=== PATIENT | male | born 1975 | race Caucasian/White ===

== ENCOUNTER 2017-09-04 11:40 | Inpatient (IN) | payer BC ==
[2017-09-04 12:16] LABS: Hematocrit 49 % (42-52); Hemoglobin 15.4 g/dl (14.0-18.0); Mean Corpuscular HGB Conc 32 g/dl (31-36); Mean Corpuscular Hemoglobin 28 pg (27-31); Mean Corpuscular Volume 88 fL (80-94); Mean Platelet Volume 9 um3 (7.4-10.4); Red Blood Count 5.55 10^6/ul (4.0-5.4); Red Cell Distribution Width 16 % (10.5-15); White Blood Count 12.2 10^3/ul (3.5-10.8)
[2017-09-04] MEDS ORDERED: methylPREDNISolone 125 MG* 2 ML VIAL IV ONE (12:24)
[2017-09-04] MEDS ORDERED: cefTRIAXone(*) 1 GM in NS 0.9% 50 ML* 50 ML IVPB ONE (12:25)
[2017-09-04 12:27] LABS: Albumin 3.5 g/dL (3.2-5.2); BUN/Creatinine Ratio 15.5 (8-20); Calcium 8.9 mg/dL (8.6-10.3); EGFR African American 200.6 (>60); Globulin 3.3 g/dL (2-4); Potassium 4.3 mmol/L (3.5-5.0); Total Bilirubin 0.6 mg/dL (0.2-1.0); Total Protein 6.8 g/dL (6.4-8.9)
[2017-09-04 12:29] LABS: Troponin I 0.02 ng/mL (<0.04)
--- NOTE | 2017-09-04 12:45 | RAD ---
Indication: Shortness of breath. Single frontal view of the chest performed at 1215 hours was reviewed. Comparison is made with previous exam dated March 09, 2017. Right basilar atelectasis is noted. Left lung field is clear. IMPRESSION: LIKELY RIGHT BASILAR ATELECTASIS. ELEVATED RIGHT HEMIDIAPHRAGM.
[2017-09-04] MEDS ORDERED: Albuterol/Ipratropium NEB.SOL* Albuterol 2.5 MG/Ipratropium 0.5 MG 3 ML INH SCH (13:00)
[2017-09-04] MEDS ORDERED: cefTRIAXone VIAL(*) 1,000 MG in NS 0.9% 50 ML* 50 ML IVPB ONE (13:00)
[2017-09-04] MEDS ORDERED: Azithromycin IV(*) 500 MG in NS 0.9% 250 ML* 250 ML IVPB ONE (13:22)
[2017-09-04] MEDS ORDERED: Azithromycin IV* 500 MG ADVAN VIAL IVPB ONE (13:38)
[2017-09-04] MEDS ORDERED: Iohexol 350* (CONTRAST) 500 ML MDV IV ONE (14:00)
[2017-09-04] MEDS ORDERED: Acetaminophen TAB* 325 MG PO PRN (14:07)
[2017-09-04] MEDS ORDERED: Ondansetron INJ* 2 MG/ML VIAL IV PRN (14:07)
[2017-09-04] MEDS ORDERED: Dextrose 50% Syringe 50 ML* 25 GM/50 ML SYRINGE IV PUSH PRN (14:10)
[2017-09-04 14:21] LABS: PCO2 Arterial 75 mmHg (35-45)
[2017-09-04] MEDS ORDERED: Insulin GLARGINE(*) 1 UNITS UNIT SUBCUT ONE (14:43)
[2017-09-04] MEDS ORDERED: Insulin LISPRO* 1 UNITS UNIT SUBCUT ONE (14:44)
[2017-09-04] MEDS ORDERED: Albuterol 2.5 MG/3 ML NEB.SOL* (0.083%) INH SCH (15:00)
--- NOTE | 2017-09-04 15:03 | RAD ---
Indication: Hypoxia, tachycardia. Contrast: Administered 99.1 ml of OMNIPAQUE 350 mg/ml. CTA of the chest was performed after IV contrast administration. Coronal and sagittal reconstructed images were obtained. The pulmonary arterial tree is moderately opacified. No obvious filling defects are noted. Aorta demonstrates no evidence of aortic dissection or dilatation. The heart demonstrates no pericardial effusion. There is airspace disease in the right middle lobe air bronchograms consistent with right middle lobe pneumonia. No pleural fluid is identified. Heart demonstrates no pericardial effusion. No mediastinal or hilar adenopathy is noted. The visualized abdominal organs are grossly unremarkable. IMPRESSION: No evidence of pulmonary embolus is noted. Findings consistent with right middle lobe pneumonia.
[2017-09-04] MEDS ORDERED: Albuterol/Ipratropium NEB.SOL* Albuterol 2.5 MG/Ipratropium 0.5 MG 3 ML INH PRN (15:38)
[2017-09-04] MEDS: Lisinopril TAB* 10 MG PO SCH (15:54)
[2017-09-04] MEDS: Heparin VIAL(*) 5000 UNITS/ML VIAL (FIVE THOUSAND) SUBCUT SCH ×2 (15:54→23:05)
[2017-09-04] MEDS: methylPREDNISolone SOD 40 MG* 1 ML VIAL IV SCH ×2 (15:55→23:06)
[2017-09-04] MEDS: Insulin LISPRO* 1 UNITS UNIT SUBCUT SCH ×2 (16:51→23:03)
--- NOTE | 2017-09-04 17:03 | PN ---
Hospitalist Progress Note HOSPITALIST ADDENDUM: Attempt made for BiPAP and patient refused due to claustrophobia with masks. D/ w patient risks of uncorrected acidosis adn explained that this is part of the treatment for his pneumonia. Patient demonstrated understanding of risk and prefers to wear oxygen only. See full H&P for remainder treatment plan.
[2017-09-04] MEDS ORDERED: Influenza VAC *QUAD* 2017-18* 0.5 ML SYRINGE IM ONE (18:00)
[2017-09-04] MEDS: hydrALAZINE IV* 20 MG/ML VIAL IV SLOW PU PRN (19:22)
--- NOTE | 2017-09-04 21:40 | HP ---
CC: Dr. Christie at [facility] * HISTORY AND PHYSICAL: DATE OF ADMISSION: 09/04/17 PRIMARY CARE PHYSICIAN: Dr. Christie at [facility]. ATTENDING PHYSICIAN: Jeana Schmidt MD * (report dictated by Mya Cruz NP). CHIEF COMPLAINT: Shortness of breath. HISTORY OF PRESENT ILLNESS: The patient is a 41-year-old male with a history of morbid obesity, hypertension, diabetes, hyperlipidemia, who presented to [facility] care today with the complaint of 10 days of chest cold. He has been using [id number] treatments such as Tylenol and NyQuil. The patient reported feeling clammy with flu symptoms as well as intermittent cough and achiness. The patient had a lapse in his health insurance, hence he was not able to seek out care during this time. He found a bottle of amoxicillin that he had left over and took 4 days of the 500 mg dose. He felt better while on the antibiotics, but once they finished, he began to feel worse. For the last 4 days, he has been worsening cough, lethargy as well as dyspnea on exertion. The patient denied any chills, sweats or fever. The patient also reported some mild pleuritic chest pain that he feels is secondary to his coughing. In addition, the patient ran out of his diabetes medication and blood pressure medicine. The patient says normally his blood sugars run between 95 to 140. Today, the patient went to urgent care for further evaluation, there he was found to be hypoxic and sent to the emergency room here for further evaluation. In the emergency room, the patient was found to have a saturation of 85% on room air. The patient had a chest x-ray that showed likely right basilar atelectasis versus pneumonia. The patient has a slightly elevated white count at 12,000 and a blood gas that showed pH of 7.32 and a pCO2 of 75. The patient was given ceftriaxone and azithromycin. Hospitalists were called to evaluate the patient for admission. The patient will be admitted to the intensive care unit for aaoli-hi-anoadjo hypercarbic respiratory failure secondary to pneumonia. PAST MEDICAL HISTORY: 1. Morbid obesity. 2. Hypertension. 3. Diabetes. 4. Hyperlipidemia. 5. History of asthma as a kid. HOME MEDICATIONS: Include: 1. Glimepiride 2 mg oral twice daily. 2. Lipitor 10 mg oral daily. 3. Neurontin 300 mg at bedtime. 4. Lisinopril 50 mg daily. ALLERGIES: None. FAMILY HISTORY: The patient states hypertension runs in his family. He denies any other family history of diabetes or cancer. SOCIAL HISTORY: The patient smoked half a pack of cigarettes for 5 to 7 years, he quit 10 years ago. He states he drinks alcohol approximately 2 to 3 times a month, but not recently. 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 He is not , does not have children. He lives with his father, Shekhar Ann, who will be the surrogate decision maker in the event the patient cannot make decisions for himself. REVIEW OF SYSTEMS: I performed a 14-point review of systems. All the pertinent positives and negatives are mentioned in the history of present illness. The remaining review of systems are negative. PHYSICAL EXAMINATION GENERAL APPEARANCE: The patient is a morbidly obese male, sitting up in bed, in no apparent distress. VITAL SIGNS: Temperature 97.4, heart rate 90, respiratory rate 16, oxygen saturation 91%, currently on 5 L, blood pressure 160/88. HEAD, EYES, EARS, NOSE, and THROAT: Normocephalic/atraumatic. Pupils are equal and reactive to light. Extraocular movements were intact. NECK: Neck was supple. There is no lymphadenopathy noted. RESPIRATORY: There were some accessory muscle use. There was wheezing heard at the bases bilaterally as well as some rhonchi in the right base. CARDIAC: S1, S2 were crisp. There were no murmurs, rubs, or gallops heard. ABDOMEN: Firm, slightly reddened. Bowel sounds were distant. No pain on palpation. EXTREMITIES: There was no lower extremity edema. DP and PT pulses were 2+ and symmetric. MUSCULOSKELETAL: There is no clubbing or cyanosis noted. The patient exhibited equal strength in all extremities. NEURO: Cranial nerves II through XII were intact. The patient moves all extremities. Lower extremities were intact to light touch. PSYCH: The patient is alert and oriented x3. SKIN: There were no rashes or abnormalities seen. DIAGNOSTIC STUDIES/LAB DATA: Sodium 135, potassium 4.3, chloride 95, CO2 36, BUN 9, creatinine 0.58, glucose 342, lactic acid 1.3. Liver function tests within normal limits. Troponin is 0.02. White blood cell count 12.2, hemoglobin 15.4, hematocrit 49, platelet count 189,000. Blood gas; pH is 7.32, pCO2 75, pO2 62, bicarb 31.6, oxygen 91.3. EKG shows sinus rhythm with a rate of 96 with Q waves inferiorly. This is unchanged from a prior EKG earlier this year in February. Chest x-ray from today shows likely right basilar atelectasis, elevated right hemidiaphragm. IMPRESSION: This is a 41-year-old male with past medical history significant for morbid obesity, hypertension, diabetes currently uncontrolled, who presents to the emergency room with worsening shortness of breath, found to have acute hypercarbic and hypoxic respiratory failure secondary to pneumonia. The patient will be admitted to the ICU. ASSESSMENT AND PLAN: 1. Acute mixed hypercarbic hypoxic respiratory failure secondary to pneumonia. The patient will be placed in the ICU and placed on BiPAP. Once the patient is on BiPAP for an hour, we will redraw blood gas and if the patient's respiratory acidosis has resolved, then the patient will be removed from BiPAP, at that point he will be allowed to eat. It is likely the respiratory failure is secondary to pneumonia as well as asthma exacerbation. The patient was given ceftriaxone and Zithromax here in the emergency room and these antibiotics will continue. In addition, the patient was given a dose of IV Solu-Medrol. Solu- Medrol will continue as well as albuterol nebulizers. Although the patient has no current history of asthma, it is likely he has obesity hypoventilation and will likely need a sleep study as an outpatient. Oxygen will be weaned as needed. In addition, given the patient has tachycardia and hypoxia as well as morbid obesity and recent immobility, he is at risk for pulmonary embolism. The patient will have a CT of his chest to rule out pulmonary embolism which will also provide better images of his right base. The patient may benefit from pulmonology outpatient referral at discharge. 2. Type 2 diabetes with hypoglycemia. The patient states he has been off his oral medications for 2 days. His sugar is close to 350. He will be given 15 of Lantus now as well as 25 of lispro. I will start Lantus daily in the morning and continue with an aggressive lispro sliding scale. Once he can eat, he will be started on a consistent carb diet. Oral diabetic medications will be held and can be restarted at discharge. 3. Hypertension. The patient's blood pressure is uncontrolled. He will receive lisinopril now and this will continue on a daily basis. 4. Fluids, electrolytes and nutrition. N.p.o. for while he is on BiPAP and consistent carb diet when able. 5. Code status is full. 6. DVT prophylaxis. He is at high risk. He will have subcu heparin. TIME SPENT: Time for this admission was 60 minutes, and over 35 minutes was spent with the patient discussing past medical history, medications, and events leading up to her arrival in the emergency room. Reviewed by MYA CRUZ NP 09/05/2017 [id number]/CPS #: [id number] [place]
[2017-09-04] MEDS: Gabapentin CAP(*) 300 MG PO SCH (23:11)
[2017-09-05] MEDS: Heparin VIAL(*) 5000 UNITS/ML VIAL (FIVE THOUSAND) SUBCUT SCH ×3 (06:03→22:14)
[2017-09-05 06:44] LABS: Hematocrit 48 % (42-52); Hemoglobin 14.9 g/dl (14.0-18.0); Mean Corpuscular HGB Conc 31 g/dl (31-36); Mean Corpuscular Hemoglobin 28 pg (27-31); Mean Corpuscular Volume 89 fL (80-94); Mean Platelet Volume 9 um3 (7.4-10.4); Red Blood Count 5.36 10^6/ul (4.0-5.4); Red Cell Distribution Width 16 % (10.5-15); White Blood Count 14.1 10^3/ul (3.5-10.8)
[2017-09-05 07:05] LABS: BUN/Creatinine Ratio 16.9 (8-20); Calcium 9.3 mg/dL (8.6-10.3); EGFR African American 175.9 (>60); EGFR Non-African American 136.8 (>60); Potassium 4.8 mmol/L (3.5-5.0)
[2017-09-05] MEDS: methylPREDNISolone SOD 40 MG* 1 ML VIAL IV SCH (07:40)
[2017-09-05 08:48] LABS: FIO2 6
[2017-09-05 08:58] LABS: PCO2 Arterial 76 mmHg (35-45)
[2017-09-05] MEDS: Lisinopril TAB* 10 MG PO SCH (09:21)
[2017-09-05] MEDS: Atorvastatin* 10 MG TAB PO SCH (09:23)
[2017-09-05] MEDS: Insulin GLARGINE(*) 1 UNITS UNIT SUBCUT SCH (09:23)
[2017-09-05] MEDS: Insulin LISPRO* 1 UNITS UNIT SUBCUT SCH ×4 (09:24→21:27)
--- NOTE | 2017-09-05 10:23 | PN ---
Subjective Date of Service: 09/05/17 Interval History: This is a 41 yo obese male with DM, HTN and HLD admitted yesterday with PNA. He was started on ceftriaxone/azithromycin. Initially recommended BiPAP which patient refused due to claustrophobia from the mask. This am, ABG looks similar , but patient reports significant improvement in symptoms. Still coughing occasionally. Dyspnea improving. Still on 6L supp O2, afebrile overnight. He denies abd pain, n/v/d. No CP. Objective Active Medications: Acetaminophen (Tylenol Tab*) 650 mg PO Q4H PRN PRN Reason: PAIN Albuterol/Ipratropium (Duoneb (Albuterol 2.5 Mg/Ipratropium 0.5 Mg)) 1 neb INH Q4H PRN PRN Reason: SOB/WHEEZING Atorvastatin Calcium (Lipitor*) 10 mg PO DAILY [facility] Last Admin: 09/05/17 09:23 Dose: 10 mg Dextrose (D50w Syringe 50 Ml*) 12.5 gm IV PUSH .FOR FS < 60 - SS PRN PRN Reason: FS < 60 Gabapentin (Neurontin Cap(*)) 300 mg PO BEDTIME [facility] Last Admin: 09/04/17 23:11 Dose: 300 mg Heparin Sodium (Porcine) (Heparin Vial(*)) 5,000 units SUBCUT Q8HR [facility] Last Admin: 09/05/17 06:03 Dose: 5,000 units Hydralazine HCl (Apresoline Iv*) 5 mg IV SLOW PU Q6H PRN PRN Reason: SBP>170 Last Admin: 09/04/17 19:22 Dose: 5 mg Ceftriaxone Sodium 1,000 mg/ (Sodium Chloride) 50 mls @ 200 mls/hr IVPB Q24H [facility] Azithromycin 500 mg/ Sodium (Chloride) 250 mls @ 250 mls/hr IVPB Q24H [facility] Insulin Glargine (Lantus(*)) 20 units SUBCUT DAILY [facility] Last Admin: 09/05/17 09:23 Dose: 20 unit Insulin Human Lispro (Humalog*) 0 - 15 units SUBCUT ACHS [facility] PRN Reason: Protocol Last Admin: 09/05/17 09:24 Dose: 15 unit Lisinopril (Prinivil Tab*) 15 mg PO DAILY [facility] Last Admin: 09/05/17 09:21 Dose: 15 mg Methylprednisolone Sodium Succinate (Solu-Medrol 40 Mg) 40 mg IV Q8H [facility] Last Admin: 09/05/17 07:40 Dose: 40 mg Ondansetron HCl (Zofran Inj*) 4 mg IV Q6H PRN PRN Reason: NAUSEA Vital Signs: Temp Pulse Resp BP Pulse Ox 97.8 F 91 20 154/83 94 09/05/17 03:47 09/05/17 03:47 09/05/17 03:47 09/05/17 03:47 09/05/17 03:47 Oxygen Devices in Use Now: Nasal Cannula Appearance: Morbidly obese, somewhat fatigued, but alert and in NAD Respiratory: Symmetrical Chest Expansion and Respiratory Effort, - - diffuse wheeze, few crackles in R lung calix Cardiovascular: NL Sounds; No Murmurs; No JVD, RRR Extremities: No Edema Skin: No Rash or Ulcers Neurological: Alert and Oriented x 3 Result Diagrams: 09/05/17 06:03 09/05/17 06:03 Microbiology and Other Data: Microbiology 09/04/17 15:30 Nasal Screen MRSA (PCR)([facility]) - Final Nasal Mrsa Negative 09/04/17 15:30 Influenza Types A,B Antigen ([facility]) - Final Nasal Specimen received for Influenza A/B Molecular testing Diagnostic Imaging: CXR - poor film quality, ?RLL infiltrate CTA chest - no PE, RML infiltrate Assess/Plan/Problems-Billing Assessment: This is a 41 yo male with morbid obesity, DM, HTN, HLD who presented with c/o SOB noted to be hypoxic with RML infiltrate on CT. Admitted with CAP. - Patient Problems (1) CAP (community acquired pneumonia) Comment: Associated acute resp acidosis, patient refused BiPAP Symptomatically improving Cont ceftriaxone/azithro Started corticosteroids for assumed associated RAD (2) Diabetes Comment: Significantly hyperglycemia, will check HgbA1c Assume most of the hyperglycemia at this time is due to acute illness and steroids Treat with basal/bolus regimen (3) Hypertension Comment: Moderately hypertensive, poorly controlled at admission Usual home medications restarted after being without for several days (4) Morbid obesity Comment: BMI 56 (5) Hyperlipidemia (6) Full code status (7) DVT prophylaxis Comment: Heparin SQ Status and Disposition: Full code. Anticipate additional 2-3d LOS. Requested SW consult to address potential insurance concerns
[2017-09-05] MEDS: cefTRIAXone VIAL(*) 1,000 MG in NS 0.9% 50 ML* 50 ML IVPB SCH (15:51)
[2017-09-05] MEDS: Azithromycin IV(*) 500 MG in NS 0.9% 250 ML* 250 ML IVPB SCH (16:33)
[2017-09-05] MEDS ORDERED: Insulin GLARGINE(*) 1 UNITS UNIT SUBCUT ONE (16:51)
[2017-09-05] MEDS: Gabapentin CAP(*) 300 MG PO SCH (21:24)
[2017-09-06] MEDS: Heparin VIAL(*) 5000 UNITS/ML VIAL (FIVE THOUSAND) SUBCUT SCH ×3 (05:41→21:26)
[2017-09-06 08:03] LABS: Hematocrit 46 % (42-52); Hemoglobin 14.4 g/dl (14.0-18.0); Mean Corpuscular HGB Conc 32 g/dl (31-36); Mean Corpuscular Hemoglobin 28 pg (27-31); Mean Corpuscular Volume 88 fL (80-94); Mean Platelet Volume 9 um3 (7.4-10.4); Red Blood Count 5.16 10^6/ul (4.0-5.4); Red Cell Distribution Width 16 % (10.5-15); White Blood Count 14.4 10^3/ul (3.5-10.8)
[2017-09-06] MEDS: Lisinopril TAB* 10 MG PO SCH (08:21)
[2017-09-06] MEDS: Atorvastatin* 10 MG TAB PO SCH (08:22)
[2017-09-06] MEDS: predniSONE TAB* 20 MG PO SCH (08:23)
[2017-09-06] MEDS: Insulin GLARGINE(*) 1 UNITS UNIT SUBCUT SCH (08:23)
[2017-09-06] MEDS: Insulin LISPRO* 1 UNITS UNIT SUBCUT SCH ×4 (08:24→21:26)
[2017-09-06 08:28] LABS: BUN/Creatinine Ratio 26.2 (8-20); Calcium 9.1 mg/dL (8.6-10.3); EGFR African American 189.3 (>60); EGFR Non-African American 147.2 (>60); Potassium 4.2 mmol/L (3.5-5.0)
--- NOTE | 2017-09-06 11:57 | ED ---
Patrica Bullard Jason, scribed for Ubaldo Pete MD on 09/04/17 at 1215 . Shortness of Breath - HPI Summary HPI Summary: This patient is a 41 year old M [place] [facility] by male with a chief complaint of SOB since 10 days. The patient rates the pain 0/10 in severity. Symptoms aggravated by nothing Symptoms alleviated by nothing. Patient reports coughing (non-productive), mild rhinorrhea. Patient denies CP, palpitations, fever, chills, sore throat. Additionally, the patient states he did not take the medication he usually takes. - History of Current Complaint Chief Complaint: EDShortnessOfBreath Time Seen by Provider: 09/04/17 12:08 Hx Obtained From: Patient Onset/Duration: Gradual Onset, Lasting Days - since 10 days ago, Still Present Aggrevating Factors: Nothing Alleviating Factors: Nothing Associated Signs & Symptoms: Negative - CP, palpitations, fever, chills, sore throat, Cough (Nonproductive) - Allergy/Home Medications Allergies/Adverse Reactions: Allergies Allergy/AdvReac Type Severity Reaction Status Date / Time No Known Allergies Allergy Verified 09/04/17 12:03 PMH/Surg Hx/FS Hx/Imm Hx Previously Healthy: No Endocrine/Hematology History: Reports: Hx Diabetes - type 2 Denies: Hx Thyroid Disease Cardiovascular History: Denies: Hx Hypertension Respiratory History: Reports: Hx Asthma - as a child Denies: Hx Chronic Obstructive Pulmonary Disease (COPD) GI History: Denies: Hx Ulcer Infectious Disease History: Yes Infectious Disease History: Denies: Hx Clostridium Difficile, Hx Hepatitis, Hx Human Immunodeficiency Virus (HIV), History Other Infectious Disease, Traveled Outside the in Last 30 Days - Family History Known Family History: Positive: Hypertension, Diabetes Negative: Cardiac Disease - Social History Occupation: Employed Full-time Lives: Alone Alcohol Use: Occasionally Substance Use Type: Reports: None Smoking Status (MU): Former Smoker Review of Systems Negative: Fever, Chills Positive: Other - mild rhinorrhea. Negative: Sore Throat Negative: Palpitations, Chest Pain Positive: Cough - non-productive All Other Systems Reviewed And Are Negative: Yes Physical Exam - Summary Physical Exam Summary: VITAL SIGNS: Reviewed. GENERAL: ~Patient is an obese male who is lying comfortable in the stretcher. ~ Patient is not in any acute respiratory distress. HEAD AND FACE: No signs of trauma. ~No ecchymosis, hematomas or skull depressions. No sinus tenderness. EYES: PERRLA, EOMI x 2, No injected conjunctiva, no nystagmus. EARS: Hearing grossly intact. Ear canals and tympanic membranes are within normal limits. MOUTH: Oropharynx within normal limits. NECK: Supple, trachea is midline, no adenopathy, no JVD, no carotid bruit, no c- spine tenderness, neck with full ROM. CHEST: Symmetric, no tenderness at palpation LUNGS: Clear to auscultation bilaterally. No wheezing or crackles. Decreased breath sounds bilaterally. CVS: Tachycardic, S1 and S2 present, no murmurs or gallops appreciated. ABDOMEN: Soft, non-tender. No signs of distention. No rebound no guarding, and no masses palpated. Bowel sounds are normal. EXTREMITIES: FROM in all major joints, no edema, no cyanosis or clubbing. NEURO: Alert and oriented x 3. No acute neurological deficits. Speech is normal and follows commands. SKIN: Dry and warm Triage Information Reviewed: Yes Vital Signs On Initial Exam: Initial Vitals Temp Pulse Resp BP Pulse Ox 97.4 F 96 22 162/96 92 09/04/17 11:44 09/04/17 11:44 09/04/17 11:44 09/04/17 11:44 09/04/17 11:44 Vital Signs Reviewed: Yes - [place] Coma Scale Coma Scale Total: 15 Diagnostics - Vital Signs Vital Signs Temp Pulse Resp BP Pulse Ox 09/04/17 12:10 30 09/04/17 12:00 93 28 178/96 93 09/04/17 11:50 93 24 91 09/04/17 11:49 160/91 09/04/17 11:44 97.4 F 96 22 162/96 92 - Laboratory Lab Results: Lab Results 09/04/17 09/04/17 09/04/17 Range/Units 12:05 12:05 12:05 WBC 12.2 H (3.5-10.8) 10^3/ul RBC 5.55 H (4.0-5.4) 10^6/ul Hgb 15.4 (14.0-18.0) g/dl Hct 49 (42-52) % MCV 88 (80-94) fL MCH 28 (27-31) pg MCHC 32 (31-36) g/dl RDW 16 H (10.5-15) % Plt Count 189 (150-450) 10^3/ul MPV 9 (7.4-10.4) um3 Neut % (Auto) 87.2 H (38-83) % Lymph % (Auto) 7.3 L (25-47) % Bertie % (Auto) 5.0 (1-9) % Eos % (Auto) 0.3 (0-6) % Baso % (Auto) 0.2 (0-2) % Absolute Neuts (auto) 10.6 H (1.5-7.7) 10^3/ul Absolute Lymphs (auto) 0.9 L (1.0-4.8) 10^3/ul Absolute Monos (auto) 0.6 (0-0.8) 10^3/ul Absolute Eos (auto) 0 (0-0.6) 10^3/ul Absolute Basos (auto) 0 (0-0.2) 10^3/ul Absolute Nucleated RBC 0.01 10^3/ul Nucleated RBC % 0 ABG pH (7.35-7.45) ABG pCO2 (35-45) mmHg ABG pO2 (80-100) mmHg ABG HCO3 (19-31) mmol/L ABG O2 Saturation (95-98) % ABG Base Excess (-2.0-2.0) Sodium 135 (133-145) mmol/L Potassium 4.3 (3.5-5.0) mmol/L Chloride 95 L (101-111) mmol/L Carbon Dioxide 36 H (22-32) mmol/L Anion Gap 4 (2-11) mmol/L BUN 9 (6-24) mg/dL Creatinine 0.58 L (0.67-1.17) mg/dL Est GFR ( Amer) 200.6 (>60) Est GFR (Non-Af Amer) 156.0 (>60) BUN/Creatinine Ratio 15.5 (8-20) Glucose 342 H (70-100) mg/dL Lactic Acid 1.3 (0.5-2.0) mmol/L Calcium 8.9 (8.6-10.3) mg/dL Total Bilirubin 0.60 (0.2-1.0) mg/dL AST 19 (13-39) U/L ALT 33 (7-52) U/L Alkaline Phosphatase 83 (34-104) U/L Troponin I 0.02 (<0.04) ng/mL Total Protein 6.8 (6.4-8.9) g/dL Albumin 3.5 (3.2-5.2) g/dL Globulin 3.3 (2-4) g/dL Albumin/Globulin Ratio 1.1 (1-3) 09/04/17 Range/Units 14:00 WBC (3.5-10.8) 10^3/ul RBC (4.0-5.4) 10^6/ul Hgb (14.0-18.0) g/dl Hct (42-52) % MCV (80-94) fL MCH (27-31) pg MCHC (31-36) g/dl RDW (10.5-15) % Plt Count (150-450) 10^3/ul MPV (7.4-10.4) um3 Neut % (Auto) (38-83) % Lymph % (Auto) (25-47) % Bertie % (Auto) (1-9) % Eos % (Auto) (0-6) % Baso % (Auto) (0-2) % Absolute Neuts (auto) (1.5-7.7) 10^3/ul Absolute Lymphs (auto) (1.0-4.8) 10^3/ul Absolute Monos (auto) (0-0.8) 10^3/ul Absolute Eos (auto) (0-0.6) 10^3/ul Absolute Basos (auto) (0-0.2) 10^3/ul Absolute Nucleated RBC 10^3/ul Nucleated RBC % ABG pH 7.32 L (7.35-7.45) ABG pCO2 75 H* (35-45) mmHg ABG pO2 62 L (80-100) mmHg ABG HCO3 31.6 H (19-31) mmol/L ABG O2 Saturation 91.3 L (95-98) % ABG Base Excess 8.9 H (-2.0-2.0) Sodium (133-145) mmol/L Potassium (3.5-5.0) mmol/L Chloride (101-111) mmol/L Carbon Dioxide (22-32) mmol/L Anion Gap (2-11) mmol/L BUN (6-24) mg/dL Creatinine (0.67-1.17) mg/dL Est GFR ( Amer) (>60) Est GFR (Non-Af Amer) (>60) BUN/Creatinine Ratio (8-20) Glucose (70-100) mg/dL Lactic Acid (0.5-2.0) mmol/L Calcium (8.6-10.3) mg/dL Total Bilirubin (0.2-1.0) mg/dL AST (13-39) U/L ALT (7-52) U/L Alkaline Phosphatase (34-104) U/L Troponin I (<0.04) ng/mL Total Protein (6.4-8.9) g/dL Albumin (3.2-5.2) g/dL Globulin (2-4) g/dL Albumin/Globulin Ratio (1-3) Result Diagrams: 09/06/17 07:41 09/06/17 07:41 Lab Statement: Any lab studies that have been ordered have been reviewed, and results considered in the medical decision making process. - Radiology CXR Radiology Interpretation Completed By: Radiologist - LIKELY RIGHT BASILAR ATELECTASIS. ELEVATED RIGHT HEMIDIAPHRAGM. ED physician has reviewed this radiology report and agrees. - CT chest/thorax CT Interpretation Completed By: Radiologist - No evidence of pulmonary embolus is noted. Findings consistent with right middle lobe pneumonia. ED physician has reviewed this radiology report and agrees. - EKG 1302 Cardiac Rate: NL EKG Rhythm: Sinus Rhythm ST Segment: Normal - No ST elevations EKG Interpretation: Q waves in 2, 3, and AVF. Course/Dx - Course Course Of Treatment: This patient is a 41 year old M BIBA to [facility] accompanied by male with a chief complaint of SOB since 10 days. The patient rates the pain 0/10 in severity. Symptoms aggravated by nothing Symptoms alleviated by nothing. Patient reports coughing (non-productive), mild rhinorrhea. Patient denies CP, palpitations, fever, chills, sore throat. Additionally, the patient did not take the medication he usually takes. Blood work is without significant abnormalities except WBC of 12.2 without bandemia, Glucose of 342 consistent with his diabetes. ABG has a pH of 7.32. pCO2 is 75,pO2 is 62, O2 saturation is 91. CXR reveals, per radiologist, LIKELY RIGHT BASILAR ATELECTASIS. ELEVATED RIGHT HEMIDIAPHRAGM.Chest/Thorax CTA reveals No evidence of pulmonary embolus is noted. Findings consistent with right middle lobe pneumonia. Assessment/Plan: The pt was given rocephin and azithromycin. The patient has developed pneumonia and was placed in a bipap because of his hypoxia and hyperpnea. I discussed findings with Dr. Rendon, and she has accepted the pt for admission. The pt is hemodynamically stable, alert and oriented x3. - Diagnoses Differential Diagnosis/HQI/PQRI: Positive: Bronchitis, CHF, Chest Wall Pain, COPD Exacerbation, Pneumonia Provider Diagnoses: Pneumonia Discharge - Discharge Plan Condition: Stable Disposition: ADMITTED TO [facility] documentation as recorded by the Patrica thorne Jason accurately reflects the service I personally performed and the decisions made by , Ubaldo Pete MD.
[2017-09-06] MEDS ORDERED: Insulin GLARGINE(*) 1 UNITS UNIT SUBCUT ONE (13:04)
--- NOTE | 2017-09-06 13:05 | PN ---
Subjective Date of Service: 09/06/17 Interval History: Patient still has a freq cough, dyspnea improving. He was able to take a shower today with few symptoms. Objective Active Medications: Acetaminophen (Tylenol Tab*) 650 mg PO Q4H PRN PRN Reason: PAIN Albuterol/Ipratropium (Duoneb (Albuterol 2.5 Mg/Ipratropium 0.5 Mg)) 1 neb INH Q4H PRN PRN Reason: SOB/WHEEZING Atorvastatin Calcium (Lipitor*) 10 mg PO DAILY [facility] Last Admin: 09/06/17 08:22 Dose: 10 mg Dextrose (D50w Syringe 50 Ml*) 12.5 gm IV PUSH .FOR FS < 60 - SS PRN PRN Reason: FS < 60 Gabapentin (Neurontin Cap(*)) 300 mg PO BEDTIME [facility] Last Admin: 09/05/17 21:24 Dose: 300 mg Heparin Sodium (Porcine) (Heparin Vial(*)) 5,000 units SUBCUT Q8HR [facility] Last Admin: 09/06/17 12:38 Dose: 5,000 units Hydralazine HCl (Apresoline Iv*) 5 mg IV SLOW PU Q6H PRN PRN Reason: SBP>170 Last Admin: 09/04/17 19:22 Dose: 5 mg Ceftriaxone Sodium 1,000 mg/ (Sodium Chloride) 50 mls @ 200 mls/hr IVPB Q24H [facility] Last Admin: 09/05/17 15:51 Dose: 200 mls/hr Azithromycin 500 mg/ Sodium (Chloride) 250 mls @ 250 mls/hr IVPB Q24H [facility] Last Admin: 09/05/17 16:33 Dose: 250 mls/hr Insulin Glargine (Lantus(*)) 40 units SUBCUT DAILY [facility] Insulin Human Lispro (Humalog*) 0 - 15 units SUBCUT ACHS [facility] PRN Reason: Protocol Last Admin: 09/06/17 12:37 Dose: 15 unit Lisinopril (Prinivil Tab*) 15 mg PO DAILY [facility] Last Admin: 09/06/17 08:21 Dose: 15 mg Ondansetron HCl (Zofran Inj*) 4 mg IV Q6H PRN PRN Reason: NAUSEA Prednisone (Deltasone Tab*) 40 mg PO DAILY [facility] Last Admin: 09/06/17 08:23 Dose: 40 mg Vital Signs: Temp Pulse Resp BP Pulse Ox 97.7 F 88 18 158/82 92 09/06/17 08:04 09/06/17 08:04 09/06/17 08:04 09/06/17 08:15 09/06/17 08:04 Oxygen Devices in Use Now: Nasal Cannula Appearance: Well appearing obese young gentleman in NAD Respiratory: Symmetrical Chest Expansion and Respiratory Effort, - - diffuse wheeze, no crackles or rhonchi Cardiovascular: NL Sounds; No Murmurs; No JVD, RRR Abdominal: NL Sounds; No Tenderness; No Distention Extremities: No Edema Skin: No Rash or Ulcers Neurological: Alert and Oriented x 3 Result Diagrams: 09/06/17 07:41 09/06/17 07:41 Additional Lab and Data: . Microbiology and Other Data: Microbiology 09/04/17 15:30 Nasal Screen MRSA (PCR)([facility]) - Final Nasal Mrsa Negative 09/04/17 15:30 Influenza Types A,B Antigen ([facility]) - Final Nasal Specimen received for Influenza A/B Molecular testing Diagnostic Imaging: CXR - poor film quality, ?RLL infiltrate CTA chest - no PE, RML infiltrate Assess/Plan/Problems-Billing Assessment: This is a 41 yo male with morbid obesity, DM, HTN, HLD who presented with c/o SOB noted to be hypoxic with RML infiltrate on CT. Admitted with CAP. - Patient Problems (1) CAP (community acquired pneumonia) Comment: Associated acute resp acidosis, patient refused BiPAP Symptomatically improving Cont ceftriaxone/azithro Started corticosteroids for assumed associated RAD as he does have a wheeze on exam (2) Diabetes Comment: Significantly hyperglycemia HgbA1c 11.3% Will titrate up Lantus, he will need to go home with insulin (3) Hypertension Comment: Moderately hypertensive, poorly controlled at admission Usual home medications restarted after being without for several days Will add amlodipine to his lisinopril for better control (4) Morbid obesity Comment: BMI 56 (5) Hyperlipidemia (6) Full code status (7) DVT prophylaxis Comment: Heparin SQ Status and Disposition: Full code. Anticipate additional 1-2d LOS.
[2017-09-06] MEDS: amLODIPine TAB* 5 MG PO SCH (13:37)
[2017-09-06] MEDS: cefTRIAXone VIAL(*) 1,000 MG in NS 0.9% 50 ML* 50 ML IVPB SCH (15:27)
[2017-09-06] MEDS: Azithromycin IV(*) 500 MG in NS 0.9% 250 ML* 250 ML IVPB SCH (16:08)
[2017-09-06] MEDS: Gabapentin CAP(*) 300 MG PO SCH (21:25)
[2017-09-07] MEDS ORDERED: Benzonatate CAP* 100 MG PO PRN (02:48)
[2017-09-07] MEDS: Heparin VIAL(*) 5000 UNITS/ML VIAL (FIVE THOUSAND) SUBCUT SCH ×3 (05:49→21:08)
[2017-09-07 07:46] LABS: Hematocrit 44 % (42-52); Hemoglobin 14.1 g/dl (14.0-18.0); Mean Corpuscular HGB Conc 32 g/dl (31-36); Mean Corpuscular Hemoglobin 28 pg (27-31); Mean Corpuscular Volume 88 fL (80-94); Mean Platelet Volume 9 um3 (7.4-10.4); Red Blood Count 5.06 10^6/ul (4.0-5.4); Red Cell Distribution Width 16 % (10.5-15); White Blood Count 10.5 10^3/ul (3.5-10.8)
[2017-09-07 07:54] LABS: BUN/Creatinine Ratio 24.1 (8-20); Calcium 9.1 mg/dL (8.6-10.3); EGFR African American 200.6 (>60); Potassium 4.2 mmol/L (3.5-5.0)
[2017-09-07] MEDS: Insulin LISPRO* 1 UNITS UNIT SUBCUT SCH ×4 (08:34→21:06)
[2017-09-07] MEDS: amLODIPine TAB* 5 MG PO SCH (08:38)
[2017-09-07] MEDS: Atorvastatin* 10 MG TAB PO SCH (08:38)
[2017-09-07] MEDS: predniSONE TAB* 20 MG PO SCH (08:38)
[2017-09-07] MEDS: Lisinopril TAB* 10 MG PO SCH (08:42)
[2017-09-07] MEDS ORDERED: Insulin GLARGINE(*) 1 UNITS UNIT SUBCUT SCH (09:00)
--- NOTE | 2017-09-07 10:13 | PN ---
Subjective Date of Service: 09/07/17 Interval History: Patient reports that he continues to improve symptomatically. He denies any dyspnea, still has an occasional cough. He was evaluated after returning from the bathroom without O2. Saturations were checked and noted to be in the high 60s at rest, he was not terribly symptomatic at that time. He improved in to the mid 90s on 2L within ~60sec of application. Objective Active Medications: Acetaminophen (Tylenol Tab*) 650 mg PO Q4H PRN PRN Reason: PAIN Albuterol/Ipratropium (Duoneb (Albuterol 2.5 Mg/Ipratropium 0.5 Mg)) 1 neb INH Q4H PRN PRN Reason: SOB/WHEEZING Amlodipine Besylate (Norvasc Tab*) 5 mg PO DAILY [facility] Last Admin: 09/07/17 08:38 Dose: 5 mg Atorvastatin Calcium (Lipitor*) 10 mg PO DAILY [facility] Last Admin: 09/07/17 08:38 Dose: 10 mg Benzonatate (Tessalon Cap*) 100 mg PO Q8H PRN PRN Reason: COUGH Last Admin: 09/07/17 03:48 Dose: 100 mg Dextrose (D50w Syringe 50 Ml*) 12.5 gm IV PUSH .FOR FS < 60 - SS PRN PRN Reason: FS < 60 Gabapentin (Neurontin Cap(*)) 300 mg PO BEDTIME [facility] Last Admin: 09/06/17 21:25 Dose: 300 mg Heparin Sodium (Porcine) (Heparin Vial(*)) 5,000 units SUBCUT Q8HR [facility] Last Admin: 09/07/17 05:49 Dose: 5,000 units Hydralazine HCl (Apresoline Iv*) 5 mg IV SLOW PU Q6H PRN PRN Reason: SBP>170 Last Admin: 09/04/17 19:22 Dose: 5 mg Ceftriaxone Sodium 1,000 mg/ (Sodium Chloride) 50 mls @ 200 mls/hr IVPB Q24H [facility] Last Admin: 09/06/17 15:27 Dose: 200 mls/hr Azithromycin 500 mg/ Sodium (Chloride) 250 mls @ 250 mls/hr IVPB Q24H [facility] Last Admin: 09/06/17 16:08 Dose: 250 mls/hr Insulin Glargine (Lantus(*)) 40 units SUBCUT DAILY [facility] Last Admin: 09/07/17 08:36 Dose: 40 units Insulin Human Lispro (Humalog*) 0 - 15 units SUBCUT ACHS [facility] PRN Reason: Protocol Last Admin: 09/07/17 08:34 Dose: 9 unit Lisinopril (Prinivil Tab*) 15 mg PO DAILY [facility] Last Admin: 09/07/17 08:42 Dose: 15 mg Ondansetron HCl (Zofran Inj*) 4 mg IV Q6H PRN PRN Reason: NAUSEA Prednisone (Deltasone Tab*) 40 mg PO DAILY [facility] Last Admin: 09/07/17 08:38 Dose: 40 mg Vital Signs: Temp Pulse Resp BP Pulse Ox 97.5 F 92 22 154/83 93 09/07/17 08:12 09/07/17 08:12 09/07/17 08:12 09/07/17 04:07 09/07/17 08:12 Oxygen Devices in Use Now: Nasal Cannula Appearance: Well appearing obese gentleman in NAD Respiratory: Symmetrical Chest Expansion and Respiratory Effort, - - faint wheeze noted, improved compared to yesterday Cardiovascular: NL Sounds; No Murmurs; No JVD, RRR Extremities: No Edema Skin: No Rash or Ulcers Neurological: Alert and Oriented x 3 Result Diagrams: 09/07/17 07:15 09/07/17 07:15 Additional Lab and Data: . Microbiology and Other Data: Microbiology 09/04/17 15:30 Nasal Screen MRSA (PCR)([facility]) - Final Nasal Mrsa Negative 09/04/17 15:30 Influenza Types A,B Antigen ([facility]) - Final Nasal Specimen received for Influenza A/B Molecular testing Diagnostic Imaging: CXR - poor film quality, ?RLL infiltrate CTA chest - no PE, RML infiltrate Assess/Plan/Problems-Billing Assessment: This is a 41 yo male with morbid obesity, DM, HTN, HLD who presented with c/o SOB noted to be hypoxic with RML infiltrate on CT. Admitted with CAP. - Patient Problems (1) CAP (community acquired pneumonia) Comment: Associated acute resp acidosis, patient refused BiPAP Symptomatically improving Cont ceftriaxone/azithro Will start to taper oral steroids (2) Diabetes Comment: Significantly hyperglycemia HgbA1c 11.3% Cont to titrate up Lantus, he will need to go home with insulin which he is agreeable to (3) Hypertension Comment: Moderately hypertensive, poorly controlled at admission Added amlodipine to his lisinopril for better control (4) Morbid obesity Comment: BMI 56 (5) Hyperlipidemia (6) Full code status (7) DVT prophylaxis Comment: Heparin SQ Status and Disposition: Full code. Anticipate additional 1-2d LOS
[2017-09-07] MEDS: cefTRIAXone VIAL(*) 1,000 MG in NS 0.9% 50 ML* 50 ML IVPB SCH (15:30)
[2017-09-07] MEDS: Azithromycin IV(*) 500 MG in NS 0.9% 250 ML* 250 ML IVPB SCH (15:58)
[2017-09-07] MEDS ORDERED: Insulin GLARGINE(*) 1 UNITS UNIT SUBCUT ONE (17:17)
[2017-09-07] MEDS: Gabapentin CAP(*) 300 MG PO SCH (21:06)
[2017-09-08] MEDS: hydrALAZINE IV* 20 MG/ML VIAL IV SLOW PU PRN ×2 (04:25→09:10)
[2017-09-08] MEDS: Heparin VIAL(*) 5000 UNITS/ML VIAL (FIVE THOUSAND) SUBCUT SCH (05:30)
[2017-09-08] MEDS: Insulin LISPRO* 1 UNITS UNIT SUBCUT SCH (08:43)
[2017-09-08] MEDS: Atorvastatin* 10 MG TAB PO SCH (08:48)
[2017-09-08] MEDS: predniSONE TAB* 20 MG PO SCH (08:49)
[2017-09-08] MEDS ORDERED: amLODIPine TAB* 5 MG PO SCH (09:00)
[2017-09-08] MEDS ORDERED: Insulin GLARGINE(*) 1 UNITS UNIT SUBCUT SCH (09:00)
[2017-09-08] MEDS: Lisinopril TAB* 10 MG PO SCH (09:09)
[2017-09-08 10:26] VITALS: BP 175/89
--- NOTE | 2017-09-09 02:02 | DS ---
CC: Dr. Christie * DISCHARGE SUMMARY: DATE OF ADMISSION: 09/04/17 DATE OF DISCHARGE: 09/08/17. PRIMARY CARE PROVIDER: Dr. Christie. DISCHARGING PROVIDER: MARK Haddad SUPERVISING PHYSICIAN: Benoit De Leon * (DICTATED BY MARK HADDAD) PRIMARY DISCHARGE DIAGNOSES: 1. Community-acquired pneumonia - still hypoxic at the time of discharge, requiring 2 L via nasal cannula at rest and with activity. 2. Diabetes - poorly controlled with a hemoglobin A1c of 11.3%, discharged on Lantus, and insulin is new to him. 3. Hypertension - poorly controlled, added amlodipine to his prior lisinopril. SECONDARY DISCHARGE DIAGNOSES: 1. Morbid obesity with a BMI of 56. 2. Hyperlipidemia. DISCHARGE MEDICATIONS: 1. Amlodipine 10 mg p.o. daily. 2. Atorvastatin 10 mg p.o. daily. 3. Gabapentin 300 mg p.o. at bedtime. 4. Glimepiride 2 mg p.o. twice daily. 5. Lantus SoloSTAR 50 units subcu daily. 6. Levaquin 750 mg p.o. daily x5 days. 7. Lisinopril 15 mg p.o. daily. 8. Prednisone with instructions to take 20 mg x3 days followed by 10 mg x3 days. MEDICATION CHANGES: 1. Start Lantus. 2. Levaquin x5 days. 3. Start amlodipine. 4. Prednisone in tapering doses noted above. HOSPITAL IMAGIN. Chest x-ray 09/04/17 shows likely a right basilar atelectasis and an elevated right hemidiaphragm. 2. Chest CTA shows no evidence of PE but findings consistent with a right middle lobe pneumonia. HOSPITAL COURSE: This is a very pleasant 41-year-old gentleman who is morbidly obese with hypertension, hyperlipidemia and poorly controlled diabetes who presented to the emergency department with complaints of shortness of breath. The patient states that he had had cold-like symptoms for approximately 10 days prior to admission including cough and intermittent achiness and subjective fevers. He reported some associated pleuritic chest pain, which he acquited to his coughing. Also of note, the patient reported that he had a lapse in his health insurance and ran out of his medications for at least several days and possibly longer prior to this hospital admission. When he reached the emergency department, the patient was noted to be hypoxic with saturations measured at 85% on room air. His initial labs showed moderate leukocytosis with white blood cell count of 12,200. His initial blood gas showed mild respiratory acidosis with a pH of 7.32, pCO2 of 52 and a bicarb of 31. His initial chemistries were significant only for elevated glucose to 342 mg/dL. Initial lactic acid was normal. Influenza testing was negative. Initial chest x- ray showed what was interpreted as possible right basilar atelectasis. He underwent CTA of the chest to evaluate for PE, which was negative for PE but did demonstrate a right middle lobe infiltrate consistent with pneumonia. The patient was subsequently admitted for treatment of a community-acquired pneumonia with associated partially compensated respiratory acidosis. The patient was recommended to ICU for BiPAP, which he refused due to severe claustrophobia. He was subsequently admitted to medical floor on 6 L of supplemental oxygen via nasal cannula. The patient was started on ceftriaxone and azithromycin for coverage of community-acquired pathogens. He also had rather significant wheeze noted on initial exam and was subsequently started on oral corticosteroids. The patient complains of cough and dyspnea improved over his hospital stay and he remained afebrile. His oxygen requirements improved but he remained hypoxic. The patient was quite anxious for discharge and apart from his hypoxia, he was relatively asymptomatic and was agreeable to discharge with supplemental O2. The patient's blood glucose and blood pressure were both noted to be poorly controlled during his hospitalization, likely exacerbated by the use of corticosteroids. The patient required rather significant doses of insulin and hemoglobin A1c was checked, which returned at 11.3%. The patient was recommended to start Lantus at the time of discharge, which he was agreeable to. This may require further titration in dose. In regards to his blood pressure, he was started on amlodipine and continued on his usual lisinopril with some improvement in blood pressure control during his hospitalization. DISPOSITION AND FOLLOWUP PLAN: The patient is being discharged to home. He states that his father is available at home to help him. He requires 2 L of supplemental oxygen at all times. He was prescribed an additional 5 days of Levaquin and a tapering dose of prednisone. He was discharged with Lantus at above dosing with instructions to check and record his fasting blood glucose daily and followup with his primary care provider regarding further titration of his Lantus dose. His blood pressure also requires followup to ensure improved control. The patient requires followup with his primary care provider within the next week to address the above issues. We will also recommend reassessing need for continue supplemental oxygen at that time by checking both resting and ambulatory oximetry. The patient is in agreement with the above plan. TIME SPENT: Greater than 30 minutes was spent on this discharge. MARK HADDAD [id number]/[facility] #: [id number] QAUILES
== END 2017-09-08 11:45 | disposition home or self-care (01) | DRG 133 ==
LOC: ED 11:40 → ICU 14:06 → MED 17:56
PROVIDERS: ADMIT Internal Medicine; ATTEND Internal Medicine
DX: J96.21 Acute and chronic respiratory failure with hypoxia (principal); J18.9 Pneumonia, unspecified organism; E11.65 Type 2 diabetes mellitus with hyperglycemia; E66.01 Morbid (severe) obesity due to excess calories; Z68.43 Body mass index [BMI] 50.0-59.9, adult; J96.22 Acute and chronic respiratory failure with hypercapnia; J45.909 Unspecified asthma, uncomplicated; E78.5 Hyperlipidemia, unspecified; F40.240 Claustrophobia; Z79.4 Long term (current) use of insulin; Z83.3 Family history of diabetes mellitus; Z82.49 Family history of ischemic heart disease and other diseases of the circulatory system; Z72.89 Other problems related to lifestyle; Z87.891 Personal history of nicotine dependence; Z87.2 Personal history of diseases of the skin and subcutaneous tissue
CPT/HCPCS: 36415; 36600; 71010; 71275; 80048; 80053; 82803; 82947; 83036; 83605; 84484; 85025; 87040; 87070; 87205; 87502; 87641; 87899; 90686; 93005; 94640; 94760; 99213; A9270-GY; G0463; J0360; J0456; J0696; J1644; J2920; J2930; J7512; Q9967

== ENCOUNTER 2017-12-15 11:25 | Emergency (ER) | payer SELFPAY ==
[2017-12-15 12:09] VITALS: BP 154/98
--- NOTE | 2017-12-15 13:29 | UC ---
Ear Complaint HPI - HPI Summary HPI Summary: has a sinus clogged and for the past few days has has right ear pain - History of Current Complaint Chief Complaint: UCRespiratory Stated Complaint: EAR PAIN SINUS ISSUE Time Seen by Provider: 12/15/17 13:18 Hx Obtained From: Patient Onset/Duration: Gradual Onset Severity Initially: Mild Severity Currently: Mild Pain Intensity: 4 Pain Scale Used: 0-10 Numeric Aggravating Factors: Nothing Alleviating Factors: OTC Meds - Aleeve Associated Signs/Symptoms: Positive: Hearing Loss - Allergies/Home Medications Allergies/Adverse Reactions: Allergies Allergy/AdvReac Type Severity Reaction Status Date / Time metformin Allergy Diarrhea Verified 12/15/17 12:11 PMH/Surg Hx/FS Hx/Imm Hx Previously Healthy: No Endocrine History: Diabetes, Dyslipidemia Cardiovascular History: Hypertension - Surgical History Surgical History: None - Family History Known Family History: Positive: Hypertension, Diabetes Negative: Cardiac Disease - Social History Occupation: Employed Full-time Lives: With Family Alcohol Use: Occasionally Alcohol Amount: 4 drinks a month Substance Use Type: None Smoking Status (MU): Former Smoker - Immunization History Most Recent Influenza Vaccination: 07/2016 Most Recent Pneumonia Vaccination: 07/2017 Review of Systems Constitutional: Negative Skin: Negative Eyes: Negative ENT: Ear Ache - right Respiratory: Negative Cardiovascular: Negative Gastrointestinal: Negative Genitourinary: Negative Motor: Negative Neurovascular: Negative Musculoskeletal: Negative Neurological: Negative Psychological: Negative Is Patient Immunocompromised?: No All Other Systems Reviewed And Are Negative: Yes Physical Exam Triage Information Reviewed: Yes Appearance: Well-Appearing, No Pain Distress, Obese Vital Signs: Initial Vital Signs Temp 97.5 F 12/15/17 12:03 Pulse 105 12/15/17 12:03 Resp 17 12/15/17 12:03 BP 154/98 12/15/17 12:03 Pulse Ox 89 12/15/17 12:03 Vital Signs Reviewed: Yes Eye Exam: Normal Eyes: Positive: Conjunctiva Clear ENT Exam: Normal ENT: Positive: Normal ENT inspection, Hearing grossly normal, Pharynx normal, TMs normal - left, TM red - right, Uvula midline. Negative: Nasal congestion, Tonsillar swelling, Tonsillar exudate, Trismus, Hoarse voice, Dental tenderness , Sinus tenderness Dental Exam: Normal Neck exam: Normal Neck: Positive: Supple, Nontender, No Lymphadenopathy Respiratory Exam: Normal Respiratory: Positive: Chest non-tender, Lungs clear, Normal breath sounds, No respiratory distress, No accessory muscle use Cardiovascular Exam: Normal Cardiovascular: Positive: Pulses Normal, Brisk Capillary Refill, Tachycardia Musculoskeletal Exam: Normal Musculoskeletal: Positive: Strength Intact, ROM Intact, No Edema Neurological Exam: Normal Neurological: Positive: Alert, Muscle Tone Normal Psychological Exam: Normal Skin Exam: Normal Ear Complaint Course/Dx - Course Course Of Treatment: Augmentin Naproxen stop OTC EAR Drops follow BP with PCP - Differential Dx/Diagnosis Provider Diagnoses: Right otitis Media, Hypertension in poor control Discharge - Discharge Plan Condition: Stable Disposition: HOME Prescriptions: Amoxicillin/Clavulanate TAB* [Augmentin TAB 875*] 875 mg PO BID #20 tab Patient Education Materials: Ear Infection (ED), Hypertension (ED) Referrals: Ashley Christie MD [Primary Care Provider] - 1 Week
== END 2017-12-15 13:36 | disposition home or self-care (01) ==
LOC: UCEAST 11:25
DX: H66.91 Otitis media, unspecified, right ear (principal); I10 Essential (primary) hypertension; Z87.891 Personal history of nicotine dependence
CPT/HCPCS: 99212; G0463

== ENCOUNTER 2018-07-20 14:17 | Emergency (ER) | payer OTHER ==
--- NOTE | 2018-07-20 19:45 | ED ---
Shortness of Breath - HPI Summary HPI Summary: This pt is a 42 y/o male presenting [facility] referred by PCP for abnormal chest XR and SOB. Pt reports he saw his PCP yesterday to review his lab results he had drawn 1 week ago. He states he had this blood work done after a while because he didn't have insurance. He notes he also had a chest XR done yesterday which showed cardiomegaly and fluid around his heart. His PCP referred him to the ED to rule out CHF. Pt reports for the past 1 week he has had SOB mostly noticeable with exertion. He states he has pressure on bilateral sides. Denies chest pain, swelling in LE, cough that keeps him up at night, fever. Pt is on oxygen at home since he was diagnosed with pneumonia last year in Jul./ Aug. PMHx includes diabetes, HTN, pneumonia. Denies hx of PA, cardiac disease. Pt denies tobacco or alcohol use. He states he gets second hand smoke from his father, whom he lives with. He states he missed his afternoon medications today, including diabetes medications. - History of Current Complaint Chief Complaint: EDShortnessOfBreath Time Seen by Provider: 07/20/18 19:36 Hx Obtained From: Patient Onset/Duration: Lasting Days, Still Present Timing: Constant Current Severity: Moderate Dyspnea At: Exertion Aggrevating Factors: Movement Alleviating Factors: Nothing Associated Signs & Symptoms: Negative - Allergy/Home Medications Allergies/Adverse Reactions: Allergies Allergy/AdvReac Type Severity Reaction Status Date / Time metformin Allergy Diarrhea Verified 12/15/17 12:11 PMH/Surg Hx/FS Hx/Imm Hx Endocrine/Hematology History: Reports: Hx Diabetes - type 2 Denies: Hx Thyroid Disease Cardiovascular History: Reports: Hx Hypertension Denies: Hx Coronary Artery Disease Respiratory History: Reports: Hx Asthma - as a child Denies: Hx Chronic Obstructive Pulmonary Disease (COPD) GI History: Reports: Other GI Disorders - umbilical hernia Denies: Hx Ulcer Musculoskeletal History: Reports: Other Musculoskeletal History - right ankle fracture at 21yrs old Sensory History: Denies: Hx Contacts or Glasses, Hx Hearing Aid Opthamlomology History: Denies: Hx Contacts or Glasses Infectious Disease History: No Infectious Disease History: Denies: Hx Clostridium Difficile, Hx Hepatitis, Hx Human Immunodeficiency Virus (HIV), History Other Infectious Disease, Traveled Outside the [place] in Last 30 Days - Family History Known Family History: Positive: Hypertension - Father's side, Diabetes Negative: Cardiac Disease - Social History 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[employer] [facility] [employer] Alcohol Use: Occasionally Alcohol Amount: 4 drinks a month Substance Use Type: Reports: None Smoking Status (MU): Former Smoker Review of Systems Negative: Fever, Chills Negative: Chest Pain Positive: Shortness Of Breath Negative: Edema - in LE All Other Systems Reviewed And Are Negative: Yes Physical Exam - Summary Physical Exam Summary: Appearance: Well-appearing, Well-nourished, lying in bed comfortably Skin: Warm, dry, no obvious rash Eyes: sclera anicteric, no conjunctival pallor ENT: mucous membranes moist, pharynx appears normal Neck: Supple, nontender Respiratory: Clear to auscultation, no signs of respiratory distress Cardiovascular: Normal S1, S2. No murmurs. Normal distal pulses in tibial and radial bilaterally. Abdomen: Soft, nontender, normal active bowel sounds present Musculoskeletal: Normal, Strength/ROM Intact Neurological: A&Ox3, awake and alert, mentation is normal, speech is fluent and appropriate Psychiatric: affect is normal, does not appear anxious or depressed Triage Information Reviewed: Yes Vital Signs On Initial Exam: Initial Vitals Temp Pulse Resp BP Pulse Ox 98.1 F 101 20 153/94 87 07/20/18 14:42 07/20/18 14:42 07/20/18 14:42 07/20/18 14:42 07/20/18 14:42 Vital Signs Reviewed: Yes Diagnostics - Vital Signs Vital Signs Temp Pulse Resp BP Pulse Ox 07/20/18 19:25 98.5 F 94 20 157/101 07/20/18 16:58 96.6 F 87 24 137/81 94 07/20/18 14:42 98.1 F 101 20 153/94 87 - Laboratory Result Diagrams: 07/20/18 20:21 07/20/18 20:21 Lab Statement: Any lab studies that have been ordered have been reviewed, and results considered in the medical decision making process. - Radiology Chest XR Xray Interpretation: No Acute Changes - from yesterday's chest XR Radiology Interpretation Completed By: ED Physician Chest XR 07/19/18 Xray Interpretation: Positive (See Comments) - IMPRESSION: Elevated right hemidiaphragm with cardiomegaly and interstitial edema. Dr. Jackson has reviewed this report. Radiology Interpretation Completed By: Radiologist - EKG 19:45 Cardiac Rate: NL - at 88 bpm EKG Rhythm: Sinus Rhythm EKG Interpretation: No STEMI. Course/Dx - Course Course Of Treatment: This is a 42-year-old man with morbid obesity comes in with a month of exertional dyspnea. He had a chest x-ray done as an outpatient yesterday that was interpreted as showing some interstitial edema. He was asked to come to the ED because of concerns of developing congestive heart failure. However his BNP is normal, and his physical exam does not show any crackles or other evidence of decompensated congestive heart failure. I feel he can be worked up as an outpatient with echocardiogram and other testing is appropriate. Patient feels okay and is in agreement with plan. - Diagnoses Provider Diagnoses: Dyspnea, Morbid obesity Discharge - Sign-Out/Discharge Documenting (check all that apply): Patient Departure - Discharge - Discharge Plan Condition: Good Disposition: HOME Patient Education Materials: Dyspnea (ED) Referrals: Ashley Christie MD [Primary Care Provider] - - Attestation Statements Document Initiated by Scribe: Yes Documenting Scribe: Genevieve James Provider For Whom Scribe is Documenting (Include Credential): Amari Jackson MD Scribe Attestation: IGenevieve, scribed for Amari Jackson MD on 07/20/18 at [id number].
[2018-07-20 20:32] LABS: ABS Basophils 0.1 10^3/ul (0-0.2); ABS Eosinophils 0 10^3/ul (0-0.6); ABS Lymphocytes 1.5 10^3/ul (1.0-4.8); ABS Monocytes 0.6 10^3/ul (0-0.8); ABS Neutrophils 10.1 10^3/ul (1.5-7.7); ABS Nucleated RBC 0 10^3/ul; Eosinophil % 0.4 % (0-6); Hematocrit 50 % (42-52); Hemoglobin 16.2 g/dl (14.0-18.0); Lymphocyte % 12.1 % (25-47); Mean Corpuscular HGB Conc 33 g/dl (31-36); Mean Corpuscular Hemoglobin 28 pg (27-31); Mean Corpuscular Volume 87 fL (80-94); Mean Platelet Volume 8.4 um3 (7.4-10.4); Nucleated Red Blood Cells % 0.1; Platelet Count 205 10^3/ul (150-450); Red Blood Count 5.71 10^6/ul (4.00-5.40); Red Cell Distribution Width 16 % (10.5-15); White Blood Count 12.3 10^3/ul (3.5-10.8)
[2018-07-20 20:56] LABS: EGFR Non-African American 161.6 (>60)
[2018-07-20 23:10] VITALS: BP 133/79
--- NOTE | 2018-07-21 07:30 | RAD ---
INDICATION: Hypoxemia, possible congestive heart failure. COMPARISON: Comparison is made with prior study from July 19, 2018. TECHNIQUE: Dual-energy PA and lateral views of the chest were obtained. FINDINGS: The heart appears mildly enlarged and unchanged from the prior exam. The lungs are under inflated. There is mild atelectasis at the right lung base. There is mild prominence of the interstitial markings. No pleural effusion is seen. IMPRESSION: MILD INTERSTITIAL PROMINENCE POSSIBLY INDICATING EARLY CONGESTIVE HEART FAILURE. R1
--- NOTE | 2018-07-21 18:43 | ED ---
Progress - Progress Note Progress Note: Patient's final chest x-ray read from 07/20 reveals "mild interstitial prominence possibly indicating early congestive heart failure". This chest x- ray was compared to x-ray on 91 however does not specifically indicate if the x -ray has improved, worsened or is unchanged. Dr. Jackson saw the pt and report: "Course Of Treatment: This is a 42-year-old man with morbid obesity comes in with a month of exertional dyspnea. He had a chest x-ray done as an outpatient yesterday that was interpreted as showing some interstitial edema. He was asked to come to the ED because of concerns of developing congestive heart failure. However his BNP is normal, and his physical exam does not show any crackles or other evidence of decompensated congestive heart failure. I feel he can be worked up as an outpatient with echocardiogram and other testing is appropriate. Patient feels okay and is in agreement with plan." No further action at this time. Course/Dx - Course Course Of Treatment: This is a 42-year-old man with morbid obesity comes in with a month of exertional dyspnea. He had a chest x-ray done as an outpatient yesterday that was interpreted as showing some interstitial edema. He was asked to come to the ED because of concerns of developing congestive heart failure. However his BNP is normal, and his physical exam does not show any crackles or other evidence of decompensated congestive heart failure. I feel he can be worked up as an outpatient with echocardiogram and other testing is appropriate. Patient feels okay and is in agreement with plan. - Diagnoses Provider Diagnoses: Dyspnea, Morbid obesity Discharge - Sign-Out/Discharge Documenting (check all that apply): Post-Discharge Follow Up - Discharge Plan Condition: Good Disposition: HOME Patient Education Materials: Dyspnea (ED) Referrals: Ashley Christie MD [Primary Care Provider] - - Billing Disposition and Condition Condition: GOOD Disposition: Home
== END 2018-07-20 23:10 | disposition home or self-care (01) ==
LOC: ED 14:17
DX: R06.00 Dyspnea, unspecified (principal); E66.01 Morbid (severe) obesity due to excess calories
CPT/HCPCS: 36415; 71046; 80053; 83605; 83880; 84484; 85025; 85379; 93005; 99282

== ENCOUNTER 2019-08-25 18:54 | Inpatient (IN) | payer OTHER ==
[2019-08-25] MEDS ORDERED: Magnesium Sulfate 2 GM IV* 2 GM/50 ML BAG IVPB ONE (18:57)
[2019-08-25] MEDS ORDERED: Amiodarone IV VIAL** 50 MG/ML 3 ML (150 MG) VIAL ONE (18:58)
[2019-08-25] MEDS ORDERED: Amiodarone 150 MG IVPREMIX* 0 MG/0 ML BAG IV ONE (18:58)
[2019-08-25] MEDS ORDERED: Benzoin Compound STICK ONE (18:59)
--- NOTE | 2019-08-25 19:18 | ED ---
HPI Cardiac - HPI Summary HPI Summary: Time of arrival: 1851. The patient is a 43 y/o M arriving by ambulance to [facility] with a chief complaint of v-tach tonight (per EMS) after feeling faint and weak with diaphoresis. He reports he had been out for a walk when he suddenly felt unwell, so he sat down, and his family called EMS. When EMS arrived, they found the patient to be in v-tach without a palpable blood pressure or distal pulses, although he had a carotid pulse. In the ambulance, he was administered 300mL nml saline and 150mg amiodarone and was responsive and mentally stable. In the ED, he was administered 150mg amiodarone at 1855, 2gm magnesium at 1857, and 200mg lidocaine at 1900, with improvement in HR. He also notes that the nausea he was experiencing resolved with the lidocaine. He denies any chest pain. He has a history of afib, HTN, and DM, which are controlled with medications. Patient states he missed his dose of metoprolol today.PMHx: DM, HTN, afib, asthma. Former smoker, occasional EtOH, no substance use. Medications reviewed. Allergies noted. - History of Current Complaint Chief Complaint: EDDysrhythmPalp Stated Complaint: "CHEST PAIN PER EMS" Time Seen by Provider: 08/25/19 19:05 Hx Obtained From: Patient, EMS Onset/Duration: Started Minutes Ago, Still Present Timing: Lasting Minutes Initial Severity: Moderate Current Severity: Mild Pain Intensity: 0 Pain Scale Used: 0-10 Numeric Character: Irregular - heart rate Aggravating Factor(s): Exertion Alleviating Factor(s): Medication - in the ED (amiodarone, mag, lido) Associated Signs and Symptoms: Positive: Weakness - "faint" sensation, Diaphoresis, Nausea. Negative: Chest Pain - Additional Pertinent History Primary Care Physician: [id number] - Allergy/Home Medications Allergies/Adverse Reactions: Allergies Allergy/AdvReac Type Severity Reaction Status Date / Time metformin Allergy Diarrhea Verified 07/25/18 15:04 Home Medications: Home Medications Albuterol Sulfate [Ventolin Hfa] 1 puff INH Q4H PRN 08/25/19 [History Confirmed 08/25/19] Albuterol Sulfate [Ventolin Hfa] 1 puff INH Q4H PRN 08/25/19 [History Confirmed 08/25/19] Ertugliflozin Pidolate [Steglatro] 1 tab PO DAILY 08/25/19 [History Confirmed ] Furosemide TAB* [Lasix TAB*] 1 tab PO DAILY 08/25/19 [History Confirmed 08/25/19 ] Glimepiride (NF) 4 mg PO BID 08/25/19 [History Confirmed 08/25/19] Insulin Glargine,Hum.rec.anlog [Lantus Solostar 5x3 ML PENS] 75 units SUBCUT DAILY 08/25/19 [History Confirmed 08/25/19] Lisinopril TAB* [Prinivil TAB 10 MG*] 20 mg PO DAILY 08/25/19 [History Confirmed 08/25/19] Metoprolol Succinate XL TAB* [Toprol XL TAB*] 50 mg PO DAILY 08/25/19 [History Confirmed 08/25/19] Spironolactone [Aldactone 25 MG-] 25 mg PO DAILY 08/25/19 [History Confirmed ] Warfarin Sodium 3 tab PO SEE INSTRUCTIONS 08/25/19 [History Confirmed 08/25/19] PMH/Surg Hx/FS Hx/Imm Hx Endocrine/Hematology History: Reports: Hx Diabetes - type 2 Denies: Hx Thyroid Disease Cardiovascular History: Reports: Hx Atrial Fibrillation, Hx Hypertension Denies: Hx Coronary Artery Disease Respiratory History: Reports: Hx Asthma - as a child Denies: Hx Chronic Obstructive Pulmonary Disease (COPD) GI History: Reports: Other GI Disorders - umbilical hernia Denies: Hx Ulcer Musculoskeletal History: Reports: Other Musculoskeletal History - right ankle fracture at 21yrs old Sensory History: Denies: Hx Contacts or Glasses, Hx Hearing Aid Opthamlomology History: Denies: Hx Contacts or Glasses - Surgical History Surgical History: None Surgery Procedure, Year, and Place: none Infectious Disease History: No Infectious Disease History: Denies: Hx Clostridium Difficile, Hx Hepatitis, Hx Human Immunodeficiency Virus (HIV), History Other Infectious Disease, Traveled Outside the [place] in Last 30 Days - Family History Known Family History: Positive: Hypertension - Father's side, Diabetes Negative: Cardiac Disease - Social History Alcohol Use: Occasionally Alcohol Amount: 4 drinks a month Hx Substance Use: No Substance Use Type: Reports: None Hx Tobacco Use: Yes Smoking Status (MU): Former Smoker Review of Systems Positive: Skin Diaphoresis Positive: Other - irregular heart rate. Negative: Chest Pain Positive: Nausea Positive: Weakness - "faint" All Other Systems Reviewed And Are Negative: Yes Physical Exam - Summary Physical Exam Summary: Constitutional: Well-developed, Obese, Alert. (+) Mild distress Skin: Warm, Dry HENT: Normocephalic; Atraumatic Eyes: Conjunctiva normal Neck: Musculoskeletal ROM normal neck. (-) JVD, (-) Stridor, (-) Nuchal rigidity Cardio: Tachycardia, Heart sounds normal; No palpable distal pulses or radial pulses, Palpable cartoid pulses (-) Murmur Pulmonary/Chest wall: Effort normal. (-) Respiratory distress, (-) Wheezes, (-) Rales Abd: Soft, (-) tenderness, (-) Distension, (-) Guarding, (-) Rebound Musculoskeletal: (-) Edema Lymph: (-) Cervical adenopathy Neuro: Alert, Oriented x3 Psych: Anxious Triage Information Reviewed: Yes Vital Signs On Initial Exam: Initial Vitals Temp Pulse Resp BP Pulse Ox 97.7 F 295 18 0/0 98 08/25/19 18:54 08/25/19 18:54 08/25/19 18:54 08/25/19 18:54 08/25/19 18:54 Vital Signs Reviewed: Yes Procedures - Sedation Patient Received Moderate/Deep Sedation with Procedure: No Diagnostics - Vital Signs Vital Signs Temp Pulse Resp BP Pulse Ox 08/25/19 18:54 97.7 F 295 18 0/0 98 - Laboratory Result Diagrams: 08/25/19 19:28 08/25/19 19:27 Lab Statement: Any lab studies that have been ordered have been reviewed, and results considered in the medical decision making process. - Radiology cxr Radiology Interpretation Completed By: ED Physician Summary of Radiographic Findings: no acute process ED physician has reviewed this imaging report pending official read - EKG 1858 Cardiac Rate: Other Rate - 135 BPM EKG Rhythm: Atrial Fibrillation Summary of EKG Findings: An EKG at 1858 reveals atrial fibrillation at 135 BPM. ED physician has reviewed and interpreted this EKG. Re-Evaluation - Re-Evaluation First Eval Re-Evaluation Time: 19:16 Change: Unchanged Comment: Patient's BP is 88/53 mmHg, given IVF will monitor. Second Eval Re-Evaluation Time: 20:00 Change: Improved Comment: Patient's symptoms have resolved, he's feeling better admit to medicine Disposition - Course Course Of Treatment: 43-year-old male with a history of A. fib on warfarin and metoprolol who presents with ventricular tachycardia. Patient status post 150 mg amiodarone with no change in arrhythmia, given 150 mg amiodarone here still remains in ventricular tachycardia. Mentating well, therefore given 100 mg of IV lidocaine at which point patient converted to atrial flutter ablation. Patient denies chest pain at this time. We'll check labs including troponin, electrolytes. Patient was given 2 g of magnesium. We'll plan for admission to telemetry - Diagnoses Provider Diagnoses: Ventricular tachycardia - Physician Notifications Discussed Care Of Patient With: Darci Thomas - hospitalist Time Discussed With Above Provider: 20:00 Instructed by Provider To: Other - I discussed the patient's case with Dr. Thomas , who accepts the patient for admission. - Critical Care Time Critical Care Time: 30-74 min - Upon my evaluation, this patient had a high probability of imminent or life-threatening deterioration due to tachyarrhythmia which required my direct attention, intervention, and personal management. I have personally provided 30 minutes of critical care time exclusive of time spent on separately billable procedures. Time includes review of laboratory data, radiology results, discussion with consultants, and monitoring for potential decompensation. Interventions were performed as documented above. Discharge ED - Sign-Out/Discharge Documenting (check all that apply): Patient Departure - Patient accepted for admission by Dr. Thomas. - Discharge Plan Condition: Stable Disposition: ADMITTED TO [facility] Referrals: Ashley Christie MD [Primary Care Provider] - - Billing Disposition and Condition Condition: STABLE Disposition: Admitted to [facility] - Attestation Statements Document Initiated by Arturo: Yes Documenting Scribe: Ijeoma Perez Provider For Whom Arturo is Documenting (Include Credential): MD Kendall Mcgrawibbaljit Attestation: Ijeoma Bullard, scribed for Dr. Saad Fritz MD on 08/25/19 at 2057. Scribe Documentation Reviewed: Yes Provider Attestation: The documentation as recorded by the Ijeoma thorne accurately reflects the service I personally performed and the decisions made by me, Dr. Saad Fritz MD Status of Scribe Document: Viewed
[2019-08-25 19:34] LABS: ABS Lymphocytes 1.4 10^3/ul (1.0-4.8); ABS Monocytes 1.1 10^3/ul (0-0.8); ABS Neutrophils 16.7 10^3/ul (1.5-7.7); Eosinophil % 0.1 %; Hematocrit 44 % (42-52); Hemoglobin 14.1 g/dL (14.0-18.0); Lymphocyte % 7.2 %; Mean Corpuscular HGB Conc 32 g/dL (31-36); Mean Corpuscular Hemoglobin 27 pg (27-31); Mean Corpuscular Volume 84 fL (80-94); Mean Platelet Volume 9.1 fL (7.4-10.4); Platelet Count 235 10^3/uL (150-450); Red Blood Count 5.21 10^6 /uL (4.18-5.48); Red Cell Distribution Width 16 % (10-15); White Blood Count 19.3 10^3/uL (3.5-10.8)
[2019-08-25] MEDS ORDERED: NS 0.9% 1000 ML** 1,000 ML IV.FLUID IV ONE (19:35)
[2019-08-25] MEDS ORDERED: Lidocaine 2% (CARDIAC)* 20 MG/ML 5 ML SYRINGE (100 MG) INJ ONE (19:35)
[2019-08-25] MEDS ORDERED: Amiodarone IV VIAL** 50 MG/ML 3 ML (150 MG) VIAL IV PUSH ONE (19:35)
[2019-08-25 19:43] LABS: INR 4.63 (0.82-1.09)
[2019-08-25 19:52] LABS: Albumin 3.6 g/dL (3.2-5.2); Albumin/Globulin Ratio 1.3 (1-3); Calcium 8.6 mg/dL (8.6-10.3); EGFR African American 92.2 (>60); EGFR Non-African American 76.2 (>60); Globulin 2.8 g/dL (2-4); Magnesium 2.5 mg/dL (1.9-2.7); Potassium 3.9 mmol/L (3.5-5.0); Total Bilirubin 0.5 mg/dL (0.2-1.0); Total Protein 6.4 g/dL (6.4-8.9)
--- OUTSIDE RECORDS SUMMARY | 2019-08-25 20:02 | XMS REPORT | Summary of Care ---
:1975 Author Organization [facility] Address [address] [place] [address] Care Team Providers Name Role Phone Ashley Christie MD Primary Care Provider Reason for Visit Reason Comments Check Up follow on diabetes Encounter Details Date Type Department Care Team Description 06/29/2019 Office Visit [facility] Shahnaz, Mixed hyperlipidemia ( Primary Dx); Practice Ashley Messina MD Type 2 diabetes mellitus with diabetic polyneuropathy, with long-term current use of insulin (HCC); [address] Edema of both legs; [place] [address] [place] [address] Benign hypertension; [phone] KYM on CPAP; Paroxysmal atrial fibrillation ([facility]); BMI 50.0-59.9, adult ([facility]) Allergies Active Allergy Reactions Severity Noted Date Comments Metformin GI Reaction 08/16/2016 documented as of this encounter (statuses as of 06/29/2019) Medications Medication Sig Dispensed Refills Start End Date Status Date clotrimazole 1 Appl by 15 g 0 Active (LOTRIMIN) 1 % Topical route 7 Apply externally TWICE DAILY. CreamIndications: Tinea pedis of right foot atorvastatin Take 1 Tab by 30 Tab 5 Active (LIPITOR) 10 MG mouth DAILY. 7 Oral TabIndications: Mixed hyperlipidemia albuterol 3 mL by 125 Ampule 3 Active (ACCUNEB) 1.25 Inhalation-SVN 7 MG/3ML Inhalation route EVERY FOUR Nebu HOURS NEEDED SolnIndications: (wheezing, Hypoxia, Pneumonia shortness of due to infectious breath). organism, unspecified laterality, unspecified part of lung albuterol HFA Take 2 Puffs by 1 Inhaler 5 Active (VENTOLIN) 108 (90 inhalation EVERY 8 Base) MCG/ACT FOUR HOURS Inhalation Aero NEEDED SolnIndications: (wheezing). Pneumonia due to infectious organism, unspecified laterality, unspecified part of lung gabapentin Take 1 Cap by 30 Cap Active (NEURONTIN) 300 MG mouth EVERY 8 Oral BEDTIME. CapIndications: Type 2 diabetes mellitus with diabetic polyneuropathy, with long-term current use of insulin (HCC) fluticasone-salmet Take 1 INHL by 1 Inhaler Active magui diskus inhalation TWICE 8 (ADVAIR DISKUS) DAILY. Rinse 250-50 MCG/DOSE your mouth after Inhalation AEROSOL to prevent POWDER, BREATH thrush ACTIVATEDIndicatio ns: Hypoxia Blood Glucose 1 Each by Does 1 Device 0 Active Monitor Software not apply route 8 Does not apply DIRECTED. DeviceIndications: uncontrolled Type 2 diabetes non-insulin mellitus with dependent diabetic diabetes. Brand: polyneuropathy, insurance with long-term preferred current use of insulin (HCC) Lancets Does not by Does not 100 Each Active apply apply route 8 MiscIndications: DIRECTED. Type 2 diabetes Insulin mellitus with dependent diabetic diabetes. Brand: polyneuropathy, insurance with long-term preferred, E11.9 current use of insulin ([facility]) Glucose Blood In 100 Strips by In 100 Strip 0 Active Vitro Vitro route 8 StripIndications: DAILY. Type 2 diabetes uncontrolled mellitus with non-insulin diabetic dependent polyneuropathy, diabetes; One with long-term Touch Verio current use of please if insulin (HCC) covered. VENTOLIN HFA 108 INHALE TWO PUFFS 18 g Active (90 Base) MCG/ACT BY MOUTH EVERY 4 9 Inhalation Aero HOURS NEEDED SolnIndications: ( WHEEZING) Pneumonia due to infectious organism, unspecified laterality, unspecified part of lung potassium chloride Take 1 Tab by 30 Tab 1 Active (K-DUR) 10 MEQ mouth DAILY. 9 Oral Tab CRIndications: Edema of both legs metoprolol Take 1 Tab by 90 Tab 3 Active succinate (TOPROL mouth DAILY. 9 XL) 50 MG Oral TABLET SR 24 HRIndications: Atrial fibrillation, unspecified type (HCC) warfarin Take 2-3 Tabs by 60 Tab 2 Active (COUMADIN) 5 MG mouth DAILY. As 9 Oral directed TabIndications: Atrial fibrillation, unspecified type ([facility]) amLodipine TAKE ONE TABLET 30 Tab 5 Active (NORVASC) 10 MG BY MOUTH EVERY 9 Oral DAY TabIndications: Benign hypertension Insulin Pen Needle 1 Device by 100 Each 5 Active (NOVOFINE) 32G X 6 Injection route 9 MM Does not apply DAILY. MiscIndications: Type 2 diabetes mellitus with diabetic polyneuropathy, without long-term current use of insulin ([facility]) Ertugliflozin Take 15 mg by 30 Tab 5 Active L-PyroglutamicAc mouth DAILY. New 9 (STEGLATRO) 15 MG higher dose Oral TabIndications: Type 2 diabetes mellitus with diabetic polyneuropathy, with long-term current use of insulin ([facility]) Insulin Glargine Inject 65-75 10 Device 11 Active (BASAGLAR KWIKPEN) Units beneath 9 100 UNIT/ML the skin DAILY. Subcutaneous Solution Pen-injectorIndica tions: Type 2 diabetes mellitus with diabetic polyneuropathy, with long-term current use of insulin ([facility]) glimepiride Take 1 Tab by 60 Tab 5 Active (AMARYL) 4 MG Oral mouth TWICE 9 TabIndications: DAILY. Type 2 diabetes mellitus with diabetic polyneuropathy, with long-term current use of insulin ([facility]) furosemide (LASIX) Take 1 Tab by 30 Tab 5 Active 40 MG Oral mouth DAILY. 9 TabIndications: Edema of both legs lisinopril Take 1.5 Tabs by 45 Tab 5 Active (PRINIVIL, mouth DAILY. 9 ZESTRIL) 10 MG Oral TabIndications: Benign hypertension glimepiride TAKE ONE TABLET 60 Tab 3 06/29/20 Discontinued (AMARYL) 4 MG Oral BY MOUTH TWICE A 9 19 (Reorder) TabIndications: DAY Type 2 diabetes mellitus with diabetic polyneuropathy, with long-term current use of insulin ([facility]) Insulin Glargine Inject 65,070 5 Device 11 06/29/20 Discontinued (BASAGLAR KWIKPEN) Units beneath 9 19 (Dose 100 UNIT/ML the skin DAILY. Adjustment) Subcutaneous Solution Pen-injectorIndica tions: Type 2 diabetes mellitus with diabetic polyneuropathy, with long-term current use of insulin (HCC) Ertugliflozin Take 5 mg by 30 Tab 3 06/29/20 Discontinued L-PyroglutamicAc mouth EVERY 9 19 (STEGLATRO) 5 MG MORNING. Oral TabIndications: Type 2 diabetes mellitus with diabetic polyneuropathy, with long-term current use of insulin (HCC) furosemide (LASIX) Take 1 Tab by 30 Tab 1 06/29/20 Discontinued 40 MG Oral mouth DAILY. 9 19 (Reorder) TabIndications: Edema of both legs lisinopril Take 1 Tab by 45 Tab 5 06/29/20 Discontinued (PRINIVIL, mouth DAILY. 9 19 (Dose ZESTRIL) 10 MG Adjustment) Oral TabIndications: Benign hypertension documented as of this encounter (statuses as of 06/29/2019) Active Problems Problem Noted Date Abnormal cardiovascular function study 06/14/2019 Overview: Added automatically from request for surgery [id number] Atrial fibrillation 06/06/2019 Atrial fibrillation, unspecified type 06/06/2019 BMI 50.0-59.9, adult 08/16/2016 Benign hypertension 08/16/2016 Type 2 diabetes mellitus with diabetic polyneuropathy, with long-term 2015 current use of insulin documented as of this encounter (statuses as of 06/29/2019) Immunizations Name Administration Dates Next Due Influenza (IM) Preservative Free 08/31/2016 Influenza Vaccine Split 09/08/2017 PNEUMOCOCCAL POLYSACCHARIDE VACCINE 11/02/2016 TDAP Vaccine 06/17/2016 documented as of this encounter Social History Tobacco Use Types Packs/Day Years Used Date Passive Smoke Exposure - Never Smoker 0.3 4 Quit: 1999 Smokeless Tobacco: Never Used Alcohol Use Drinks/Week oz/Week Comments Never Alcohol Habits Answer Date Recorded How often do you have a drink containing alcohol? Never 04/02/2019 How many drinks containing alcohol do you have on a typical Not asked day when you are drinking? How often do you have six or more drinks on one occasion? Not asked Sex Assigned at Date Recorded Not on file Job Start Date Occupation Industry Not on file Not on file Not on file Travel History Travel Start Travel End No recent travel history available. documented as of this encounter Last Filed Vital Signs Vital Sign Reading Time Taken Comments Blood Pressure 140/88 06/29/2019 6:58 AM EDT Pulse 84 06/29/2019 6:58 AM EDT Temperature - - Respiratory Rate - - Oxygen Saturation 86% 06/29/2019 6:58 AM EDT Inhaled Oxygen Concentration - - Weight 202.3 kg (446 lb) 06/29/2019 6:58 AM EDT Height 195.6 cm (6' 5") 06/29/2019 6:58 AM EDT Body Mass Index 52.89 06/29/2019 6:58 AM EDT documented in this encounter Patient Instructions Patient InstructionsAshley Christie MD - 06/29/2019 7:20 AM EDTIncrease your Steglatro to 10 mg (two 5 mg tabs) until out, then go up to 15 mg tabs. The new prescription is for the 15 mg tabs. Your BP has been too high: Increase lisinopril to 15 mg nightly (1.5 tabs). I sent refills in for you. Please get your diabetic eye exam done. Please do fasting laboratory tests in 2 months and see me a week later. Keep up the good work working on diet. Use your oxygen, your level is low today. documented in this encounter Progress Notes Ashley Christie MD - 06/29/2019 7:20 AM EDT Nursing Notes: Fatoumata Art LPN 06/29/2019 7:13 AM Signed Chief Complaint Patient presents with Check Up follow on diabetes SUBJECTIVE: Jitendra Ann is an 43-y.o. male who presents for evaluation and treatment of Type 2 diabetes mellitus, hypoxia. He has not yet taken his BP medications, usually takes in am around 9-10 am. BP is up a bit today.However it has been up his last few [facility]. Family history: positive for diabetes in the patients Uncle. Previous treatment modalities employed include diet, oral agents and insulin injections. Current treatment includes diet, oral agents and insulin injections. He is not taking Trulicity: insurance denied it. I tried to order this again last visit and it was denied again. I increased him to 65-70 units of Insulin Gargline. He is also on Glimepiride 4 mg bid. He did not tolerate metformin in the past. Plan last visit: Stop HCTZ and start furosemide 40 mg daily. If potassium goes down on repeat testing I will then have him start potassium. Since last visit he saw Tanmay Esparza MD and was diagnosed with atrial fibrillation. He is now on warfarin. Due to his weight he felt a NOAC would not work, but may in the future after weight loss. He started metoprolol XL 50 mg dc and decreased lisinopril to 10 mg daily. He ordered an echocardiogram and nuclear stress test, which showed showed a perfusion defect that may represent artifact. He ordered a cardiac cath. He had a cardiac catheterization at [facility] yesterday: No obstructive atherosclerotic heart disease; Dr Chaves. He had his sleep study, has KYM. He has now gotten his machine. He is using it nightly after struggling to adjust to it. He gets oxygen from [facility] so it was ordered there. He lost his job due to inability to keep up, back pain. When cooking he becomes very short of breath, cannot keep up. Back bothers him also. He finds it hard to breath in a hot kitchen, with the heat. He has been more short of breath. He has applied for disability. He has a disability exam in [place] coming up. He has an AC at home and a fan. Bariatrics: He is seeing nutrition for bariatrics. He is dieting: Smaller portions, no soda, avoids starches His weight loss goal to have bariatric surgery is 435 lb. He has seen the psychologist. He has had his UGI and abdominal ultrasound. Dr Ortiz plans a sleeve gastrectomy. Current monitoring regimen: home blood tests - twice a day Home blood sugar records: 150-200. occ 130, max 215, averagee 180 Last HgbA1c: 03/22/19: 9.5 At [facility] Lab Results Component Value Date GLYCO 9.1 (H) 06/06/2019 GLYCO 10.2 (H) 01/15/2019 GLYCO 11.0 (H) 10/26/2018 Last eye exam: Never, reminded. Last microalbumin: 04/02/19 Last microfilament foot exam: 07/09/2018 and today LDL: Lab Results Component Value Date CHOL 199 10/26/2018 TRIG 135 10/26/2018 HDL 38 (L) 10/26/2018 LDL 134 (H) 10/26/2018 LDLHDLRATIO 3.5 10/26/2018 CHOLHDLRATIO 5.2 10/26/2018 Lab Results Component Value Date NA 137 06/15/2019 K 4.4 06/15/2019 CL 100 06/15/2019 CO2 30 06/15/2019 GLUCOSE 144 (H) 06/15/2019 BUN 17 06/15/2019 CREATININE 0.6 (L) 06/15/2019 CALCIUM 8.9 06/15/2019 TP 6.9 05/10/2019 ALBUMIN 3.7 05/10/2019 AST 19 05/10/2019 ALT 22 05/10/2019 ALK 85 05/10/2019 TBILI 0.4 05/10/2019 EGFR >60 06/15/2019 Lab Results Component Value Date INR (POCT) 1.9 (A) 06/20/2019 INR (POCT) 1.7 (A) 06/18/2019 INR (POCT) 1.8 (A) 06/15/2019 Immunizations: Immunization History Administered Date(s) Administered Influenza (IM) Preservative Free 08/31/2016 Influenza Vaccine Split 09/08/2017 PNEUMOCOCCAL POLYSACCHARIDE VACCINE 11/02/2016 TDAP Vaccine 06/17/2016 Cardiovascular risk factors: diabetes mellitus, obesity and sedentary life style Outpatient Medications as of 06/29/2019 Medication Sig Dispense Refill albuterol (ACCUNEB) 1.25 MG/3ML Inhalation Nebu Soln 3 mL by Inhalation- SVN route EVERY FOURHOURS NEEDED (wheezing, shortness of breath). 125 Ampule 3 albuterol HFA (VENTOLIN) 108 (90 Base) MCG/ACT Inhalation Aero Soln Take 2 Puffs by inhalation EVERY FOUR HOURS NEEDED (wheezing). 1 Inhaler 5 amLodipine (NORVASC) 10 MG Oral Tab TAKE ONE TABLET BY MOUTH EVERY DAY 30 Tab 5 atorvastatin (LIPITOR) 10 MG Oral Tab Take 1 Tab by mouth DAILY. 30 Tab 5 Blood Glucose Monitor Software Does not apply Device 1 Each by Does not apply route DIRECTED. uncontrolled non-insulin dependent diabetes. Brand: insurance preferred 1 Device 0 clotrimazole (LOTRIMIN) 1 % Apply externally Cream 1 Appl by Topical route TWICE DAILY. 15 g 0 Ertugliflozin L-PyroglutamicAc (STEGLATRO) 5 MG Oral Tab Take 5 mg by mouth EVERY MORNING. 30Tab 3 fluticasone-salmeterol diskus (ADVAIR DISKUS) 250-50 MCG/DOSE Inhalation AEROSOL POWDER, BREATH ACTIVATED Take 1 INHL by inhalation TWICE DAILY. Rinse your mouth after to prevent thrush 1 Inhaler 5 furosemide (LASIX) 40 MG Oral Tab Take 1 Tab by mouth DAILY. 30 Tab 1 gabapentin (NEURONTIN) 300 MG Oral Cap Take 1 Cap by mouth EVERY BEDTIME. 30 Cap 5 glimepiride (AMARYL) 4 MG Oral Tab TAKE ONE TABLET BY MOUTH TWICE A DAY 60 Tab 3 Glucose Blood In Vitro Strip 100 Strips by In Vitro route DAILY. uncontrolled non-insulin dependent diabetes; One Touch Verio please if covered. 100 Strip 0 Insulin Glargine (BASAGLAR KWIKPEN) 100 UNIT/ML Subcutaneous Solution Pen -injector Inject 65,070 Units beneath the skin DAILY. 5 Device 11 Insulin Pen Needle (NOVOFINE) 32G X 6 MM Does not apply Misc 1 Device by Injection route DAILY. 100 Each 5 Lancets Does not apply Misc by Does not apply route DIRECTED. Insulin dependent diabetes. Brand: insurance preferred, E11.9 100 Each 5 lisinopril (PRINIVIL, ZESTRIL) 10 MG Oral Tab Take 1 Tab by mouth DAILY. 45 Tab 5 metoprolol succinate (TOPROL XL) 50 MG Oral TABLET SR 24 HR Take 1 Tab by mouth DAILY. 90 Tab3 potassium chloride (K-DUR) 10 MEQ Oral Tab CR Take 1 Tab by mouth DAILY. 30 Tab 1 VENTOLIN HFA 108 (90 Base) MCG/ACT Inhalation Aero Soln INHALE TWO PUFFS BY MOUTH EVERY 4 HOURS NEEDED ( WHEEZING) 18 g 5 warfarin (COUMADIN) 5 MG Oral Tab Take 2-3 Tabs by mouth DAILY. As directed 60 Tab 2 No current facility-administered medications on file as of 06/29/2019. Echocardiogram 06/13/19: FINAL IMPRESSION: Technically poor study despite use of Definity echo contrast. Patient is in atrial fibrillation at the time of examination. Mildly dilated LV with concentric LVH and mild left atrial enlargement. Low normal LV systolic function with estimated LVEF 50% +/-5%. Mild RA enlargement. Moderate RV enlargement with mildly reduced contractility. No hemodynamically significant valve disease is seen on very limited imaging. No pericardial effusion. No prior study is available for comparison. Thallium stress test 06/13/19: FINDINGS: 1. Nuclear stress test performed using intravenous Gloria scan. 2. The patient had no chest discomfort. 3. Resting blood pressure was 104/79. Blood pressures were unremarkable except for one at about 4 minutes into recovery that was written as 54/39. This is undoubtedly incorrect as the one before it was a systolic blood pressure of 114 and the one after it was a systolic blood pressure of 104. Heart rates were all tachycardic including a resting heart rate of 110. 4. Baseline electrocardiogram reveals atrial fibrillation. No significant electrocardiographic changes are seen during the study. 5. Nuclear images are pending and will appear separately. Cardiac Cath : No significant disease. Per his discharge summary Allergies Allergen Reactions Metformin GI Reaction Past Medical History: Diagnosis Date Asthma as a young child Atrial fibrillation (HCC) 06/06/2019 Diabetes mellitus (HCC) dx age 37, type 2 Essential (primary) hypertension Past Surgical History: Procedure Laterality Date CATHETERIZATION HEART LEFT N/A 06/28/2019 Procedure: CATHETERIZATION HEART LEFT; Surgeon: Singh Chaves MD; Location: [facility] Family History Problem Relation Age of Onset Hypertension Father Stroke Father Kidney Disease Paternal Grandmother Hypertension Paternal Grandmother Hypertension Paternal Aunt Hypertension Paternal Uncle Diabetes Maternal Uncle Heart No family history Cancer No family history Social History Tobacco Use Smoking status: Passive Smoke Exposure - Never Smoker Smokeless tobacco: Never Used Substance Use Topics Alcohol use: Never Frequency: Never Review Of Systems Skin: negative for rash Eyes: negative for blurred vision or vision changes Ears/Nose/Throat: negative Respiratory: Denies shortness of breath or URI symptoms Cardiovascular: negative for chest pain or pressure, no orthopnea Gastrointestinal: negative for abdominal pain, difficulty swallowing Genitourinary: negative for dysuria or frequency Musculoskeletal: negative for edema, negative for ankle pain Neurologic: negative for dizziness, syncope Psychiatric: negative for depression Hematologic/Lymphatic/Immunologic: negative for unexpected weight loss Endocrine: negative for polydipsia, polyuria Cardiovascular ROS: no chest pain or dyspnea on exertion OBJECTIVE: BP 140/88 (BP Location: Right arm, Patient Position: Sitting) | Pulse 84 | Ht 6' 5" (1.956 m) | Wt (!) 446 lb (202.3 kg) | SpO2 (!) 86% | BMI 52.89 kg/m General appearance: alert, no distress, oriented times 3 Skin: Skin color, texture, turgor normal. No rashes or lesions. Eyes: conjunctivae/corneas clear. PERRL, EOM's grossly intact. Ears: negative findings: external ears normal to inspection and palpation Oropharynx: negative findings: lips normal without lesions Neck: Neck supple. No cervical or supraclavicular adenopathy. Thyroid symmetric , normal size. Carotids 4/4 without bruits. Lungs:. Lungs clear with good aeration. Chest symmetrical. Normal breath sounds bilaterally. Heart: Regular rate and rhythm. No murmurs, clicks or gallops. Abdomen: Abdomen soft, non-tender. BS normal. No masses, organomegaly or hernia. No bruits. Extremities: Extremities without deformities. He has trace to 1+ ankle edema, but also some tense edema of his lower abdominal wall. He has scars and mild skin discoloration bilateral Lower legs.. Station and gait normal. Peripheral pulses: dorsalis pedis=4/4, Neuro: Gait normal, strength grossly normal and symmetric. Left foot Diabetic foot exam: Visual exam: normal Sensory: Filament test: present Pulse: a pulse was present Right foot diabetic exam Visual exam: normal Sensory: Filament test: present Pulse: a pulse was present ASSESSMENT/PLAN: 1. Type 2 diabetes mellitus with diabetic polyneuropathy, with long-term current use of insulin (HCC) Not yet at goal, increase Steglatro. - Ertugliflozin L-PyroglutamicAc (STEGLATRO) 15 MG Oral Tab; Take 15 mg by mouth DAILY. New higher dose Dispense: 30 Tab; Refill: 5 - Insulin Glargine (BASAGLAR KWIKPEN) 100 UNIT/ML Subcutaneous Solution Pen- injector; Inject 65-75 Units beneath the skin DAILY. Dispense: 10 Device; Refill: 11 - glimepiride (AMARYL) 4 MG Oral Tab; Take 1 Tab by mouth TWICE DAILY. Dispense : 60 Tab; Refill: 5 - GLYCOHEMOGLOBIN A1C; Future - COMPREHENSIVE METABOLIC PANEL; Future - LIPID PROFILE; Future 2. Edema of both legs Improved, continue furosemide. Potassium remains normal so stay off potassium supplement for now. - furosemide (LASIX) 40 MG Oral Tab; Take 1 Tab by mouth DAILY. Dispense: 30 Tab; Refill: 5 3. Benign hypertension Up a bit: Increase lisinopril back to 15 mg daily. - lisinopril (PRINIVIL, ZESTRIL) 10 MG Oral Tab; Take 1.5 Tabs by mouth DAILY. Dispense: 45 Tab; Refill: 5 - COMPREHENSIVE METABOLIC PANEL; Future - LIPID PROFILE; Future 4. Mixed hyperlipidemia Check lipids next lab draw - LIPID PROFILE; Future 5. KYM on CPAP He is adjusting to cpap and now using it nightly 6. Paroxysmal atrial fibrillation (HCC) Now on warfarin and metoprolol and tolerating them well. He goes to anticoag clinic for INR checks. Cardiac cath was negative for sig obstruction 7. BMI 50.0-59.9, adult (HCC) He continues to work with bariatrics and will hopefully qualify for surgery soon. Rx: BA? Yes Statin? Yes Metformin? No, not tolerated Follow up 2 months, sooner prn. Patient Instructions Increase your Steglatro to 10 mg (two 5 mg tabs) until out, then go up to 15 mg tabs. The new prescription is for the 15 mg tabs. Your BP has been too high: Increase lisinopril to 15 mg nightly (1.5 tabs). I sent refills in for you. Please get your diabetic eye exam done. Please do fasting laboratory tests in 2 months and see me a week later. Keep up the good work working on diet. Use your oxygen, your level is low today. Author: Ashley Christie MD 06/29/2019 07:40 documented in this encounter Plan of Treatment Date Type Specialty Care Team Description 07/04/2019 AntiCoag Anticoagulation 07/04/2019 Office Visit Cardiology Tanmay Esparza MD [facility] [place] [address] 08/10/2019 Office Visit Family Practice Ashley Christie MD [facility] [place] [address] Name Type Priority Associated Diagnoses Order Schedule GLYCOHEMOGLOBIN A1C Lab Routine Type 2 diabetes mellitus Expected: with diabetic 08/31/2019 polyneuropathy, with (Approximate), long-term current use of Expires: 11/29/2019 insulin ([facility]) COMPREHENSIVE METABOLIC Lab Routine Type 2 diabetes mellitus Expected: PANEL with diabetic 08/31/2019 polyneuropathy, with (Approximate), long-term current use of Expires: 11/29/2019 insulin (HCC) Benign hypertension LIPID PROFILE Lab Routine Type 2 diabetes mellitus Expected: with diabetic 08/31/2019 polyneuropathy, with (Approximate), long-term current use of Expires: 11/29/2019 insulin (HCC) Benign hypertension Mixed hyperlipidemia Health Maintenance Due Date Last Done Comments Diabetic Eye Exam 1975 FOOT EXAM 07/19/2019 07/19/2018, 07/19/2018, 07/19/2018, Additional history exists HEMOGLOBIN A1C 09/06/2019 06/06/2019, 03/22/2019, 01/15/2019, Additional history exists LIPID DISORDER SCREENING 10/26/2019 10/26/2018, 07/31/2018, 03/02/2017, Additional history exists DEPRESSION SCREENING 10/30/2019 10/30/2018 PNEUMOCOCCAL 0-64 YRS Completed 11/02/2016 HPV IMMUNIZATION SERIES Aged Out No longer eligible based on patient's age to complete this topic MENINGOCOCCAL VACCINE IMM Aged Out No longer eligible based on patient's age to complete this topic documented as of this encounter Goals Goal Patient Goal Associated Recent Patient-Stated? Author Type Problems Progress Blood Pressure Blood 140/88 No Shahnaz, < 140/90 Pressure (06/29/2019 Ashley Messina, 6:58 AM EDTDaphney ARANDA Note: This is an individualized treatment (blood pressure) goal for Jitendra Ann: Displayed above (on the left) is your goal for blood pressure control. Your most recent blood pressure is also shown above, on the right. You should try to achieve blood pressures that are lower than your goal listed above (on the left). Glycohemoglobin A1c < 7.0 Diabetes 9.1 (06/06/2019 2:32 No Ashley Christie PM EDT) MD Mayuri Note: This is an individualized treatment (diabetes control, HgbA1C) goal for Jitendra Ann: Displayed above is your progress towards your HgbA1C goal. Your goal is shown above (on the left); your most recent HgbA1C is shown on the right. Note that lower numbers are better. Weight loss vs. 18 Lifestyle 12 (06/29/2019 6:58 AM No Ashley Christie mo max (lbs) >= 10 EDT) Note: This is an individualized lifestyle goal for Jitendra Ann: Your body mass index (BMI) is more than 30. You should lose weight. A reasonable starting goal is to lose 10 pounds. Displayed above is how many pounds you have lost thus far towards your 10 pound weight loss goal. Keep immunizations current Lifestyle No Ashley Christie MD Note: This is an individualized lifestyle goal for Jitendra Ann: Please be sure to keep up-to-date on recommended immunizations. For example, this would include a yearly influenza vaccine. Immunization status can be seen by looking at the Health Maintenance sections of your e[facility], Plan of Care, and any After Visit Summaries. Take all prescribed medications as Self-management No Ashley Christie MD directed Note: This is an individualized self-management goal for Jitendra Ann: Please take all prescribed medications as directed. 1. Do not skip doses. If you cannot afford your medications, talk with your doctor. 2. Use a pill reminder system such as a pill box if needed. Your pharmacist can help you with this. 3. Contact your Pharmacy 5 days before your medication runs out. If you cannot take your medications for any reasons, talk with your doctor. 4. Please bring all of your medication bottles and inhalers (or a list of all your medications/inhalers) with you to every visit. Potential barriers to meeting all of your care plan goals will continue to be addressed on an ongoing basis. documented as of this encounter Results Not on filedocumented in this encounter Visit Diagnoses Diagnosis Mixed hyperlipidemia - Primary Type 2 diabetes mellitus with diabetic polyneuropathy, with long-term current use of insulin (HCC) Edema of both legs Edema Benign hypertension Essential hypertension, benign KYM on CPAP Obstructive sleep apnea (adult) (pediatric) Paroxysmal atrial fibrillation (HCC) Atrial fibrillation BMI 50.0-59.9, adult (HCC) Body Mass Index 50.0-59.9, adult documented in this encounter documented as of this encounter Advance Directives Code Status Date Activated Date Inactivated Comments Full Code 06/28/2019 11:36 AM Does the patient have decision making capacity? Yes Order was discussed with: Patient I discussed all options and patient/surrogate requested and agreed to: Full Code
--- OUTSIDE RECORDS SUMMARY | 2019-08-25 20:02 | XMS REPORT | Summary of Care ---
:1975 Author Organization [facility] Address [address] [place] [address] Care Team Providers Name Role Phone Ashley Christie MD Primary Care Provider Reason for Visit Reason Comments Follow Up Pt. in for Follow up to recent Echo and Stress test done on 06/13/19. Cath done on 06/28/19 via Right Radial Artery. Medication Management Pt. reports PCP increased Lisinopril back to 1.5 tabs daily. Encounter Details Date Type Department Care Team Description 07/04/2019 Office Visit Stephanie Esparza, Persistent atrial fibrillation (HCC) (Primary Dx); Cardiology MD Tanmay ASHD (arteriosclerotic heart disease); [address] [facility] Essential hypertension; [place] [address] [place] [address] Benign hypertension; [phone] Chronic diastolic congestive heart failure (HCC) Allergies Active Allergy Reactions Severity Noted Date Comments Metformin GI Reaction 08/16/2016 documented as of this encounter (statuses as of 07/04/2019) Medications Medication Sig Dispensed Refills Start End [...] polyneuropathy, with long-term current use of insulin ([facility]) fluticasone-salmet Take 1 INHL by 1 Inhaler 5 Active magui diskus inhalation TWICE 8 (ADVAIR [...] with long-term preferred current use of insulin ([facility]) Lancets Does not by Does not 100 Each Active apply apply route 8 MiscIndications: DIRECTED. Type 2 diabetes Insulin mellitus with dependent diabetic diabetes. Brand: polyneuropathy, insurance with long-term preferred, E11.9 current use of insulin ([facility]) Glucose Blood In 100 Strips by In 100 Strip 0 Active Vitro Vitro route 8 StripIndications: DAILY. Type 2 diabetes uncontrolled mellitus with non-insulin diabetic dependent polyneuropathy, diabetes; One with long-term Touch Verio current use of please if insulin ([facility]) covered. VENTOLIN HFA 108 INHALE TWO PUFFS 18 g 5 Active (90 Base) MCG/ACT BY MOUTH EVERY 4 9 Inhalation Aero HOURS NEEDED SolnIndications: ( WHEEZING) Pneumonia due to infectious organism, unspecified laterality, unspecified part of lung metoprolol Take 1 Tab by 90 Tab 3 Active succinate (TOPROL mouth DAILY. 9 XL) 50 MG Oral TABLET SR 24 HRIndications: Atrial fibrillation, unspecified type (HCC) warfarin Take 2-3 Tabs by 60 Tab 2 Active (COUMADIN) 5 MG mouth DAILY. As 9 Oral directed TabIndications: Atrial fibrillation, unspecified type ([facility]) amLodipine TAKE ONE TABLET 30 Tab 5 Active (NORVASC) 10 MG BY MOUTH EVERY 9 Oral DAY TabIndications: Benign hypertension Insulin Pen Needle 1 Device by 100 Each 5 Active (NOVOFINE) 32G X 6 Injection route 9 MM Does not apply DAILY. MiscIndications: Type 2 diabetes mellitus with diabetic polyneuropathy, without long-term current use of insulin ([facility]) Ertugliflozin Take 15 mg by 30 Tab 5 Active L-PyroglutamicAc mouth DAILY. New 9 (STEGLATRO) 15 MG higher dose Oral TabIndications: Type 2 diabetes mellitus with diabetic polyneuropathy, with long-term current use of insulin ([facility]) Insulin Glargine Inject 65-75 10 Device 11 Active (BASAGLAR KWIKPEN) Units beneath 9 100 UNIT/ML the skin DAILY. Subcutaneous Solution Pen-injectorIndica tions: Type 2 diabetes mellitus with diabetic polyneuropathy, with long-term current use of insulin ([facility]) glimepiride Take 1 Tab by 60 Tab 5 Active (AMARYL) 4 MG Oral mouth TWICE 9 TabIndications: DAILY. Type 2 diabetes mellitus with diabetic polyneuropathy, with long-term current use of insulin ([facility]) furosemide (LASIX) Take 1 Tab by 30 Tab 5 Active 40 MG Oral mouth DAILY. 9 TabIndications: Edema of both legs lisinopril Take 1 Tab by 90 Tab 0 Active (PRINIVIL, mouth DAILY. 9 ZESTRIL) 10 MG Oral TabIndications: Benign hypertension spironolactone Take 1 Tab by 90 Tab 3 Active (ALDACTONE) 25 MG mouth DAILY. 9 Oral TabIndications: Chronic diastolic congestive heart failure ([facility]) potassium chloride Take 1 Tab by 30 Tab 1 07/04/20 Discontinued (K-DUR) 10 MEQ mouth DAILY. 9 19 (Provider Oral Tab Discontinued) CRIndications: Edema of both legs lisinopril Take 1.5 Tabs by 45 Tab 5 07/04/20 Discontinued (PRINIVIL, mouth DAILY. 9 19 (Dose ZESTRIL) 10 MG Adjustment) Oral TabIndications: Benign hypertension documented as of this encounter (statuses as of 07/04/2019) Active Problems Problem Noted Date Abnormal cardiovascular function study 06/14/2019 Overview: Added automatically from request for surgery [id number] Atrial fibrillation 06/06/2019 Atrial fibrillation, unspecified type 06/06/2019 BMI 50.0-59.9, adult 08/16/2016 Benign hypertension 08/16/2016 Type 2 diabetes mellitus with diabetic polyneuropathy, with long-term 2015 current use of insulin documented as of this encounter (statuses as of 07/04/2019) Immunizations Name Administration Dates Next Due Influenza [...] Sign Reading Time Taken Comments Blood Pressure 132/74 07/04/2019 10:18 AM EDT Pulse 72 07/04/2019 10:18 AM EDT Temperature - - Respiratory Rate - - Oxygen Saturation - - Inhaled Oxygen Concentration - - Weight 197.8 kg (436 lb) 07/04/2019 10:18 AM EDT Height 195.6 cm (6' 5") 07/04/2019 10:18 AM EDT Body Mass Index 51.7 07/04/2019 10:18 AM EDT documented in this encounter Patient Instructions Patient InstructionsTanmay Esparza MD - 07/04/2019 11:00 AM EDT Don't restart potassium supplements. DECREASE lisinopril back to 10mg (1 tab) once daily. START taking spironolactone 25mg once daily. Get your bloodwork checked ~1-2 weeks after starting spironolactone. No other medication changes today. Continue with the good job with weight loss and continue working on wearing your CPAP regularly. Follow up with me or Mary Gonzales in ~1 month to review your lab results and hopefully get you set up for a cardioversion. documented in this encounter Progress Notes Tanmay Esparza MD - 07/04/2019 11:00 AM EDT [facility] Note Patient: Jitendra Ann Date of : 1975 Date of Service: 07/04/2019 REFERRING PRACTITIONER: Tanmay Esparza PRIMARY CARE PROVIDER: Ashley Christie Chief Complaint: Chief Complaint Patient presents with Follow Up Pt. in for Follow up to recent Echo and Stress test done on 06/13/19. Cath done on 06/28/19 via Right Radial Artery. Medication Management Pt. reports PCP increased Lisinopril back to 1.5 tabs daily. History of Present Illness: We had the pleasure of seeing Jitendra Ann today at the [facility] Cardiology Office. He is a 43-y.o. male with morbid obesity, severe KYM, DM2, and HTN. He also has persistent atrial fibrillation. He had a false positive nuclear stress test 05/2019 with subsequent left heart cath showing minimal nonobstructive CAD. Mr. Ann returns to cardiology clinic today for close f/u after his recent cath. This fortunatelyshowed nonobstructive CAD and a mildly elevated LVEDP. Since his last visit with me, he reports that he's been feeling fairly well. He 's been able to lose another 10 pounds by our scales since the end of May. He continues to have some mild intermittent palpitations at times, but denies any lightheadedness or syncope. Breathing has been "OK" but he denies any CP/ pressure. He's been trying to use the CPAP regularly but has a hard time with it in the heat. LE edema hasn't been too bad. Patient Active Problem List Diagnosis BMI 50.0-59.9, adult ([facility]) Benign hypertension Type 2 diabetes mellitus with diabetic polyneuropathy, with long-term current use of insulin (HCC) Atrial fibrillation (HCC) Atrial fibrillation, unspecified type (HCC) Abnormal cardiovascular function study Past Medical History: Diagnosis Date Asthma as a young child Atrial fibrillation (HCC) 06/06/2019 Diabetes mellitus (HCC) dx age 37, type 2 Essential (primary) hypertension Past Surgical History: Procedure Laterality Date CATHETERIZATION HEART LEFT N/A 06/28/2019 Procedure: CATHETERIZATION HEART LEFT; Surgeon: Singh Chaves MD; Location: [facility] Allergies Allergen Reactions Metformin GI Reaction Current Outpatient Medications Medication Sig albuterol (ACCUNEB) 1.25 MG/3ML Inhalation Nebu Soln 3 mL by Inhalation- SVN route EVERY FOURHOURS NEEDED (wheezing, shortness of breath). albuterol HFA (VENTOLIN) 108 (90 Base) MCG/ACT Inhalation Aero Soln Take 2 Puffs by inhalation EVERY FOUR HOURS NEEDED (wheezing). amLodipine (NORVASC) 10 MG Oral Tab TAKE ONE TABLET BY MOUTH EVERY DAY atorvastatin (LIPITOR) 10 MG Oral Tab Take 1 Tab by mouth DAILY. Blood Glucose Monitor Software Does not apply Device 1 Each by Does not apply route DIRECTED. uncontrolled non-insulin dependent diabetes. Brand: insurance preferred clotrimazole (LOTRIMIN) 1 % Apply externally Cream 1 Appl by Topical route TWICE DAILY. Ertugliflozin L-PyroglutamicAc (STEGLATRO) 15 MG Oral Tab Take 15 mg by mouth DAILY. New higher dose fluticasone-salmeterol diskus (ADVAIR DISKUS) 250-50 MCG/DOSE Inhalation AEROSOL POWDER, BREATH ACTIVATED Take 1 INHL by inhalation TWICE DAILY. Rinse your mouth after to prevent thrush furosemide (LASIX) 40 MG Oral Tab Take 1 Tab by mouth DAILY. gabapentin (NEURONTIN) 300 MG Oral Cap Take 1 Cap by mouth EVERY BEDTIME. glimepiride (AMARYL) 4 MG Oral Tab Take 1 Tab by mouth TWICE DAILY. Glucose Blood In Vitro Strip 100 Strips by In Vitro route DAILY. uncontrolled non-insulin dependent diabetes; One Touch Verio please if covered. Insulin Glargine (BASAGLAR KWIKPEN) 100 UNIT/ML Subcutaneous Solution Pen -injector Inject 65-75 Units beneath the skin DAILY. Insulin Pen Needle (NOVOFINE) 32G X 6 MM Does not apply Misc 1 Device by Injection route DAILY. Lancets Does not apply Misc by Does not apply route DIRECTED. Insulin dependent diabetes. Brand: insurance preferred, E11.9 lisinopril (PRINIVIL, ZESTRIL) 10 MG Oral Tab Take 1 Tab by mouth DAILY. metoprolol succinate (TOPROL XL) 50 MG Oral TABLET SR 24 HR Take 1 Tab by mouth DAILY. spironolactone (ALDACTONE) 25 MG Oral Tab Take 1 Tab by mouth DAILY. VENTOLIN HFA 108 (90 Base) MCG/ACT Inhalation Aero Soln INHALE TWO PUFFS BY MOUTH EVERY 4 HOURS NEEDED ( WHEEZING) warfarin (COUMADIN) 5 MG Oral Tab Take 2-3 Tabs by mouth DAILY. As directed No current facility-administered medications for this visit. Family History Problem Relation Age of Onset Hypertension Father Stroke Father Kidney Disease Paternal Grandmother Hypertension Paternal Grandmother Hypertension Paternal Aunt Hypertension Paternal Uncle Diabetes Maternal Uncle Heart No family history Cancer No family history Social History Socioeconomic History Marital status: Single Spouse name: Not on file Number of children: Not on file Years of education: Not on file Highest education level: Not on file Occupational History Not on file Social Needs Financial resource strain: Not on file Food insecurity: Worry: Not on file Inability: Not on file Transportation needs: Medical: Not on file Non-medical: Not on file Tobacco Use Smoking status: Passive Smoke Exposure - Never Smoker Smokeless tobacco: Never Used Substance and Sexual Activity Alcohol use: Never Frequency: Never Drug use: No Sexual activity: Not Currently Partners: Female Lifestyle Physical activity: Days per week: Not on file Minutes per session: Not on file Stress: Not on file Relationships Social connections: Talks on phone: Not on file Gets together: Not on file Attends cheondoism service: Not on file Active member of club or organization: Not on file Attends meetings of clubs or organizations: Not on file Relationship status: Not on file Intimate partner violence: Fear of current or ex partner: Not on file Emotionally abused: Not on file Physically abused: Not on file Forced sexual activity: Not on file Other Topics Concern Back Care Not Asked Bike Helmet Not Asked Blood Transfusions Not Asked Caffeine Concern Not Asked Exercise No Hobby Hazards Not Asked International Travel Not Asked Service Not Asked Occupational Exposure Not Asked Seat Belt Not Asked Self-Exams Not Asked Sleep Concern Not Asked Special Diet Not Asked Stress Concern Not Asked Weight Concern Not Asked Social History Narrative Works in a Kitchen at [employer] His father lives with him Pet: dog Review of Systems - Negative except as noted in HPI. Physical Exam: Vitals: 07/04/19 1018 BP: 132/74 BP Location: Right arm Patient Position: Sitting Pulse: 72 Weight: (!) 436 lb (197.8 kg) Height: 6' 5" (1.956 m) Body mass index is 51.7 kg/m. General: Obese, alert 43-y.o. male in NAD HEENT: anicteric, MMM, no E/E OP, conj pink Neck: Unable to appreciate JVP d/t body habitus; no carotid bruits or LAD CV: Irreg irreg, normal s1/s2, no appreciable murmurs, rubs, or gallops Pulm: CTA bilaterally without wheezes, rhonchi, or rales. No increased work of breathing. Abd: soft, obese, NT, ND, +BS. No appreciable pulsatile masses or bruits. Ext: Trace bilateral lower extremity edema, no cyanosis, no cords, redness, or warmth, 2+ distal pulses. R radial cath site benign. Neuro: no gross focal deficits Skin: Mild venous stasis changes on LEs. Labs: Lab Results Component Value Date NA 137 06/15/2019 K 4.4 06/15/2019 CL 100 06/15/2019 CO2 30 06/15/2019 GLUCOSE 144 (H) 06/15/2019 BUN 17 06/15/2019 CREATININE 0.6 (L) 06/15/2019 CALCIUM 8.9 06/15/2019 TP 6.9 05/10/2019 ALBUMIN 3.7 05/10/2019 AST 19 05/10/2019 ALT 22 05/10/2019 ALK 85 05/10/2019 TBILI 0.4 05/10/2019 EGFR >60 06/15/2019 No results found for: BNP Lab Results Component Value Date CHOL 199 10/26/2018 TRIG 135 10/26/2018 HDL 38 (L) 10/26/2018 LDL 134 (H) 10/26/2018 LDLHDLRATIO 3.5 10/26/2018 CHOLHDLRATIO 5.2 10/26/2018 Cardiac Studies: Left Heart Cath 06/19/2019: Non-obstructive coronary artery disease High normal LV filling pressures TTE 06/13/2019: FINAL IMPRESSION: Technically poor study despite use [...] on very limited imaging. No pericardial effusion. Regadenoson SPECT 06/13/2019: IMPRESSION 1. Abnormal myocardial perfusion study 2. Negative EKG for ischemia by criteria. 3. No significant reversible perfusion defect suggestive of ischemia. 4. Apical fixed defect as described 3. Dilated left ventricle with moderately reduced systolic function with left ventricular ejection fraction of 39 % 4. There is no evidence of transient ischemic dilation. 5. Global hypokinesis with no regional wall motion abnormalities. 6. No coronary artery calcifications Assessment & Plan: Jitendra Ann is a 43-y.o. male with morbid obesity, severe KYM, DM2, and HTN. He also has persistent atrial fibrillation. He had a false positive nuclear stress test 05/2019 with subsequent left heart cath showing minimal nonobstructive CAD. ICD-9-CM ICD-10-CM 1. Persistent atrial fibrillation (HCC) 427.31 I48.1 2. ASHD (arteriosclerotic heart disease) 414.00 I25.10 3. Essential hypertension 401.9 I10 4. Benign hypertension 401.1 I10 lisinopril (PRINIVIL, ZESTRIL) 10 MG Oral Tab 5. Chronic diastolic congestive heart failure (HCC) 428.32 I50.32 spironolactone (ALDACTONE) 25 MG Oral Tab 428.0 BASIC METABOLIC PANEL 1. Persistent Atrial Fibrillation: The etiology of atrial fibrillation in this patient is most likely related to obesity, KYM, HTN, and DM. The heart-rate is currently well controlled on the current medical regimen. This patient's DVF9HC3 -Vasc score is 2. I recommend the following treatment strategy and medical regimen for this patient: Stroke prevention: Based on the patient's [id number] risk profile, I recommend continuing OACtherapy. Given his morbid obesity, we are using warfarin and his INR is not yet therapeutic (getting it checked again today). After his bariatric surgery, if he's been able to lose a sufficient amount of weight then we can consider changing him over to a NOAC. Rate control: Cont Toprol XL 50mg daily. Rhythm control: Given his young age and the fact that this is "new onset" Afib, I would like to do a trial of sinus rhythm to see if it helps to reduce his dyspnea. He'll have to be fully anticoagulated for at least a month before doing that. Further workup/management issues: This patient has known obstructive sleep apnea, and I strongly encouraged him to continue wearing his CPAP regularly. 2. Morbid Obesity: I again explained to him that I really want him to go through with bariatric surgery and that ultimately I believe his risk from surgery will be fairly low despite the new diagnosis of Afib. His recent cath was very reassuring in that regard. However, I would like to get him cardioverted first and then pursue surgery (would have to be on Coumadin for 1 month post-cardioversion before holding it for the surgery). He's getting his INR checked again today and hopefully he'll be inthe therapeutic range. 3. Diastolic CHF: Pt had an elevated LVEDP on cath. As such, I'm decreasing his lisinopril back to 10mg daily and starting him on spironolactone 25mg daily in addition to his Lasix. I'm checking repeat labs about a week later and I again counseled him on a low sodium diet. 4. Nonobstructive Coronary Artery Disease: Currently asymptomatic from an ischemic standpoint. I recommend the following medical regimen: Antiplatelets: Not on ASA d/t concurrent warfarin. Statin: LDL 130s in September 2018. Will cont low dose atorvastatin for now but will probably increase at some point for goal LDL < 100. Other: Lifestyle changes as above. Thank you for allowing me to participate in the care of Jitendra Ann. We will plan on f/u in our office in ~1 month to check his INRs and hopefully set him up for the cardioversion at that time. Ifyou have any questions or concerns please feel free to call our office at . Tanmay Esparza MD, 07/04/2019, 11:11 This note was created using my previous note as a template; changes were made where appropriate, andall information in the current note is up to date to the best of my knowledge.Electronically signed by Tanmay Esparza MD at 2018 11:11 AM EDTdocumented in this encounter Plan of Treatment Date Type Specialty Care Team Description 07/11/2019 AntiCoag Anticoagulation 07/18/2019 Lab Internal Medicine 08/08/2019 Office Visit Cardiology Tanmay Esparza MD [address] [place] [address] [phone] 08/10/2019 Office Visit Family Practice Aslhey Christie MD [address] [place] [address] [phone] Name Type Priority Associated Diagnoses Order Schedule BASIC METABOLIC PANEL Lab Routine Chronic diastolic Expected: 07/04/2019 congestive heart failure (Approximate), Expires: (HCC) 12/31/2019 Health Maintenance Due Date Last Done Comments Diabetic Eye Exam 1975 HEMOGLOBIN A1C 09/06/2019 06/06/2019, 03/22/2019, 01/15/2019, Additional history exists LIPID DISORDER SCREENING 10/26/2019 10/26/2018, 07/31/2018, 03/02/2017, Additional history exists DEPRESSION SCREENING 10/30/2019 10/30/2018 FOOT EXAM 06/29/2020 06/29/2019, 06/29/2019, 06/29/2019, Additional history exists PNEUMOCOCCAL 0-64 YRS Completed 11/02/2016 HPV IMMUNIZATION SERIES Aged Out No longer eligible based on patient's age to complete this topic MENINGOCOCCAL VACCINE IMM Aged Out No longer eligible based on patient's age to complete this topic documented as of this encounter Goals Goal Patient Goal Associated Recent Patient-Stated? Author Type Problems Progress Blood Pressure Blood 132/74 No Shahnaz, < 140/90 Pressure (07/04/2019 Ashley Messina, 10:18 AM EDTDaphney ARANDA Note: This is an [...] 9.1 (06/06/2019 2:32 No Ashley Christie PM EDTDaphney Messina MD Note: This is an individualized treatment (diabetes control, HgbA1C) goal for Jitendra Ann: Displayed above is your progress towards your HgbA1C goal. Your goal is shown above (on the left); your most recent HgbA1C is shown on the right. Note that lower numbers are better. Weight loss vs. 18 Lifestyle 22 (07/04/2019 10:18 AM No Ashley Christie mo max (lbs) [...] filedocumented in this encounter Visit Diagnoses Diagnosis Persistent atrial fibrillation (HCC) - Primary Atrial fibrillation ASHD (arteriosclerotic heart disease) Coronary atherosclerosis of unspecified type of vessel, huslia or graft Essential hypertension Unspecified essential hypertension Benign hypertension Essential hypertension, benign Chronic diastolic congestive heart failure (HCC) Chronic diastolic heart failure documented in this encounter documented as of this encounter Advance Directives Code Status Date Activated Date Inactivated Comments Full Code 06/28/2019 11:36 AM Does the patient have decision making capacity? Yes Order was discussed with: Patient I discussed all options and patient/surrogate requested and agreed to: Full Code
--- OUTSIDE RECORDS SUMMARY | 2019-08-25 20:02 | XMS REPORT | Continuity of Care Document ---
:1975 External Reference #:[id number] Author Name Michell Molina NP (transmitted by agent of provider Sammi Domingo) Address [address], [address] [place] [address] Care Team Providers Name Role Phone Ashley Christie MD - Care Team Information Pain Coordinator Family Medicine Problems Active Problems Provider Date Type 2 diabetes mellitus Onset: Social History Type Date Description Comments Sex Unknown Tobacco Use Start: Unknown End: Former Cigarette Smoker 5-6 years 1/2 Pack Daily Tobacco Use Start: Unknown Secondhand smoke All of his life, father smokes Smoking Status Reviewed: 07/13/19 Secondhand smoke All of his life, father smokes ETOH Use Denies alcohol use About a year 02/27/2019 Recreational Drug Use Sporadically uses Marijuana Tobacco Use Start: Unknown End: Patient is a former Unknown smoker Exercise Type/Frequency Exercises rarely Walk the dog, care for dog Allergies, Adverse Reactions, Alerts Active Allergies Reaction Severity Comments Date Metformin Nausea and Vomiting 08/04/2018 Medications Active Medications SIG Qnty Indications Ordering Date Provider Albuterol Sulfate use four times a Unknown 1.25mg/3ML day as needed with Nebulizer nebulizer (using rarely as needed) Ventolin HFA 2 puffs by mouth Unknown 108(90Base) four times a day mcg/Act Aerosol as needed Amlodipine Besylate 1 by mouth every Unknown 10mg day Tablets Advair Diskus 1 puff by mouth Unknown 250-50mcg/Dose twice a day (using Aerosol occasionally as needed) Gabapentin 1 by mouth one Unknown 300mg Capsules time per day at bedtime as needed Glimepiride 1 by mouth twice a Unknown 2mg Tablets day Hydrochlorothiazide 1 by mouth every Unknown 12.5mg day Tablets Basaglar Kwikpen 55 units sc at Unknown 100Unit/ML bedtime Solution Pen-Inject Lisinopril 1 and 1/2 tabs by Unknown 10mg Tablets mouth every day Steglatro Cannariato, 15mg Tablets Ashley Bowen MD Warfarin Sodium Unknown 5mg Tablets Spironolactone McClintic, 25mg Tablets Tanmay Padilla MD Furosemide Cannariato, 40mg Tablets Ashley Bowen MD Metoprolol Succinate ER 1 by mouth every Unknown 25mg day Tablets ER 24HR Immunizations Description No Information Available Vital Signs Date Vital Result Comment 07/13/2019 12:45pm Height 77 inches 6'5" Weight 442.00 lb Heart Rate 60 /min BP Systolic Sitting 120 mmHg Lue large cuff BP Diastolic Sitting 74 mmHg Lue large cuff Respiratory Rate 12 /min O2 % BldC Oximetry 94 % BMI (Body Mass Index) 52.4 kg/m2 02/27/2019 2:14pm Height 77 inches 6'5" Weight 449.00 lb Heart Rate 86 /min BP Systolic Sitting 144 mmHg Lue large cuff BP Diastolic Sitting 80 mmHg Lue large cuff Respiratory Rate 20 /min O2 % BldC Oximetry 98 % On Ra BMI (Body Mass Index) 53.2 kg/m2 Neck Circumference in inches 20.25 Results Description No Information Available Procedures Date Code Description Status 03/09/2019 00282 Sleep Study Unattended,HRT Rate,Oxygen Sat,Resp Completed Effort/Airflow Medical Devices Description No Information Available Encounters Type Date Location Provider Dx Diagnosis Office Visit 02/27/2019 [facility] Ijeoma Travis MD R06.83 Snoring 3:00p [facility] R53.83 Other fatigue E66.9 Obesity, unspecified Z68.33 Body mass index (BMI) 33.0-33.9, adult Assessments Date Code Description Provider 07/13/2019 G47.33 Obstructive sleep apnea (adult) (pediatric) Michell Molina NP 07/13/2019 E66.9 Obesity, unspecified Michell Molina NP 03/09/2019 G47.33 Obstructive sleep apnea (adult) (pediatric) Ijeoma Travis MD 02/27/2019 R06.83 Snoring Ijeoma Travis MD 02/27/2019 R53.83 Other fatigue Ijeoma Travis MD 02/27/2019 E66.9 Obesity, unspecified Ijeoma Travis MD 02/27/2019 Z68.33 Body mass index (BMI) 33.0-33.9, adult Ijeoma Travis MD Plan of Treatment Future Appointment(s):09/06/2019 1:30 pm - Michell Molina NP at [facility]07/13/2019 - Michell Molina NPG47.33 Obstructive sleep apnea (adult) (pediatric)Follow up:6 weeksRecommendations: Work on using your CPAP nightly for your full night of sleep. If you have difficulty with your equipment, or need to replace your mask or hoses, please contact your homecare agency. If you have any further questions, please call the [facility] at [phone] If you have any sleepiness while driving you MUST avoid operating a vehicle or machinery. If you feel tired while driving hand assembler for puller over and take a nap or switch drivers. If you know you are sleepy and need to go somewhere, arrange for a ride or use public transportation. It is very important to not risk your safety or the safety of others.E66.9 Obesity, unspecifiedRecommendations:It is important to bring your CPAP with you to the hospital when you go for your surgery so you can use it when you sleep. In general, using CPAP will help you feel more well rested, which will help with your weight loss. When you are less tired, you will have more energy to exercise and make good food choices. Many people are able to lessen the severity of their sleep apnea or resolve it entirely with weight loss. Once you are at your goal weight, we can re-test you and see if you still have sleep apnea. You should continue using your CPAP until you have a test that shows your sleep apnea has resolved. Functional Status Description No Information Available Mental Status Description No Information Available Referrals Description No Information Available
--- OUTSIDE RECORDS SUMMARY | 2019-08-25 20:02 | XMS REPORT | Summary of Care ---
:1975 Author Organization [facility] Address [address] [facility] [place] [address] Care Team Providers Name Role Phone Ashley Christie MD Primary Care Provider Reason for Visit Reason Comments Follow Up Pt. in for a 1 Month Follow up. Cath done 06/28/19 Encounter Details Date Type Department Care Team Description 08/23/2019 Office Visit Stephanie Esparza, Persistent atrial fibrillation (Primary Dx); Cardiology MD ARIEL Donato (arteriosclerotic heart disease); [address] [facility] Essential hypertension; [place] [address] [place] [address] Chronic diastolic congestive heart failure (HCC) [phone] Allergies Active Allergy Reactions Severity Noted Date Comments Metformin GI Reaction 08/16/2016 documented as of this encounter (statuses as of 08/23/2019) Medications Medication Sig Dispensed Refills Start Date End Date Status clotrimazole 1 Appl by Topical 15 g 0 06/29/2017 Active (LOTRIMIN) 1 % Apply route TWICE DAILY. externally CreamIndications: Tinea pedis of right foot atorvastatin Take 1 Tab by 30 Tab 5 09/28/2017 Active (LIPITOR) 10 MG Oral mouth DAILY. TabIndications: Mixed hyperlipidemia albuterol (ACCUNEB) 3 mL by 125 Ampule 3 09/28/2017 Active 1.25 MG/3ML Inhalation-SVN Inhalation Nebu route EVERY FOUR SolnIndications: HOURS NEEDED Hypoxia, Pneumonia (wheezing, due to infectious shortness of organism, unspecified breath). laterality, unspecified part of lung albuterol HFA Take 2 Puffs by 1 Inhaler 5 05/02/2018 Active (VENTOLIN) 108 (90 inhalation EVERY Base) MCG/ACT FOUR HOURS Inhalation Aero NEEDED (wheezing). SolnIndications: Pneumonia due to infectious organism, unspecified laterality, unspecified part of lung gabapentin Take 1 Cap by 30 Cap 5 07/19/2018 Active (NEURONTIN) 300 MG mouth EVERY Oral CapIndications: BEDTIME. Type 2 diabetes mellitus with diabetic polyneuropathy, with long-term current use of insulin ([facility]) fluticasone-salmetero Take 1 INHL by 1 Inhaler 5 07/19/2018 Active l diskus (ADVAIR inhalation TWICE DISKUS) 250-50 DAILY. Rinse your MCG/DOSE Inhalation mouth after to AEROSOL POWDER, prevent thrush BREATH ACTIVATEDIndications: Hypoxia Blood Glucose Monitor 1 Each by Does not 1 Device 0 07/19/2018 Active Software Does not apply route apply DIRECTED. DeviceIndications: uncontrolled Type 2 diabetes non-insulin mellitus with dependent diabetic diabetes. Brand: polyneuropathy, with insurance long-term current use preferred of insulin ([facility]) Lancets Does not by Does not apply 100 Each 5 07/19/2018 Active apply route DIRECTED. MiscIndications: Type Insulin dependent 2 diabetes mellitus diabetes. Brand: with diabetic insurance polyneuropathy, with preferred, E11.9 long-term current use of insulin ([facility]) Glucose Blood In 100 Strips by In 100 Strip 0 07/19/2018 Active Vitro Vitro route DAILY. StripIndications: uncontrolled Type 2 diabetes non-insulin mellitus with dependent diabetic diabetes; One polyneuropathy, with Touch Verio please long-term current use if covered. of insulin ([facility]) VENTOLIN HFA 108 (90 INHALE TWO PUFFS 18 g 5 05/01/2019 Active Base) MCG/ACT BY MOUTH EVERY 4 Inhalation Aero HOURS NEEDED ( SolnIndications: WHEEZING) Pneumonia due to infectious organism, unspecified laterality, unspecified part of lung metoprolol succinate Take 1 Tab by 90 Tab 3 06/06/2019 Active (TOPROL XL) 50 MG mouth DAILY. Oral TABLET SR 24 HRIndications: Atrial fibrillation, unspecified type ([facility]) amLodipine (NORVASC) TAKE ONE TABLET BY 30 Tab 5 06/19/2019 Active 10 MG Oral MOUTH EVERY DAY TabIndications: Benign hypertension Insulin Pen Needle 1 Device by 100 Each 5 06/22/2019 Active (NOVOFINE) 32G X 6 MM Injection route Does not apply DAILY. MiscIndications: Type 2 diabetes mellitus with diabetic polyneuropathy, without long-term current use of insulin ([facility]) Ertugliflozin Take 15 mg by 30 Tab 5 06/29/2019 Active L-PyroglutamicAc mouth DAILY. New (STEGLATRO) 15 MG higher dose Oral TabIndications: Type 2 diabetes mellitus with diabetic polyneuropathy, with long-term current use of insulin ([facility]) Insulin Glargine Inject 65-75 Units 10 Device 11 06/29/2019 Active (BASAGLAR KWIKPEN) beneath the skin 100 UNIT/ML DAILY. Subcutaneous Solution Pen-injectorIndicatio ns: Type 2 diabetes mellitus with diabetic polyneuropathy, with long-term current use of insulin ([facility]) glimepiride (AMARYL) Take 1 Tab by 60 Tab 5 06/29/2019 Active 4 MG Oral mouth TWICE DAILY. TabIndications: Type 2 diabetes mellitus with diabetic polyneuropathy, with long-term current use of insulin ([facility]) furosemide (LASIX) 40 Take 1 Tab by 30 Tab 5 06/29/2019 Active MG Oral mouth DAILY. TabIndications: Edema of both legs spironolactone Take 1 Tab by 90 Tab 3 07/04/2019 Active (ALDACTONE) 25 MG mouth DAILY. Oral TabIndications: Chronic diastolic congestive heart failure ([facility]) warfarin (COUMADIN) 5 Take 2-3 Tabs by 60 Tab 2 07/11/2019 Active MG Oral mouth DAILY. As TabIndications: directed Atrial fibrillation, unspecified type ([facility]) lisinopril (PRINIVIL, Take 1 Tab by 30 Tab 5 08/10/2019 Active ZESTRIL) 20 MG Oral mouth DAILY. TabIndications: Benign hypertension documented as of this encounter (statuses as of 08/23/2019) Active Problems Problem Noted Date Abnormal cardiovascular function study 06/14/2019 Overview: Added automatically from request for surgery [id number] Atrial fibrillation 06/06/2019 Atrial fibrillation, unspecified type 06/06/2019 BMI 50.0-59.9, adult 08/16/2016 Benign hypertension 08/16/2016 Type 2 diabetes mellitus with diabetic polyneuropathy, with long-term 2015 current use of insulin documented as of this encounter (statuses as of 08/23/2019) Immunizations Name Administration Dates Next Due Influenza (IM) Preservative Free 08/10/2019, 08/31/2016 Influenza Vaccine Split 09/08/2017 PNEUMOCOCCAL POLYSACCHARIDE [...] Sign Reading Time Taken Comments Blood Pressure 128/70 08/23/2019 1:01 PM EDT Pulse 94 08/23/2019 1:01 PM EDT irregular Temperature - - Respiratory Rate - - Oxygen Saturation - - Inhaled Oxygen Concentration - - Weight 196.4 kg (433 lb) 08/23/2019 1:01 PM EDT Height 198.1 cm (6' 6") 08/23/2019 1:01 PM EDT Body Mass Index 50.04 08/23/2019 1:01 PM EDT documented in this encounter Patient Instructions Patient InstructionsMcTanmay Gandara MD - 08/23/2019 1:20 PM EDT No medication changes today. Get your bloodwork checked today. Schedule a cardioversion in [place] on September 04. Bring your CPAP to the procedure and take your usual medications on the morning of the procedure. Schedule follow up with me in about 4-6 weeks from now. documented in this encounter Progress Notes Tanmay Esparza MD - 08/23/2019 1:20 PM EDT Stephanie Cardiology Note Patient: Jitendra Ann Date of : 1975 Date of Service: 08/23/2019 REFERRING PRACTITIONER: Ashley Christie PRIMARY CARE PROVIDER: Ashley Christie Chief Complaint: Chief Complaint Patient presents with Follow Up Pt. in for a 1 Month Follow up. Cath done 06/28/19 History of Present Illness: We had the pleasure of seeing Jitendra Ann today at the [facility] Office. He is a 43-y.o. male with morbid obesity, severe KYM, DM2, and HTN. He also has persistent atrial fibrillation. He had a false positive nuclear stress test 05/2019 with subsequent left heart cath showing minimal nonobstructive CAD. Mr. Ann returns to cardiology clinic today for close f/u. He reports feeling fairly well overallbut continues to have some mild palpitations at times. He continues to follow up with Dr. Diana james looking toward getting his bariatric surgery after we do the cardioversion. No CP/pressure and his breathing has been OK. Wears his CPAP regularly and his LE edema hasn't been too bad. No lightheadedness or syncope. Patient Active Problem List Diagnosis BMI 50.0-59.9, adult (HCC) Benign hypertension Type 2 diabetes mellitus with diabetic polyneuropathy, with long-term current use of insulin (HCC) Atrial fibrillation (HCC) Atrial fibrillation, unspecified type (HCC) Abnormal cardiovascular function study Past Medical History: Diagnosis Date Asthma as a young child Atrial fibrillation (HCC) 06/06/2019 Diabetes mellitus ([facility]) dx age 37, type 2 Essential (primary) hypertension Past Surgical History: Procedure Laterality Date CATHETERIZATION HEART LEFT N/A 06/28/2019 Procedure: CATHETERIZATION HEART LEFT; Surgeon: Singh Chaves MD; Location: [facility] Allergies Allergen Reactions Metformin GI Reaction Current [...] Brand: insurance preferred, E11.9 lisinopril (PRINIVIL, ZESTRIL) 20 MG Oral Tab Take 1 Tab by [...] file Gets together: Not on file Attends advent service: Not on file Active member of [...] History Narrative Works in a Kitchen at [employer] His father lives with him Pet: dog Review of Systems - Negative except as noted in HPI. Physical Exam: Vitals: 08/23/19 1301 BP: 128/70 BP Location: Right arm Patient Position: Sitting Pulse: 94 Weight: (!) 433 lb (196.4 kg) Height: 6' 6" (1.981 m) Body mass index is 50.04 kg/m. General: Obese, alert 43-y.o. male in [...] No appreciable pulsatile masses or bruits. Ext: No sig lower extremity edema, no cyanosis, no cords, redness, or warmth, 2 + distal pulses. Neuro: no gross focal deficits Skin: Mild venous stasis changes on LEs. Labs: Lab Results Component Value Date NA 139 07/18/2019 K 4.5 07/18/2019 CL 100 07/18/2019 CO2 31 (H) 07/18/2019 GLUCOSE 138 (H) 07/18/2019 BUN 17 07/18/2019 CREATININE 0.6 (L) 07/18/2019 CALCIUM 8.8 07/18/2019 TP 6.9 05/10/2019 ALBUMIN 3.7 05/10/2019 AST 19 05/10/2019 ALT 22 05/10/2019 ALK 85 05/10/2019 TBILI 0.4 05/10/2019 EGFR >60 07/18/2019 No results found for: BNP Lab Results Component Value Date CHOL 199 10/26/2018 TRIG 135 10/26/2018 HDL 38 (L) 10/26/2018 LDL 134 (H) 10/26/2018 LDLHDLRATIO 3.5 10/26/2018 CHOLHDLRATIO 5.2 10/26/2018 Cardiac Studies: EKG Today (I personally reviewed): Afib in 90s. Poor R wave progression. Borderline inferior Q waves. Left Heart Cath 06/19/2019: Non-obstructive coronary artery [...] CAD. ICD-9-CM ICD-10-CM 1. Persistent atrial fibrillation 427.31 I48.19 AMBULATORY 12 LEAD EKG (GLOBAL) 2. ASHD (arteriosclerotic heart disease) 414.00 I25.10 3. Essential hypertension 401.9 I10 4. Chronic diastolic congestive heart failure (HCC) 428.32 I50.32 428.0 1. Persistent Atrial Fibrillation: The etiology of atrial fibrillation in this patient is most likely related to obesity, KYM, HTN, and DM. The heart-rate is currently well controlled on the current medical regimen. This patient's [id number] -Vasc score is 2. I recommend the following treatment strategy and medical regimen for this patient: Stroke prevention: Based on the patient's [id number] risk profile, I recommend continuing OACtherapy. Given his morbid obesity, we are using warfarin and his INR has finally become therapeuticstarting on 08/01. After his bariatric surgery, if he's been [...] if it helps to reduce his dyspnea. We are going to plan on a cardioversion on , which will be at least one month of a therapeutic INR. He'll then have toremain on warfarin for a month afterwards and then can hold the Coumadin for a bariatric procedure after the one month. Further workup/management issues: This patient has known obstructive sleep apnea, and I strongly encouraged him to continue wearing his CPAP regularly. 2. Morbid Obesity: I again explained to him that I really want him to go through with bariatric surgery and that ultimately I believe his risk from surgery will be fairly low despite the new diagnosis of Afib. I would like to do the cardioversion first and he'll have to be on Coumadin for 1 month post- cardioversion before holding it for the surgery. 3. Diastolic CHF: Symptoms stable. Continue Lasix and spironolactone. 4. Nonobstructive Coronary Artery Disease: Currently asymptomatic [...] in our office in ~1 month to see how he's doing post- cardioversion. If you have any questions or concerns please feel free to call our office at . Tanmay Esparza MD, 08/23/2019, 13:28 This note was created using my previous note as a template; changes were made where appropriate, andall information in the current note is up to date to the best of my knowledge.Electronically signed by Tanmay Esparza MD at 2018 1:44 PM EDTdocumented in this encounter Plan of Treatment Date Type Specialty Care Team Description 08/30/2019 AntiCoag Anticoagulation 09/20/2019 Office Visit Cardiology Tanmay Esparza MD [address] [place] [address] 10/10/2019 Lab Internal Medicine 10/17/2019 Office Visit [facility] Ashley Christie MD [address] [place] [address] Name Type Priority Associated Diagnoses Order Schedule AMBULATORY 12 LEAD EKG EKG Routine Persistent atrial Ordered: 08/23/2019 (GLOBAL) fibrillation (HCC) CBC NO DIFFERENTIAL Lab Routine Persistent atrial Expected: 08/23/2019 fibrillation (HCC) (Approximate), Expires: 02/19/2020 BASIC METABOLIC PANEL Lab Routine Persistent atrial Expected: 08/23/2019 fibrillation (HCC) (Approximate), Expires: 02/19/2020 MAGNESIUM LEVEL Lab Routine Persistent atrial Expected: 08/23/2019 fibrillation (HCC) (Approximate), Expires: 08/23/2020 Health Maintenance Due Date Last Done Comments HEMOGLOBIN A1C 10/17/2019 07/18/2019, 06/06/2019, 03/22/2019, Additional history exists LIPID DISORDER SCREENING 10/26/2019 10/26/2018, 07/31/2018, 03/02/2017, Additional history exists DEPRESSION SCREENING 10/30/2019 10/30/2018 FOOT EXAM 06/29/2020 06/29/2019, 06/29/2019, 06/29/2019, Additional history exists Diabetic Eye Exam 07/24/2020 07/24/2019, 07/24/2019 PNEUMOCOCCAL 0-64 YRS Completed 11/02/2016 HPV IMMUNIZATION SERIES Aged Out No longer eligible based on patient's age to complete this topic MENINGOCOCCAL VACCINE IMM Aged Out No longer eligible based on patient's age to complete this topic documented as of this encounter Goals Goal Patient Goal Associated Recent Patient-Stated? Author Type Problems Progress Blood Pressure Blood 128/70 No Shhanaz, < 140/90 Pressure (08/23/2019 Ashley Messina, 1:01 PM EDT) Note: This is an individualized treatment (blood pressure) goal for Jitendra Ann: Displayed above (on the left) is your goal for blood pressure control. Your most recent blood pressure is also shown above, on the right. You should try to achieve blood pressures that are lower than your goal listed above (on the left). Glycohemoglobin A1c < 7.0 Diabetes 8.3 (07/18/2019 9:14 No Ashley Christie AM EDTDaphney Messina MD Note: This is an individualized treatment (diabetes control, HgbA1C) goal for Jitendra Ann: Displayed above is your progress towards your HgbA1C goal. Your goal is shown above (on the left); your most recent HgbA1C is shown on the right. Note that lower numbers are better. Weight loss vs. 18 Lifestyle 25 (08/23/2019 1:01 PM No Ashley Christie mo max (lbs) >= [...] encounter Visit Diagnoses Diagnosis Persistent atrial fibrillation - Primary Atrial fibrillation ASHD (arteriosclerotic heart disease) Coronary atherosclerosis of unspecified type of vessel, kletsel dehe wintun or graft Essential hypertension Unspecified essential hypertension Chronic diastolic congestive heart failure (HCC) Chronic [...]
--- OUTSIDE RECORDS SUMMARY | 2019-08-25 20:02 | XMS REPORT | Summary of Care ---
:1975 Author Organization [facility] Address [address] [place] [address] Care Team Providers Name Role Phone Ashley Christie MD Primary Care Provider Reason for Visit Reason Comments Check Up Encounter Details Date Type Department Care Team Description 08/10/2019 Office Visit [facility] Shahnaz, Benign hypertension ( Primary Dx); Practice Ashley Messina MD Need for vaccination; [address] Type 2 diabetes mellitus with diabetic polyneuropathy, with long-term current use of insulin ([facility]); [place] [address] [place] [address] Mixed hyperlipidemia; [phone] KYM on CPAP; Type 2 diabetes mellitus with diabetic polyneuropathy , with long-term current use of insulin ([facility]); BMI 50.0-59.9, adult ([facility]); Paroxysmal atrial fibrillation ([facility]) Allergies Active Allergy Reactions Severity Noted Date Comments Metformin GI Reaction 08/16/2016 documented as of this encounter (statuses as of 08/10/2019) Medications Medication Sig Dispensed Refills Start End [...] Take 2 Puffs by 1 Inhaler 5 201 Active (VENTOLIN) 108 (90 inhalation EVERY 8 Base) MCG/ACT FOUR HOURS Inhalation Aero NEEDED SolnIndications: (wheezing). Pneumonia due to infectious organism, unspecified laterality, unspecified part of lung gabapentin Take 1 Cap by 30 Cap Active (NEURONTIN) 300 MG mouth EVERY 8 Oral BEDTIME. CapIndications: Type 2 diabetes mellitus with diabetic polyneuropathy, with long-term current use of insulin ([facility]) fluticasone-salmet Take 1 INHL by 1 Inhaler [...] with long-term preferred current use of insulin ([facility]) Lancets Does not by Does not 100 Each Active apply apply route 8 MiscIndications: DIRECTED. Type 2 diabetes Insulin mellitus with dependent diabetic diabetes. Brand: polyneuropathy, insurance with long-term preferred, E11.9 current use of insulin ([facility]) Glucose Blood In 100 Strips by In 100 Strip 0 Active Vitro Vitro route 8 StripIndications: DAILY. Type 2 diabetes uncontrolled mellitus with non-insulin diabetic dependent polyneuropathy, diabetes; One with long-term Touch Verio current use of please if insulin ([facility]) covered. VENTOLIN HFA 108 INHALE TWO PUFFS 18 g Active (90 Base) MCG/ACT BY MOUTH EVERY 4 9 Inhalation Aero HOURS NEEDED SolnIndications: ( WHEEZING) Pneumonia due to infectious organism, unspecified laterality, unspecified part of lung metoprolol Take 1 Tab by 90 Tab 3 Active succinate (TOPROL mouth DAILY. 9 XL) 50 MG Oral TABLET SR 24 HRIndications: Atrial fibrillation, unspecified type (HCC) amLodipine TAKE ONE TABLET 30 Tab 5 Active (NORVASC) 10 MG BY MOUTH EVERY 9 Oral DAY TabIndications: Benign hypertension Insulin Pen Needle 1 Device by 100 Each 5 Active (NOVOFINE) 32G X 6 Injection route 9 MM Does not apply DAILY. MiscIndications: Type 2 diabetes mellitus with diabetic polyneuropathy, without long-term current use of insulin ([facility]) Ertugliflozin Take 15 mg by 30 Tab 5 Active L-PyroglutamicAc mouth DAILY. New 9 (STEGLATRO) 15 MG higher dose Oral TabIndications: Type 2 diabetes mellitus with diabetic polyneuropathy, with long-term current use of insulin ([facility]) Insulin Glargine Inject 65-75 10 Device 11 Active (BASAGLAR KWIKPEN) Units beneath 9 100 UNIT/ML the skin DAILY. Subcutaneous Solution Pen-injectorIndica tions: Type 2 diabetes mellitus with diabetic polyneuropathy, with long-term current use of insulin ([facility]) glimepiride Take 1 Tab by 60 Tab 5 Active (AMARYL) 4 MG Oral mouth TWICE 9 TabIndications: DAILY. Type 2 diabetes mellitus with diabetic polyneuropathy, with long-term current use of insulin ([facility]) furosemide (LASIX) Take 1 Tab by 30 Tab 5 Active 40 MG Oral mouth DAILY. 9 TabIndications: Edema of both legs spironolactone Take 1 Tab by 90 Tab 3 Active (ALDACTONE) 25 MG mouth DAILY. 9 Oral TabIndications: Chronic diastolic congestive heart failure ([facility]) warfarin Take 2-3 Tabs by 60 Tab 2 Active (COUMADIN) 5 MG mouth DAILY. As 9 Oral directed TabIndications: Atrial fibrillation, unspecified type ([facility]) lisinopril Take 1 Tab by 30 Tab 5 Active (PRINIVIL, mouth DAILY. 9 ZESTRIL) 20 MG Oral TabIndications: Benign hypertension lisinopril Take 1 Tab by 90 Tab 0 08/10/20 Discontinued (PRINIVIL, mouth DAILY. 9 19 (Duplicate ZESTRIL) 10 MG Order) Oral TabIndications: Benign hypertension lisinopril TAKE 1 & 1/2 45 Tab 5 08/10/20 Discontinued (PRINIVIL, TABLETS BY MOUTH 9 19 (Dose ZESTRIL) 10 MG ONCE DAILY Adjustment) Oral TabIndications: Benign hypertension documented as of this encounter (statuses as of 08/10/2019) Active Problems Problem Noted Date Abnormal cardiovascular function study 06/14/2019 Overview: Added automatically from request for surgery [id number] Atrial fibrillation 06/06/2019 Atrial fibrillation, unspecified type 06/06/2019 BMI 50.0-59.9, adult 08/16/2016 Benign hypertension 08/16/2016 Type 2 diabetes mellitus with diabetic polyneuropathy, with long-term 2015 current use of insulin documented as of this encounter (statuses as of 08/10/2019) Immunizations Name Administration Dates Next Due Influenza [...] Sign Reading Time Taken Comments Blood Pressure 130/80 08/10/2019 11:05 AM EDT Pulse 55 08/10/2019 11:05 AM EDT Temperature 35.6 08/10/2019 11:05 AM EDT C (96.1 F) Respiratory Rate - - Oxygen Saturation 90% 08/10/2019 11:05 AM EDT Inhaled Oxygen Concentration - - Weight 199.1 kg (439 lb) 08/10/2019 11:05 AM EDT Height 198.1 cm (6' 6") 08/10/2019 11:05 AM EDT Body Mass Index 50.73 08/10/2019 11:05 AM EDT documented in this encounter Patient Instructions Patient InstructionsAshley Christie MD - 08/10/2019 11:00 AM EDTIncrease lisinopril to 20 mg daily. Increase your Lantus to 75 units daily. Please check a BMP in 2 weeks with the above change Your A1C and lipid profile, and next diabetes check is due in September. 11: 35 AM EDT documented in this encounter Progress Notes Ashley Christie MD - 08/10/2019 11:00 AM EDT Nursing Notes: Fatoumata Art LPN 08/10/2019 11:21 AM Signed Chief Complaint Patient presents with Check Up SUBJECTIVE: Jitendra Ann is an 43-y.o. male who presents for evaluation and treatment of Type 2 diabetes mellitus, hypoxia, hypertension. I increased His lisinopril last visit His BP was high at his disability exam Tuesday in [place]. He is only taking 1 lisinopril, not 1.5 tabs: Her forgot. He has not yet taken his BP [...] did not tolerate metformin in the past. Since last visit he saw Tanmay Esparza [...] cath. He had a cardiac catheterization at [facility] 06/28/19: No obstructive atherosclerotic heart disease; Dr Chaves. He sees Tanmay Esparza MD again 08/23/19. He had his sleep study, has KYM. He has now gotten his machine. He is using it nightly after struggling to adjust to it. He gets oxygen from [facility] [place] so it was ordered there. He lost his job due to inability to keep up, back pain. When cooking he becomes very short of breath, cannot keep up. Back bothers him also. He finds it hard to breath in a hot kitchen, with the heat. He has been more short of breath. He has applied for disability. He has a disability exam in [place] coming up. He has an AC at [...] 150-200. occ 130, max 215, averagee 180 Lab Results Component Value Date INR (POCT) 4.0 (A) 08/10/2019 INR (POCT) 2.7 08/01/2019 INR (POCT) 1.6 (A) 07/25/2019 Last HgbA1c: Lab Results Component Value Date GLYCO 8.3 (H) 07/18/2019 GLYCO 9.1 (H) 06/06/2019 GLYCO 10.2 (H) 01/15/2019 Last eye exam: Dr Palma last month Last microalbumin: 04/02/19 Last microfilament foot exam: 07/2019 LDL: Lab Results Component Value Date CHOL 199 10/26/2018 TRIG 135 10/26/2018 HDL 38 (L) 10/26/2018 LDL 134 (H) 10/26/2018 LDLHDLRATIO 3.5 10/26/2018 CHOLHDLRATIO 5.2 10/26/2018 Lab Results Component Value Date NA 139 07/18/2019 K 4.5 07/18/2019 CL 100 07/18/2019 CO2 31 (H) 07/18/2019 GLUCOSE 138 (H) 07/18/2019 BUN 17 07/18/2019 CREATININE 0.6 (L) 07/18/2019 CALCIUM 8.8 07/18/2019 TP 6.9 05/10/2019 ALBUMIN 3.7 05/10/2019 AST 19 05/10/2019 ALT 22 05/10/2019 ALK 85 05/10/2019 TBILI 0.4 05/10/2019 EGFR >60 07/18/2019 Lab Results Component Value Date INR (POCT) 4.0 (A) 08/10/2019 INR (POCT) 2.7 08/01/2019 INR (POCT) 1.6 (A) 07/25/2019 Immunizations: Immunization History Administered Date(s) Administered Influenza (IM) Preservative Free 08/31/2016, 08/10/2019 Influenza Vaccine Split 09/08/2017 PNEUMOCOCCAL POLYSACCHARIDE VACCINE [...] 100 UNIT/ML Subcutaneous Solution Pen -injector Inject 70 Units beneath the skin DAILY. 5 Device 11 Insulin Pen Needle (NOVOFINE) 32G X 6 MM Does not apply Misc 1 Device by Injection route DAILY. 100 Each 5 Lancets Does not apply Misc by Does not apply route DIRECTED. Insulin dependent diabetes. Brand: insurance preferred, E11.9 100 Each 5 lisinopril (PRINIVIL, ZESTRIL) 10 MG Oral Tab Take 1.5 Tab by mouth DAILY. 45 Tab 5 [...] HEART LEFT; Surgeon: Singh Chaves MD; Location: [facility] Family History Problem Relation Age of Onset [...] or vision changes Ears/Nose/Throat: negative Respiratory: Denies worsened shortness of breath or URI symptoms Cardiovascular: negative for chest pain or pressure, no orthopnea Gastrointestinal: negative for abdominal pain, difficulty swallowing Genitourinary: negative for dysuria or frequency Musculoskeletal: negative for edema, negative for ankle pain Neurologic: negative for dizziness, syncope OBJECTIVE: BP 130/80 (BP Location: Right arm, Patient Position: Sitting) | Pulse 55 | Temp 96.1 F (35.6 C) (Tympanic) | Ht 6' 6" (1.981 m) | Wt (!) 439 lb ( 199.1 kg) | SpO2 90% | BMI 50.73 kg/m General appearance: alert, no distress, oriented times 3 Skin: Skin color, texture, turgor normal. No rashes or lesions. Eyes: conjunctivae/corneas clear. PERRL, EOM's grossly intact. Ears: negative findings: external ears normal to inspection and palpation Neck: Neck supple. No cervical or supraclavicular [...] Gait normal, strength grossly normal and symmetric. ASSESSMENT/PLAN: ICD-9-CM ICD-10-CM 1. Benign hypertension 401.1 I10 lisinopril (PRINIVIL, ZESTRIL) 20 MG Oral Tab BASIC METABOLIC PANEL 2. Need for vaccination V05.9 Z23 [place] FLU VACCINE PRES FREE 6MOS+ ADMINISTRATION VACCINE SINGLE 3. Type 2 diabetes mellitus with diabetic polyneuropathy, with long-term current use of insulin ([facility]) 250.60 E11.42 357.2 Z79.4 V58.67 4. Mixed hyperlipidemia 272.2 E78.2 COMPREHENSIVE METABOLIC PANEL 5. KYM on CPAP 327.23 G47.33 V46.8 Z99.89 6. Type 2 diabetes mellitus with diabetic polyneuropathy, with long-term current use of insulin ([facility]) 250.60 E11.42 COMPREHENSIVE METABOLIC PANEL 357.2 GLYCOHEMOGLOBIN A1C 7. BMI 50.0-59.9, adult ([facility]) V85.43 Z68.43 8. Paroxysmal atrial fibrillation ([facility]) 427.31 I48.0 1. Type 2 diabetes mellitus with diabetic polyneuropathy, with long-term current use of insulin ([facility]) Not yet at goal, increase lantus to 75 units daily Continue other meds Recheck A1C in September 2. Edema of both legs Improved, continue furosemide. Potassium remains normal so stay off potassium supplement. 3. Benign hypertension Up a bit: Increase lisinopril to 20 mg daily Check BMP in 1-2 weeks. 4. Mixed hyperlipidemia Check lipids in September 5. KYM on CPAP He is adjusting to cpap and now using it nightly 6. Paroxysmal atrial fibrillation (HCC) Now on warfarin and metoprolol and tolerating them well. He goes to antico clinic for INR checks. Cardiac cath was negative for sig obstruction 7. BMI 50.0-59.9, adult ([facility]) He continues to work with bariatrics and will hopefully qualify for surgery soon. Rx: BA? Yes Statin? Yes Metformin? No, not tolerated Follow up 2 months, sooner prn. Patient Instructions Increase lisinopril to 20 mg daily. Increase your Lantus to 75 units daily. Please check a BMP in 2 weeks with the above change Your A1C and lipid profile, and next diabetes check is due in September. Author: Ashley Christie MD 08/10/2019 12:34 documented in this encounter Plan of Treatment Date Type Specialty Care Team Description 08/15/2019 AntiCoag Anticoagulation 08/23/2019 Lab Internal Medicine 08/23/2019 AntiCoag Anticoagulation 08/23/2019 Office Visit Cardiology Tanmay Esparza MD [address] [place] [address] 10/10/2019 Lab Internal Medicine 10/17/2019 Office Visit Family Practice Ashley Christie MD [address] [place] [address] Name Type Priority Associated Diagnoses Order Schedule BASIC METABOLIC PANEL Lab Routine Benign hypertension Expected: 08/24/2019 (Approximate), Expires: 08/10/2020 ADMINISTRATION VACCINE Procedures Routine Need for vaccination Ordered: SINGLE 08/10/2019 COMPREHENSIVE METABOLIC Lab Routine Mixed hyperlipidemia Expected: PANEL Type 2 diabetes 10/10/2019 mellitus with diabetic (Approximate), polyneuropathy, with Expires: long-term current use 08/10/2020 of insulin ([facility]) GLYCOHEMOGLOBIN A1C Lab Routine Type 2 diabetes Expected: mellitus with diabetic 10/10/2019 polyneuropathy, with (Approximate), long-term current use Expires: of insulin ([facility]) 08/10/2020 Health Maintenance Due Date Last Done Comments HEMOGLOBIN A1C 10/17/2019 07/18/2019, 06/06/2019, 03/22/2019, Additional history exists LIPID DISORDER SCREENING 10/26/2019 10/26/2018, 07/31/2018, 03/02/2017, Additional history exists DEPRESSION SCREENING 10/30/2019 10/30/2018 FOOT EXAM 06/29/2020 06/29/2019, 06/29/2019, 06/29/2019, Additional history exists Diabetic Eye Exam 07/24/2021 07/24/2019 PNEUMOCOCCAL 0-64 YRS Completed 11/02/2016 HPV IMMUNIZATION SERIES Aged Out No longer eligible based on patient's age to complete this topic MENINGOCOCCAL VACCINE IMM Aged Out No longer eligible based on patient's age to complete this topic documented as of this encounter Goals Goal Patient Goal Associated Recent Patient-Stated? Author Type Problems Progress Blood Pressure Blood 130/80 No Shahnaz, < 140/90 Pressure (08/10/2019 Ashley Messina, 11:05 AM EDT) Note: This is an individualized treatment [...] are better. Weight loss vs. 18 Lifestyle 19 (08/10/2019 11:05 AM No Ashley Christie mo max (lbs) [...] filedocumented in this encounter Visit Diagnoses Diagnosis Benign hypertension - Primary Essential hypertension, benign Need for vaccination Need for prophylactic vaccination and inoculation against unspecified single disease Type 2 diabetes mellitus with diabetic polyneuropathy, with long-term current use of insulin (HCC) Mixed hyperlipidemia KYM on CPAP Obstructive sleep apnea (adult) (pediatric) Type 2 diabetes mellitus with diabetic polyneuropathy, with long-term current use of insulin (HCC) BMI 50.0-59.9, adult (HCC) Body Mass Index 50.0-59.9, adult Paroxysmal atrial fibrillation (HCC) Atrial fibrillation documented in this encounter documented as of this encounter Advance Directives Code Status Date Activated Date Inactivated Comments Full Code 06/28/2019 11:36 AM Does the patient have decision making capacity? Yes Order was discussed with: Patient I discussed all options and patient/surrogate requested and agreed to: Full Code
--- OUTSIDE RECORDS SUMMARY | 2019-08-25 20:02 | XMS REPORT | Continuity of Care Document ---
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 Problems Active Problems Provider Date Type 1 diabetes mellitus John Conley OD Onset: 07/24/2019 Social History Type Date Description Comments Sex Unknown ETOH Use Rarely consumes alcohol Tobacco Use Start: Unknown Patient has never smoked Smoking Status Reviewed: 07/23/19 Patient has never smoked Allergies, Adverse Reactions, Alerts Active Allergies Reaction Severity Comments Date Metformin 07/24/2019 Medications Active Medications SIG Qnty Indications Ordering Date Provider Steglatro Take One Tablet By Unknown 15mg Tablets Mouth Every Day 0 New Higher Dose Warfarin Sodium Take 2 To 3 Tablets Unknown 5mg Tablets By Mouth Once Daily 0 as Directed By Furosemide Take One Tablet By Unknown 40mg Tablets Mouth Every Day 0 Basaglar Kwikpen Inject 65 75 Units Unknown 100Unit/ML Subcutaneously Daily 0 Solution Pen-Inject Lisinopril Take 1 1/2 Tablets Unknown 10mg Tablets By Mouth Once Daily 0 Spironolactone Take One Tablet By Unknown 25mg Tablets Mouth Every Day 0 Glimepiride Take One Tablet By Unknown 4mg Tablets Mouth Twice A Day 0 Amlodipine Besylate Take One Tablet By Unknown 10mg Mouth Every Day 0 Tablets Novofine Use 1 Pen Needle Unknown 32G X 6 mm Misc Daily With Insulin 0 Gabapentin Take One Capsule By Unknown 300mg Capsules Mouth Every Day AT 0 Bedtime Hydrochlorothiazide Take One Capsule By Unknown 12.5mg Mouth Every Day 0 Capsules Immunizations Description No Information Available Vital Signs Date Vital Result Comment 07/24/2019 1:22pm Intraocular Pressure Right Eye 22 mmHg Intraocular Pressure Left Eye 22 mmHg Cornea Thickness Left Eye 512 m Cornea Thickness Right Eye 522 m Pachymetry adjusted IOP Right Eye +2 Pachymetry adjusted IOP Left Eye +1 Results Description No Information Available Procedures Date Code Description Status 07/24/2019 94805 Fundus Photography W/Interpretation & Report Completed 07/24/2019 56167 Ophthalmoscopy Initial Completed 07/24/2019 72801 Refraction Completed 07/24/2019 60954 Eye Exam New Comprehensive Completed 07/24/2019 46572 Corneal Pachymetry, Unilateral/Bilateral Completed Medical Devices Description No Information Available Encounters Description No Information Available Assessments Date Code Description Provider 07/24/2019 H40.013 Open angle with borderline findings, low risk, John Jarvis, OD bilateral 07/24/2019 H52.13 Myopia, bilateral John Conley, OD 07/24/2019 E10.9 Type 1 diabetes mellitus without complications John Conley, OD Plan of Treatment No Information Available Functional Status Description No Information Available Mental Status Description No Information Available Referrals Description No Information Available
--- OUTSIDE RECORDS SUMMARY | 2019-08-25 20:02 | XMS REPORT | Summary of Care ---
:1975 Author Organization [facility] Address [address] [place] [address] Care Team Providers Name Role Phone Ashley Christie MD Primary Care Provider Reason for Visit Auth/Cert Status Reason Specialty Diagnoses / Procedures Referred By Referred To Contact Contact Diagnoses Abnormal result of cardiovascular function study, unspecified Other forms of dyspnea Procedures NV CATH PLACEMENT & NJX CORONARY ART ANGIO IMG S&I Encounter Details Date Type Department Care Team Description 06/28/2019 Hospital Encounter [facility] Cardiac Town Administrator Singh Chaves MD [address] [place] [address] Short Procedure 1 Hugo Lara MD [address] [place] [address] [place] [address] Allergies Active Allergy Reactions Severity Noted Date [...] polyneuropathy, with long-term current use of insulin ([facility]) fluticasone-salmet Take 1 INHL by 1 [...] with long-term preferred current use of insulin ([facility]) Lancets Does not by Does not 100 Each Active apply apply route 8 MiscIndications: DIRECTED. Type 2 diabetes Insulin mellitus with dependent diabetic diabetes. Brand: polyneuropathy, insurance with long-term preferred, E11.9 current use of insulin ([facility]) Glucose Blood In 100 Strips by In 100 Strip 0 Active Vitro Vitro route 8 StripIndications: DAILY. Type 2 diabetes uncontrolled mellitus with non-insulin diabetic dependent polyneuropathy, diabetes; One with long-term Touch Verio current use of please if insulin ([facility]) covered. VENTOLIN HFA 108 INHALE TWO [...] SR 24 HRIndications: Atrial fibrillation, unspecified type ([facility]) amLodipine TAKE ONE TABLET 30 Tab 5 Active (NORVASC) 10 MG BY MOUTH EVERY 9 Oral DAY TabIndications: Benign hypertension glimepiride TAKE ONE TABLET 60 Tab 3 06/29/20 Discontinued (AMARYL) 4 MG Oral BY MOUTH TWICE A 9 19 (Reorder) TabIndications: DAY Type 2 diabetes mellitus with diabetic polyneuropathy, with long-term current use of insulin ([facility]) Insulin Glargine Inject 65,070 5 Device 11 06/29/20 Discontinued (BASAGLAR KWIKPEN) Units beneath 9 (Dose 100 UNIT/ML the skin DAILY. Adjustment) Subcutaneous Solution Pen-injectorIndica tions: Type 2 diabetes mellitus with diabetic polyneuropathy, with long-term current use of insulin ([facility]) Ertugliflozin Take 5 mg by 30 Tab 3 06/29/20 Discontinued L-PyroglutamicAc mouth EVERY 07 19 (STEGLATRO) 5 MG MORNING. Oral TabIndications: Type 2 diabetes mellitus with diabetic polyneuropathy, with long-term current use of insulin ([facility]) furosemide (LASIX) Take 1 Tab by [...] Overview: Added automatically from request for surgery [id number] Atrial fibrillation 06/06/2019 Atrial fibrillation, unspecified type [...] Sign Reading Time Taken Comments Blood Pressure 147/77 06/28/2019 4:00 PM EDT Pulse 84 06/28/2019 4:00 PM EDT Temperature 35.8 06/28/2019 12:30 PM EDT C (96.4 F) Respiratory Rate 14 06/28/2019 4:00 PM EDT Oxygen Saturation 92% 06/28/2019 4:00 PM EDT Inhaled Oxygen Concentration - - Weight 200.9 kg (443 lb) 06/28/2019 12:30 PM EDT Height 195.6 cm (6' 5") 06/28/2019 12:30 PM EDT Body Mass Index 52.53 06/28/2019 12:30 PM EDT documented in this encounter Discharge Instructions Glenis Willams RN - 06/28/2019Provider's Instructions Reason for Admission or Diagnosis:Abnormal cardiovascular function study Activity: no lifting, or Strenuous exercise for 3 day Wound Care: Keep site clean and dry. Soft bruising or pea size lump is normal. If firm, hard lump should develop or any signs and symptoms of infection please contact our office. May remove dressing tomorrow. Follow-Up: Follow up with Dr. Esparza as scheduled. follow up with Ashley Christie Diet: Cardiac Diet Resume coumadin repeat INR on Tuesday Special Instructions: Discharge Provider: BANG Gonzales Attending: Singh Chaves MD Time: 14:54 Nurse's Instructions Moderate Sedation WHAT YOU NEED TO KNOW: Moderate sedation, or conscious sedation, is medicine used during procedures to help you feel relaxed and calm. You will be awake and able to follow directions without anxiety or pain. You will remember little to none of the procedure. Moderate sedation can be used for procedures such as a colonoscopy, wound repair , cataract removal, or dental work. The medicine is given as a pill, shot, inhaled solution, or injection through an IV. DISCHARGE INSTRUCTIONS: Self-care: Ask when you can drive a car or use heavy equipment. An adult should drive you home and stay with you. You may feel sleepy and need help doing things at home. Follow your healthcare provider's directions about eating, activity, and medicines. Do not makeimportant decisions for 24 hours. Follow up with your healthcare provider as directed: Write down your questions so you remember to ask them during your visits. Contact your healthcare provider if: You have a fever. You have a cough or headache. You have an upset stomach or feel like vomiting. You have questions or concerns about your condition or care. Seek care immediately or call 911 if: You have sudden trouble breathing. You have a severe headache. 2016 [employer]. Information is for End User's use only and may not be sold, redistributed or otherwise used for commercial purposes. All illustrations and images included in CareNotes are the copyrighted property of [employer]. or [employer]. The above information is an director of student financial aid only. It is not intended as medical advice for individual conditions or treatments. Talk to your doctor, nurse or pharmacist before following any medical regimen to see if it is safe and effective for you. After Heart Catheterization BOTTLE CAPPING MACHINE OPERATOR: Call 911 for any of the following: You have any of the following signs of a heart attack: Squeezing, pressure, or pain in your chest that lasts longer than 5 minutes or returns Discomfort or pain in your back, neck, jaw, stomach, or arm Trouble breathing Nausea or vomiting Lightheadedness or a sudden cold sweat, especially with chest pain or trouble breathing You have any of the following signs of a stroke: Numbness or drooping on one side of your face Weakness in an arm or leg Confusion or difficulty speaking Dizziness, a severe headache, or vision loss You feel lightheaded, short of breath, and have chest pain. You cough up blood. You have trouble breathing. You cannot stop the bleeding from your wound even after you hold firm pressure for 10 minutes. Seek care immediately if: Blood soaks through your bandage. Your arm or leg feels numb, cool, or looks pale. Your wound gets swollen quickly. Contact your healthcare provider if: You have a fever or chills. Your wound is red, swollen, or draining pus. Your wound looks more bruised or you have new bruising on the side of your leg or arm. You have nausea or are vomiting. Your skin is itchy, swollen, or you have a rash. You have questions or concerns about your condition or care. Medicines: You may need any of the following: Blood thinners help prevent blood clots. Examples of blood thinners include heparin and warfarin. Clots can cause strokes, heart attacks, and . The following are general safety guidelines to follow while you are taking a blood thinner: Watch for bleeding and bruising while you take blood thinners. Watch for bleeding from your gums or nose. Watch for blood in your urine and bowel movements. Use a soft washcloth on your skin, and a soft toothbrush to brush your teeth. This can keep your skin and gums from bleeding. If you shave, use an electric shaver. Do not play contact sports. Tell your dentist and other healthcare providers that you take anticoagulants. Wear a bracelet or necklace that says you take this medicine. Do not start or stop any medicines unless your healthcare provider tells you to. Many medicinescannot be used with blood thinners. Tell your healthcare provider right away if you forget to take the medicine , or if you take toomuch. Acetaminophen helps decrease pain and fever. This medicine is available without a doctor's order. Ask how much medicine is safe to take, and how often to take it. Acetaminophen can cause liver damage if not taken correctly. Take your medicine as directed. Call your healthcare provider if you think your medicine is not helping or if you have side effects. Tell him if you are allergic to any medicine. Keep a list of the medicines, vitamins, and herbs you take. Include the amounts, and when and why you take them. Bring the list or the pill bottles to follow-up visits. Carry your medicine list with you in case of an emergency. Bathing: You may be able to shower the day after your procedure. Remove your pressure bandage before you shower. Do not take baths or go in hot tubs or pools. Carefully wash the wound with soap and water. Pat the area dry. Care for your wound as directed: Change your bandage when it gets wet or dirty. A small bandage canbe placed on your wound after you remove the pressure bandage. Do not put powders, lotions, or creams on your wound. They may cause your wound to get infected. Monitor your wound every day for signs ofinfection, such as redness, swelling, or pus. Mild bruising is normal and expected. If bleeding from your wound occurs: Apply firm, steady pressure to stop the bleeding. Apply pressure with a clean gauze or towel for 5 to 10 minutes. Call 911 if bleeding becomes heavy or does not stop. Activity: Do not lift anything heavier than 5 pounds until directed by your healthcare provider. Heavy lifting can put stress on your wound and cause bleeding. Do not push or pull with the arm that was used for the procedure. Do not do vigorous activity for at least 48 hours. Vigorous activity may cause bleeding from your wound. Rest and do quiet activities. Short walks to the bathroom and around the house are okay. Limit your stair climbing to prevent bleeding. Ask your healthcare provider when you can return to your normal activities. Do not strain when you have a bowel movement: Your wound may bleed if you strain to have a bowel movement. Keep your legs flat on the floor and your hips at a 90 angle. Talk to your healthcare provider if you are constipated. You may need medicine to make it easier for you to have a bowel movement and to prevent straining. Drink liquids as directed: Liquids will help flush the contrast liquid from your body. Ask how muchliquid to drink each day and which liquids are best for you. Driving: No driving today, unless otherwise instructed. Returning to work: You may not be able to return to work for at least 2 days after your procedure if your job involves heavy lifting. Ask your healthcare provider when it is okay for you to return to work. 2016 [employer]. Information is for End User's use only and may not be sold, redistributed or otherwise used for commercial purposes. All illustrations and images included in CareNotes are the copyrighted property of [employer] or [employer]. The above information is an director of student financial aid only. It is not intended as medical advice for individual conditions or treatments. Talk to your doctor, nurse or pharmacist before following any medical regimen to see if it is safe and effective for you. For questions or concerns regarding your discharge instructions, you may call the Town Administrator at [phone] Mon-Fri 7a-5p to speak with a RN. *Please Return Patient Satisfaction Survey* documented in this encounter Plan of Treatment Date Type Specialty Care Team Description 07/04/2019 AntiCoag Anticoagulation 07/04/2019 Office Visit Cardiology Tanmay Esparza MD [address] [place] [address] 08/10/2019 Office Visit Family Practice Ashley Christie MD [address] [place] [address] Health Maintenance Due Date Last Done Comments [...] 140/90 Pressure (06/29/2019 Ashley Messina, 6:58 AM EDT) Note: This is an individualized [...] 7.0 Diabetes 9.1 (06/06/2019 2:32 No Ashley Crhistie PM EDTDaphney Messina MD Note: This is [...] Ashley Christie mo max (lbs) >= 10 ZOTDaphney ARANDA Note: This is an individualized lifestyle goal for Jitendra Ann: Your body mass index (BMI) is more than 30. You should lose weight. A reasonable starting goal is to lose 10 pounds. Displayed above is how many pounds you have lost thus far towards your 10 pound weight loss goal. Keep immunizations current Lifestyle Ashley Roberts MD Note: This is an individualized lifestyle [...] ongoing basis. documented as of this encounter Procedures Procedure Name Priority Date/Time Associated Diagnosis Comments CORONARY ANGIOGRAPHY Routine 06/28/2019 2:48 Abnormal Results for this PM EDT cardiovascular procedure are in function study the results section. CATHETERIZATION HEART Routine 06/28/2019 2:48 Abnormal Results for this LEFT PM EDT cardiovascular procedure are in function study the results section. SIGN PERMIT 06/28/2019 12:00 PM EDT documented in this encounter Results CARDIAC CATHETERIZATION (06/28/2019 2:48 PM EDT) Specimen Narrative Performed At Non-obstructive coronary artery disease. [facility] High normal LV filling pressures Performing Organization Address City/State/Zipcode Phone Number [facility] [address] [place] [address] documented in this encounter Visit Diagnoses Diagnosis Abnormal cardiovascular function study Nonspecific abnormal unspecified cardiovascular function study documented in this encounter Administered Medications Medication Order MAR Action Action Date Dose Rate Site FentaNYL (PF) (SUBLIMAZE) Given 06/28/2019 2:19 PM EDT 25 mcg injection (PF) INTRAOP, Starting Lesley 06/28/19 at 1417, Until Lesley 06/28/19 at 1840, 3 Intra-Operative Given 06/28/2019 2:17 PM EDT 25 mcg heparin injection 5000 UNIT/ML Given 06/28/2019 2:25 PM EDT 5,000 Units INTRAOP, Starting Lesley 06/28/19 at 1425, Until Lesley 06/28/19 at 1840, 3 Intra-Operative midazolam (VERSED) injection Given 06/28/2019 2:19 PM EDT 1 mg INTRAOP, Starting Lesley 06/28/19 at 1417, Until Lesley 06/28/19 at 1840, 3 Intra-Operative Given 06/28/2019 2:17 PM EDT 1 mg verapamil (CALAN) IV injection Given 06/28/2019 2:21 PM EDT 5 mg INTRAOP, Starting Lesley 06/28/19 at 1421, Until Lesley 06/28/19 at 1840, 3 Intra-Operative documented in this encounter documented as of this encounter Advance Directives Code Status Date Activated Date Inactivated Comments Full Code 06/28/2019 11:36 AM Does the patient have decision making capacity? Yes Order was discussed with: Patient I discussed all options and patient/surrogate requested and agreed to: Full Code
[2019-08-25] MEDS ORDERED: Metoprolol Succinate XL TAB* 50 MG PO ONE (20:51)
[2019-08-25] MEDS ORDERED: Albuterol 2.5 MG/3 ML NEB.SOL* (0.083%) INH PRN (20:57)
[2019-08-25] MEDS ORDERED: Ondansetron INJ* 2 MG/ML VIAL IV PRN (20:57)
[2019-08-25] MEDS ORDERED: Acetaminophen TAB* 325 MG PO PRN (20:57)
[2019-08-25] MEDS ORDERED: Dextrose 50% VIAL 50 ml IV PUSH PRN (21:03)
[2019-08-25] MEDS ORDERED: Albuterol HFA INHALER* 8 gm MDI INH PRN (21:05)
[2019-08-25] MEDS ORDERED: Potassium Chlor TAB* 20 MEQ TAB.ER PO ONE (21:06)
[2019-08-25] MEDS ORDERED: Insulin GLARGINE(*) 1 UNITS UNIT SUBCUT SCH (22:00)
[2019-08-25 23:10] LABS: Troponin I 0.38 ng/mL (<0.04)
[2019-08-25] MEDS: Clotrimazole 1% CREAM* 30 GM TOPICAL SCH (23:19)
[2019-08-25] MEDS: Ammonium Lactate 12% 1 APPLIC TUBE TOPICAL SCH (23:19)
--- NOTE | 2019-08-26 00:53 | HP ---
CC: Dr. Christie; Stephanie Gleason * MEDICINE HISTORY AND PHYSICAL: DATE OF ADMISSION: 08/25/19. ATTENDING PHYSICIAN: Dr. Darci Thomas * (dictated by Elizabeth Rutherford NP). PRIMARY CARE PROVIDER: Dr. Ashley Christie. OUTPATIENT DUCK FARMER: Dr. Esparza. CONSULTING DUCK FARMER: Dr. Cat Eaton. CHIEF COMPLAINT: Ventricular tachycardia. HISTORY OF PRESENT ILLNESS: Mr. Ann is a 43-year-old male who arrived by EMS Services today with concern for V-tach, seen on telemetry per EMS. Mr. Ann is alert and able to provide history at the time of my assessment. He reports that today he had plan to go to [facility] with his girlfriend and her children. This morning, he held on taking his metoprolol and his furosemide as he was concerned for having side effects from taking water pills. He states he thought the metoprolol was one of the medications that made him urinate more. He states that they had difficulty managing the trail and walking up to the falls and began to walk back towards the truck. They stopped at the picnic table at the bottom of the falls and at that time, he had a dizzy spell. At some point, he blacked out and fell into the grass. He states he woke up at some point and stood up and sat down on the picnic bench and reported that he felt slightly better, but still was dizzy. He reported that his chest felt a little tight. Denies actually having chest pain. At this point, EMS services came and put him on the court recording monitor and noted that he was in V-tach. He states that they gave him medicine, which was not helpful. He did not actually start to feel better until he came to the hospital and received the lidocaine. At that point, he states that his nausea that he was experiencing also resolved. In review of the ER records and report from the ER staff, he arrived responsive and mentally stable. He had been given amiodarone 150 mg and was given an additional 100 mg of amiodarone upon arrival as well as 2 g of magnesium. Again , he received 200 of lidocaine with improvement in heart rate and symptoms. Mr. Ann states that he was diagnosed with atrial fibrillation a few months ago and that his implementation project coordinator was working on getting him in for cardioversion which is planned for 09/04/19. He states he was taking extra Coumadin in order to get his INR higher than average and states that the goal was to be above 4. He also reports that he had a procedure done with a scope where they looked at his heart. Upon further conversation, he states that this procedure was actually done via his right wrist where they went in with a camera and looked around. He states that when they looked, he was told that everything was clear and that he just had a little plaque which they were planing to manage with medications and diet modifications. Of note, Mr. Ann had a leukocytosis of 19,300 and an INR of 4.63 when labs were checked after arrival to the ER. Glucose was 369, initial troponin 0.00, BNP 63. PAST MEDICAL HISTORY: Includes: 1. Type 2 diabetes, on insulin, with diabetic neuropathy. 2. Hypertension. 3. Atrial fibrillation. 4. Hyperlipidemia. 5. Morbid obesity. HOME MEDICATIONS: 1. Albuterol 1 puff inhaled q.4 hours p.r.n. 2. Spironolactone 25 mg daily. 3. Metoprolol succinate XL 50 mg daily. 4. Steglatro 1 tab daily. 5. Furosemide 40 mg daily. 6. Warfarin 5 mg tablet. He takes 3 tablets which would equal 15 mg on Tuesday , Tuesday and Tuesday and 2.5 tablets to equal 12.5 mg on Tuesday, , Tuesday and Tuesday. 7. Insulin Basaglar 75 units daily. 8. Glimepiride 4 mg b.i.d. 9. Gabapentin 300 mg at bedtime. 10. Atorvastatin 10 mg daily. 11. Lisinopril 20 mg daily. ALLERGIES: METFORMIN. FAMILY HISTORY: He reports that his father has hypertension and a history of previous CVA. He is unaware of his mother's history as he did not know his mother. SOCIAL HISTORY: Denies tobacco use. He quit 10 years ago, having smoked for 5 to 7 years. Reports no alcohol use recently. Reports rare marijuana use, perhaps very few months if he has extensive pain. 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 His father, Shekhar Ann is her surrogate decision maker in the event of an emergency. REVIEW OF SYSTEMS: General: He denies any fever, cold or flu symptoms, headaches. HEENT: He denies any changes to his vision, hearing, sore throat, sinusitis. Cardiac: He denies any chest pain or edema. He denies orthopnea. He does report occasional fluttering in his chest, but he did not experience this today. Respiratory: He denies any shortness of breath, cough, wheezing, or hemoptysis. GI: He denies recent abdominal pain, although he did say that during his time in the ambulance, he had a strange sensation in his abdomen that went away when they administered the lidocaine. Again, he had nausea that also resolved with lidocaine. He denies any diarrhea, constipation. He does have an umbilical hernia that was reducible. Genitourinary: He denies any dysuria or hematuria. Neuro: He reports some neuropathy, but denies any focal weakness or sensory loss. Musculoskeletal: Denies any joint pain, muscle pain. Skin: Denies any rashes or lesions. Psych: Denies any suicidal ideation, depression or anxiety. PHYSICAL EXAMINATION GENERAL: This is a very pleasant 43-year-old male seen lying in the ED stretcher, in no apparent distress. VITAL SIGNS: Temperature 97.7, heart rate ranging from 84 to 99, respiratory rate 18, blood pressure 106/65, and O2 saturation is 100% on 2 L nasal cannula. HEENT: Head is atraumatic and normocephalic. Pupils are equal, round, reactive to light and accommodation. Extraocular movements are intact. Sclerae anicteric. Oral mucosa is moist and without oropharyngeal erythema or exudate. NECK: With full range of motion, supple. No JVD noted. No lymphadenopathy appreciated. LUNGS: Clear to auscultation. CARDIAC: Mildly tachycardic but for the most part rate controlled, irregularly irregular. No murmur appreciated. Radial pulses are present and symmetrical, 2 + with brisk capillary refill to the upper extremities. Pedal pulses are present, 1+ bilaterally with capillary refill less than 3 seconds to the lower extremities. No peripheral edema noted. ABDOMEN: Soft, protuberant, nontender. There is reducible umbilical hernia. There is no guarding or rebound tenderness. Bowel sounds are present. MUSCULOSKELETAL: There is no clubbing or cyanosis. There is active range of motion in all 4 extremities and he is able to push up and get up independently. NEURO: He is alert and oriented. Cranial nerves II through XII are grossly intact. He moves all extremities. No focal deficits. SKIN: Chronic venous changes noted to the bilateral lower extremities. There is evidence of fungal infection of the toes. Feet is otherwise warm and dry. LABORATORY DATA AND DIAGNOSTIC STUDIES: CBC: WBC 19.3, hemoglobin 14.1, hematocrit 44, platelet count 235,000. INR 4.63. CMP: Sodium 134, potassium 3.9, chloride 100, carbon dioxide 24, BUN 16, creatinine 1.07, glucose 369. Calcium 8.6, magnesium 2.5. Total bilirubin 0.5, AST 15, ALT 17, alk phos 84. Troponin 0.00, BNP 63. Chest x-ray reviewed. No acute pulmonary process noted. EKG reviewed. Currently in atrial fibrillation at a rate of [address] recording monitor. His rate is now between 84 and 99. Old medical records are reviewed. ASSESSMENT AND PLAN: This is a 43-year-old male with a past medical history significant for atrial fibrillation, hypertension, type 2 diabetes, hyperlipidemia, and morbid obesity, who presents today in ventricular tachycardia and status post conversion to atrial fibrillation. We will admit him for further observation to the telemetry floor. Plan is as follows. 1. Ventricular tachycardia. Mr. Ann denies any previous history of this. He follows with Stephanie and I have requested his records from his PCP and his implementation project coordinator which can hopefully be obtained tomorrow. He did miss his dose of metoprolol today, which we will replace now. He is rate controlled. We will continue him on his metoprolol at this time and check an echocardiogram. We have requested cardiology consult and they will see him tomorrow. He is currently stable at his baseline and asymptomatic. Given that he did have syncope and his INR is elevated, I will check a CT of the brain as he is sure that he did pass out and hit his head, but does not think he hit his head very hard. However, with his supratherapeutic INR, we would like to rule out any head injury. We will also give him a small dose of potassium to keep his potassium level above 4 and his magnesium above 2. 2. Supratherapeutic INR. Again, his INR is 4.63. He states that his goal was to have his INR above 4, which does seem high and unusual. He states that they are aiming for higher INR than normal in anticipation of his cardioversion next week on 09/04/19. I do not think he needs vitamin K but we will hold his INR as it is higher than recommended and recheck tomorrow and adjust his warfarin dose accordingly. 3. Leukocytosis. Likely a stress response that is secondary to ventricular tachycardia; recheck CBC tomorrow. CXR reviewed and without acute process. Check UA. Monitor for other signs/symptoms of infection. 4. Type 2 diabetes. Check HgbA1c. Hold home Steglatro and glimeperide. Change home Lantus to slightly lower dose, add Lispro sliding scale insulin and adjust accordingly. Continue consistent carbohydrate diet. Continue gabapentin for diabetic neuropathy. 5. Hypertension. Currently under good control, following recent interventions. Give home metoprolol dose now and restart medication tomorrow. Continue other home medications with hold parameters. Teaching provided to patient regarding purpose of metoprolol. We reviewed which medications are diuretics. 6. Atrial fibrillation. Currently in atrial fibrillation but rate controlled. Due for cardioversion in August, continue metoprolol. Warfarin on hold as per above. 7. Hyperlipidemia. Continue statin. 8. FEN. Consistent carbohydrate diet. 9. DVT Prophylaxis. Encourage ambulation, may have SCDs. Warfarin on hold as he is supratherapeutic. 10. Code Status: Full Code Time spent: Approximately 70 minutes was spent on this admission, with greater than half that time spent face to face with the patient obtaining history and physical, performing the physical examination, and reviewing the plan of care. Plan of care was also reviewed with my attending, Dr Thomas, who is in agreement. ELIZABETH RUTHERFORD, MORTGAGE LOAN ORIGINATOR [id number]/CPS #: [id number] AQUILES
[2019-08-26 01:55] LABS: Troponin I 0.81 ng/mL (<0.04)
--- NOTE | 2019-08-26 02:41 | PN ---
Hospitalist Progress Note Date of Service: 08/26/19 Noticed an increase in troponin will add heparin drip for now. And follow up cardiology input in AM.
[2019-08-26] MEDS ORDERED: Heparin DRIP 25,000 UNITS(*) 25,000 UNITS/500 ML BAG IV SCH (02:45)
[2019-08-26] MEDS ORDERED: Heparin VIAL(*) 5000 UNITS/ML VIAL (FIVE THOUSAND) IV SCH (03:00)
[2019-08-26 06:04] LABS: ABS Lymphocytes 1.6 10^3/ul (1.0-4.8); ABS Monocytes 1.1 10^3/ul (0-0.8); ABS Neutrophils 11.8 10^3/ul (1.5-7.7); Eosinophil % 0.1 %; Hematocrit 40 % (42-52); Hemoglobin 13.1 g/dL (14.0-18.0); Lymphocyte % 10.9 %; Mean Corpuscular HGB Conc 33 g/dL (31-36); Mean Corpuscular Hemoglobin 27 pg (27-31); Mean Corpuscular Volume 83 fL (80-94); Mean Platelet Volume 9.1 fL (7.4-10.4); Platelet Count 187 10^3/uL (150-450); Red Blood Count 4.83 10^6 /uL (4.18-5.48); Red Cell Distribution Width 16 % (10-15); White Blood Count 14.5 10^3/uL (3.5-10.8)
[2019-08-26 06:11] LABS: Activated Partial Thrombo Time 51.7 seconds (26.0-38.0); INR 3.75 (0.82-1.09)
[2019-08-26 06:25] LABS: Anion Gap 4 mmol/L (2-11); BUN/Creatinine Ratio 20.8 (8-20); Blood Urea Nitrogen 15 mg/dL (6-24); CO2 Carbon Dioxide 30 mmol/L (22-32); Calcium 8.7 mg/dL (8.6-10.3); Chloride 104 mmol/L (101-111); EGFR African American 145.6 (>60); EGFR Non-African American 120.3 (>60); Glucose 78 mg/dL (70-100); Potassium 4.2 mmol/L (3.5-5.0); Sodium 138 mmol/L (135-145)
[2019-08-26 06:46] LABS: Troponin I 0.79 ng/mL (<0.04)
[2019-08-26] MEDS ORDERED: Perflutren Lipid Microsphere* 3 ML VIAL ONE (07:34)
[2019-08-26] MEDS: Insulin LISPRO* 1 UNITS UNIT SUBCUT SCH ×2 (08:27→12:48)
[2019-08-26] MEDS: Clotrimazole 1% CREAM* 30 GM TOPICAL SCH (08:37)
[2019-08-26] MEDS: Ammonium Lactate 12% 1 APPLIC TUBE TOPICAL SCH (08:38)
[2019-08-26] MEDS ORDERED: Furosemide TAB* 40 MG PO SCH (09:00)
[2019-08-26] MEDS ORDERED: Atorvastatin* 10 MG TAB PO SCH (09:00)
[2019-08-26] MEDS ORDERED: Lisinopril TAB* 10 MG PO SCH (09:00)
[2019-08-26] MEDS ORDERED: Spironolactone TAB* 25 MG PO SCH (09:00)
[2019-08-26] MEDS ORDERED: Metoprolol Succinate XL TAB* 50 MG PO SCH (09:00)
[2019-08-26 09:45] LABS: Urine Appearance Clear; Urine Bilirubin Negative (Negative); Urine Blood Negative (Negative); Urine Color Yellow; Urine Glucose 2+(150 mg/dL) (Negative); Urine Ketones Negative (Negative); Urine Nitrite Negative (Negative); Urine Protein Negative (Negative); Urine Specific Gravity 1.026 (1.010-1.030); Urine Urobilinogen Negative (Negative)
--- NOTE | 2019-08-26 09:58 | ECHO ---
*[facility]* [place] [address] Fax #: [phone] Transthoracic Echocardiogram Patient: Jitendra Ann : 1975 Study Date: 08/26/2019 Age: 43 Gender: M HR: 58 bpm Height: 76 in /193 cm BSA: 3.05 m^2 Weight: 424.1 lb /192.8 kg BMI: 51.7 kg/m^2 *International Controller: * Kiana Rosen [facility] *Referring Physician: * Kenya Rutherford *Reading Physician: * Cat Eaton MD Indications: Syncope. History: Atrial fibrillation. Risk factors: Hypertension. Diabetes mellitus. Morbidly obese. Dyslipidemia. Conclusions Summary: - Procedure narrative: Image quality was poor. Adequate endocardial imaging with contrast. - Left ventricle: The cavity size is normal. Wall thickness is mildly to moderately increased. Systolic function is reduced. The estimated ejection fraction is 45-50%. - Right ventricle: The cavity size is at the upper limits of normal. Systolic function is mildly reduced. - Aorta: The ascending aorta internal dimension in the A-P direction, maximal systolic dimension is 3.8 cm. - All valves appear grossly structurally normal with normal function. - Ascending aorta: The ascending aorta is mildly dilated. - No prior echocardiogram available to compare. Study data: Transthoracic echocardiogram. Procedure: Transthoracic echocardiography was performed. Image quality was poor. Intravenous Definity , 2 mlswas administered. Image enhancement administered by Marcelle Greenfield RN. Complete 2D, spectral Doppler, and color flow Doppler. Location: Bedside. Patient status: Inpatient. Patient room number: 446 02. Rhythm: Atrial fibrillation. Findings Left ventricle: The cavity size is normal. Wall thickness is mildly to moderately increased. Systolic function is reduced. The estimated ejection fraction is 45-50%. Although no diagnostic regional wall motion abnormality is identified, this possibility cannot be completely excluded on the basis of this study. Left ventricular diastolic function parameters are indeterminate. Right ventricle: The cavity size is at the upper limits of normal. Systolic function is mildly reduced. Left atrium: The atrium is normal in size. Right atrium: The atrium is mildly dilated. Mitral valve: The leaflets are normal thickness. There is no evidence of stenosis. There is no significant regurgitation. Aortic valve: Not well visualized. There is no evidence of stenosis. There is no significant regurgitation. Tricuspid valve: The leaflets are normal thickness. There is no evidence of stenosis. There is no significant regurgitation. Pulmonic valve: Not well visualized. There is no significant regurgitation. Aorta: Aortic root: The aortic root is mildly dilated. Ascending aorta: The ascending aorta is mildly dilated. Aortic arch: The aortic arch is appears normal. Pericardium: There is no significant pericardial effusion. Pulmonary arteries: Not well visualized. Systemic veins: Inferior vena cava: The vessel is dilated. There is (< 50%) respiratory change in the IVC dimension. Measurements Left ventricle Value Ref Mitral valve Value Ref SUDEEP, LAX (L) 4.0 cm 4.2 - 5.8 Peak E 1.02 m/sec ---- ESD, LAX 3.8 cm 2.5 - 4.0 Peak A 0.02 m/sec ---- FS, LAX (L) 5 % 25 - 43 Decel time 183 ms ---- PW, ED, LAX (H) 1.9 cm 0.6 - 1.0 Peak grad, D 4.2 mm Hg ---- E', med raghu, TDI 9.2 cm/sec >=7.0 Peak E/A ratio 48.6 ---- E/e', med raghu, 11 TDI Pulmonic valve Value Ref Peak v, S 0.73 m/sec ---- LVOT Value Ref Peak grad, S 2.0 mm Hg ---- Peak pratik, S 0.84 m/sec Aortic root Value Ref Ventricular septum Value Ref Root diam 3.9 cm <4.9 IVS, ED, LAX (H) 1.4 cm 0.6 - 1.0 Ascending aorta Value Ref Right ventricle Value Ref AAo AP diam, S 3.8 cm ---- SUDEEP minor ax, 3.5 cm 1.9 - 3.5 A4C mid Aortic arch Value Ref Diam bet innom, LCC 3.0 cm ---- Left atrium Value Ref AP dim, ES (H) 5.80 cm 3.00 - Decending aorta Value Ref 4.00 Mulu peak pratik 1.14 m/sec ---- ML dim, A4C 3.7 cm SI dim, A4C 5.6 cm Inferior vena cava Value Ref Vol/bsa, ES, A/L 23 ml/m^2 16 - 34 Diam 2.6 cm ---- Right atrium Value Ref SI dim, ES (H) 5.6 cm 3.4 - 5.3 ML dim, ES, A4C 4.3 cm 2.6 - 4.4 Aortic valve Value Ref Peak v, S 1.4 m/sec Peak grad, S 8.0 mm Hg Legend: (L) and (H) mildred values outside specified reference range. Prepared and electronically signed by Cat Eaton MD 08/26/2019 09:57
[2019-08-26 10:32] LABS: Troponin I 0.59 ng/mL (<0.04)
--- NOTE | 2019-08-26 10:47 | PN ---
Subjective Date of Service: 08/26/19 Interval History: Admitted yesterday for VT. Pt medically converted in ER and reports feeling well now. Overnight felt "flutters" in his chest, which he reports is his baseline since being diagnosed with afib. Also started on heparin gtt overnight given elevated troponin, but discontinued after INR resulted still supratherapeutic. Objective Active Medications: Acetaminophen (Tylenol Tab*) 650 mg PO Q4H PRN PRN Reason: MILD PAIN or TEMP > 100.4 Albuterol (Ventolin Hfa Inhaler*) 1 puff INH Q4H PRN PRN Reason: SOB/WHEEZING Ammonium Lactate (Lac-Hydrin 12 %) 1 applic TOPICAL BID [facility] Last Admin: 08/26/19 08:38 Dose: 1 applic Atorvastatin Calcium (Lipitor*) 10 mg PO DAILY [facility] Last Admin: 08/26/19 08:37 Dose: 10 mg Clotrimazole (Clotrimazole 1%*) 1 applic TOPICAL BID [facility] Last Admin: 08/26/19 08:37 Dose: 1 applic Dextrose (Dextrose 50% Vial 50 Ml*) 25 ml IV PUSH .FOR FS < 60 - SS PRN PRN Reason: FS < 60 Furosemide (Lasix Tab*) 40 mg PO DAILY [facility] Last Admin: 08/26/19 08:37 Dose: 40 mg Gabapentin (Neurontin Cap(*)) 300 mg PO BEDTIME [facility] Heparin Sodium (Porcine) (Heparin Vial(*)) 0 units IV .PER PROTOCOL [facility] Insulin Glargine (Lantus(*)) 50 units SUBCUT Q24H [facility] Last Admin: 08/25/19 22:32 Dose: 50 units Insulin Human Lispro (Humalog*) 0 units SUBCUT [facility]; Protocol Last Admin: 08/26/19 08:27 Dose: Not Given Lisinopril (Prinivil Tab*) 20 mg PO DAILY [facility] Last Admin: 08/26/19 08:37 Dose: 20 mg Metoprolol Succinate (Toprol Xl Tab*) 50 mg PO DAILY [facility] Last Admin: 08/26/19 08:37 Dose: 50 mg Ondansetron HCl (Zofran Inj*) 4 mg IV Q6H PRN PRN Reason: NAUSEA/VOMITING Spironolactone (Aldactone Tab*) 25 mg PO DAILY [facility] Last Admin: 08/26/19 08:37 Dose: 25 mg Vital Signs - 8 hr 08/26/19 03:15 Temperature 97.7 F Pulse Rate 73 Respiratory 16 Rate Blood Pressure 101/54 (mmHg) O2 Sat by Pulse 97 Oximetry Oxygen Devices in Use Now: None Appearance: well-appearing man in NAD, sitting at side of bed, pleasant and interactive, malodorous Eyes: No Scleral Icterus Ears/Nose/Mouth/Throat: NL Teeth, Lips, Gums, Clear Oropharnyx Neck: NL Appearance and Movements; NL JVP, Trachea Midline Respiratory: Symmetrical Chest Expansion and Respiratory Effort, Clear to Auscultation Cardiovascular: - - irregularly irregular, no mgr Abdominal: NL Sounds; No Tenderness; No Distention Extremities: No Edema Skin: No Rash or Ulcers Neurological: Alert and Oriented x 3 Result Diagrams: 08/26/19 05:40 08/26/19 05:41 Assess/Plan/Problems-Billing Assessment: Mr. Ann is a 43 year old morbidly obese man with DM2 on insulin, KYM on CPAP , afib on warfarin, HTN, who presents with VT s/p medical conversion, found with elevated troponin. - Patient Problems (1) Ventricular tachyarrhythmia Comment: s/p amiodarone, magnesium, and lidocaine in ER, with conversion to afib. Likely from withholding metoprolol. - cardiology consult pending - maintain on telemetry - monitor electrolytes, replete as needed (2) Atrial fibrillation Comment: - cont on warfarin - cont home metoprolol (3) Diabetes Comment: - cont home glargine, add lispro sliding scale (4) KYM (obstructive sleep apnea) Comment: cont home CPAP (5) Hypertension Comment: - cont home lisinopril, spironolactone, beta-jeramie (6) Morbid obesity Comment: BMI 53 - plugged in with CCHL, pending bariatric surgery
[2019-08-26] MEDS ORDERED: Metoprolol Succinate XL TAB* 25 MG PO ONE (11:12)
--- NOTE | 2019-08-26 11:17 | PN ---
Cardiology Progress Note Date of Service: 08/26/19 - CC:VT see dictation for full consult. VT off BB and with exertion. Cath per verbal with Dr Murray May 2019 showed mild to moderate CAD LAD and RCA on MM. Obese, DM, HTN, KYM, Chol, persistant AF. Echo today: no focal WM abnormalities, EF 45-50% (prior via [place] in May was 50%). Based on my exam/evaluation and coordination with Dr Murray: Treat VT with resumption of BB, increase to 75 mg/day. Avoid excessive exertion for now. Early f/u this week with Dr Murray.
[2019-08-26 12:55] VITALS: BP 114/63
--- NOTE | 2019-08-26 13:45 | CONS ---
CC: Dr. Tanmay Esparza; Stephanie Braswell; Hospitalist, [facility] * CONSULTATION NOTE: DATE OF CONSULT: 08/26/19 REASON FOR CONSULTATION: Ventricular tachycardia and AFib. HISTORY OF PRESENT ILLNESS: Mr. Ann is a very nice 43-year-old gentleman followed by Dr. Esparza with a history of AFib as well as multiple atherosclerotic risks. The patient has been in AFib for several months. He tells me he has plans for cardioversion with Dr. Esparza on 09/04/19. The patient has been in stable health. The patient did not take his metoprolol yesterday morning, says he did not completely understand instructions surrounding metoprolol use. He and his girlfriend went for a hike in [facility], and he acutely became very dizzy, was walking to sit down and then fell to the ground. He says it was near syncope because he could hear people, but could not respond. He does not think he completely lost consciousness. According to admission note, there is documentation that he did black out. fancy wire drawer were called and was found in wide- complex tachycardia consistent with ventricular tachycardia, initially was given amiodarone and at [facility] received lidocaine with successful chemical cardioversion per verbal reports. The patient denied ever feeling chest pain. Again, he was very very dizzy, he had some nausea. Overnight, the patient states he feels well and currently feels back to himself , rare awareness of heart rhythm that he has had since his diagnosis of AFib. PAST MEDICAL HISTORY: 1. The patient has a past medical history of persistent AFib. 2. Coronary artery disease, cath 06/19/19 showed 30% to 40% proximal LAD occlusion, 20% mid right coronary artery occlusion, 40% distal right coronary artery occlusion. 3. Borderline cardiomyopathy, ejection fraction 50% on Brown echo 06/13/19. 4. Morbid obesity. 5. Type 2 diabetes. 6. Hypertension. 7. Dyslipidemia. 8. Obstructive sleep apnea, on CPAP. MEDICATIONS: Outpatient medications include: 1. Coumadin. 2. Albuterol. 3. Spironolactone. 4. Toprolol-XL 50 mg a day. 5. Steglatro 6. Lasix 40 mg a day. 7. Insulin 75 units a day. 8. Glimepiride 4 mg b.i.d. 9. Neurontin 40 mg q.h.s. 10. Lipitor 10 mg a day. 11. Lisinopril 10 mg a day Inpatient medications include: 1. Ventolin inhaler 1 puff q.4 hours p.r.n. 2. Aluminum lactate topical. 3. Lipitor 10 mg a day. 4. Clotrimazole topical. 5. Lasix 40 mg a day. 6. Neurontin 300 mg q.h.s. 7. Glargine insulin 50 units subcu q.24 hours. 8. Lispro insulin p.r.n. 9. Lisinopril 20 mg a day. 10. Toprol-XL 50 mg a day. 11. Zofran p.r.n. 12. Aldactone 25 mg a day. ALLERGIES/INTOLERANCE: Include METFORMIN. FAMILY HISTORY: Positive for hypertension and stroke with his father. He is estranged from his mother and history on his mother's side of the family is unavailable. SOCIAL HISTORY: The patient is currently disabled. He has been disabled from December of this year, he says due to his hypoxia. He stopped smoking 10 years ago. He smokes occasional marijuana for pain control. Denies any other recreational drug use. No recent alcohol abuse, but did abuse alcohol in the past. REVIEW OF SYSTEMS: Negative for chest pain with walking. Until this event, he had no acute changes in his care. He denied recent fevers, chills, sweats, coughing, hematuria, dysuria, change of bowel or bladder habits of any sort. The patient did state he had one other similar episode, less pronounced, a couple of months ago which responded to using his oxygen again. All other 14 point review of systems was negative. PHYSICAL EXAM: The patient is 6 feet 4 inches, weighs 435 pounds with a BMI of 53. Current Vital Signs: Blood pressure 101/54, pulse is 73. He is afebrile, respiratory rate is 16, oxygen on room air 97%. General Appearance: Tall, but super morbidly obese middle-aged gentleman, lying in bed at 40 degrees, appearing comfortable. Psychologically pleasant and cooperative. Neurologically awake, alert, oriented to person, place, and time. Grossly normal sensory and motor function on bed exam. Skin: Warm, dry. No appreciable cyanosis. Lower Extremities: Show brawny stippling consistent with chronic venous insufficiency. He has a Mediterranean complexion. HEENT: Pupils are equal and round. Mucous membranes are moist. Neck: Thick from obesity, but no appreciable increase in JVP. Good carotid pulses, no audible bruits and no thyromegaly. Breath sounds somewhat distant from obesity but clear. No wheezes, rales, or rhonchi. Coronary: Also distant S1, S2. Irregularly irregular without murmurs or rubs. Abdomen: Very overweight, nontender, normal bowel sounds. No obvious hepatosplenomegaly but difficult exam. Lower Extremities: Thin, again brawny discoloration below the knee, but no appreciable edema now. DIAGNOSTIC STUDIES/LAB DATA: A 12-lead ECG done by fancy wire drawer on 08/25/19 at 1830 shows regular wide-complex tachycardia at 300 beats a minute, axis has changed from his baseline EKG and this EKG is consistent with ventricular tachycardia. A 12-lead ECG done 08/25/19 at 1858 shows atrial fibrillation with a nonspecific QRS widening, axis +30, ST segments unremarkable. Rate was 135 beats a minute. Labs on arrival, white count 19.3; today, white count 14.5, hematocrit 40, platelets 187. Slight increase in monos and neutrophils. INR 08/25/19 is 4.6, today 3.75. PTT 52. Sodium 138, potassium 4.2, chloride 104, bicarb 30, BUN 15, creatinine 0.72, glucose 83, hemoglobin A1c 7.7. From 08/25/19, sodium was 134, potassium 3.9, magnesium 2.5, glucose was 369. Troponin #1, 0.00; #2, 0.38; #3, 0.81; #4, 0.79; #5, 0.59. Transaminases, AST 15, ALT 17. Urinalysis specific gravity 1.026. Negative for ketones, nitrite, and leukocyte esterase with 2+ glucose. Chest x-ray showed elevation of right hemidiaphragm, chronic, no acute lung field problem. Brain CT showed no acute findings. Transthoracic echo from 08/26/19 done with Definity contrast did not show any focal wall motion abnormalities, low normal to mild depression and systolic function with an ejection fraction of 45% to 50% . The right ventricle cavity diameter was upper limits of normal with mild RV hypokinesis, grossly normal valve function. SUMMARY: Jitendra Ann is a 43-year-old gentleman who developed ventricular tachycardia while walking without his beta-jeramie on. He converted back to his baseline rhythm of AFib with lidocaine and did get some amiodarone as well that was ineffectual. Currently, he is in atrial fibrillation, rate is now controlled, and he is feeling at baseline. For the ventricular tachycardia, as his ejection fraction remains stable, the etiology could have been related to [id number] CAD, although this would more likely present with sudden , hypoxia from walking combined with a potential for rebound tachyarrhythmias with beta-jeramie held. I coordinated care with his regular sports instructor Dr. Esparza and the current plan is to increase his metoprolol. We have educated him about the importance of staying on it and not holding it and Dr. Esparza is going to arrange earlier followup with him this week. We are going to educate the patient to avoid exercise for now until he has seen Dr. Esparza and additional recommendations are made. The patient knows to call immediately if he has any recurrence of these symptoms and if persistent, again call 911. For the patient's atherosclerotic heart disease as the cath was very recent with moderate disease, I am not recommending re-cath here and again his [place] sports instructor will arrange followup for medical management, ischemic management, and rhythm management. We are not planning on a LifeVest as the patient's ejection fraction is 45% to 50%, and there were precipitating factors that can be avoided by resuming a beta- jeramie, and decreasing excessive activity, to ensure adequate oxygenation and ventilation. [id number]/[facility] #: [id number] [facility]
--- NOTE | 2019-08-26 16:45 | DS ---
CC: Dr. Ashley Christie; Dr. Tanmay Esparza; Dr. Cat Eaton DISCHARGE SUMMARY: DATE OF ADMISSION: 08/25/19 DATE OF DISCHARGE: 08/26/19 PRIMARY CARE PROVIDER: Dr. Ashley Christie. OUTPATIENT PROOF MACHINE OPERATOR: Dr. Tanmay Esparza. PRIMARY DIAGNOSES: 1. Ventricular tachycardia. 2. Atrial fibrillation. SECONDARY DIAGNOSES: 1. Diabetes mellitus 2, on insulin. 2. Morbid obesity. 3. Hypertension. 4. Obstructive sleep apnea, on CPAP. CONSULTS: Dr. Cat Eaton of Cardiology. DISCHARGE MEDICATIONS: 1. Metoprolol succinate 75 mg XL daily. 2. Lisinopril 20 mg daily. 3. Atorvastatin 10 mg daily. 4. Insulin glargine 75 units daily. 5. Ertugliflozin 1 tablet daily, 6. Glimepiride 4 mg twice a day. 7. Spironolactone 25 mg daily. 8. Albuterol sulfate 1 puff every 4 hours as needed for shortness of breath. 9. Furosemide 1 tablet daily. 10. Gabapentin 300 mg at bedtime. 11. Clotrimazole cream 1% apply twice a day for 2 weeks for athlete's foot. HISTORY OF PRESENT ILLNESS: Mr. Ann is a 43-year-old man with DM 2, on insulin; AFib, on warfarin; KYM, on CPAP; hypertension; morbid obesity, pending bariatric surgery, who is presenting after being found in the field with ventricular tachycardia. The patient reports that he had went to the lower part of [facility] with his girlfriend and their children on day of presentation. He thought his metoprolol was a water pill, so he held it along with his furosemide because he was concerned from having to urinate while hiking on the trail. The patient states that he had difficulty walking on the trail and ended up turning back to go towards his car. He stopped at the picnic table before reaching his car, as he felt very dizzy, and then blacked out and fell to the grass. After he woke up, he was able to sit back down on the bench, he felt slightly better, but still dizzy, his chest felt a little tight, but denies chest pain. EMS had already been called, put the patient on photography coordinator and noted that he was in ventricular tachycardia. He was administered amiodarone and normal saline in the field, but the patient did not have a change in his symptoms or rhythm, so he was brought to the emergency room for further care. HOSPITAL COURSE: In the emergency room, the patient was noted to be in ventricular tachycardia still, he was given amiodarone and 2 g of magnesium without improvement, so then he was given 200 mg of lidocaine with improvement in his heart rate. The patient reports that is when his symptoms resolved. The patient again denies chest pain. He was noted to be in atrial fibrillation after conversion from VT. The patient was asked to be admitted to Medicine for telemetry monitoring. By next morning, the patient had no significant overnight events on telemetry; however, he was noted to have an elevated troponin which was peaked at 0.81. The patient continued to deny chest pain. He states he only felt a brief flutter overnight, which is his new baseline since being diagnosed with atrial fibrillation. Our cardiology team contacted his outpatient spool sorter who noted that patient recently had an echo, which seem similar to echo that was done during this hospitalization. No significant changes or focal wall motion abnormalities. The patient also had a cath over this summer, which showed [id number] coronary artery disease with some nonobstructive lesions. Decision made between outpatient spool sorter and our inpatient spool sorter to have patient follow up closely in clinic on a higher dose of metoprolol. It was thought that inciting factor for V-tach was missing metoprolol dose and then participating in what would be a strenuous activity for patient. The patient's electrolytes were monitored throughout admission and did not require repletion. The patient was given a copy of his V-tach strips to take to his outpatient spool sorter as per request. The patient was also noted to have an elevated INR, and he does report that he had been taking extra doses of warfarin recently. His warfarin was held and he was educated to follow up very closely in his Coumadin Clinic. REVIEW OF SYSTEMS: By day of discharge, a 10-point review of systems was performed and negative. The patient has not been experiencing orthopnea, shortness of breath, chest pain, lower extremity edema, or dyspnea on exertion. All others negative except as listed in hospital course. PHYSICAL EXAMINATION: Afebrile, heart rate 79, blood pressure 114/63, respiratory rate 20, oxygen saturation 97% on room air. In general, he is a well-appearing obese man in no acute distress, who is alert, interactive, sitting up at bedside, in no acute distress. He is somewhat malodorous. Neck: No JVD. HEENT: With moist mucous membranes. OP clear. Heart: Irregularly irregular without murmurs, gallops, or rubs. Lungs: Clear to auscultation bilaterally. Abdomen: Protuberant, soft, nontender, and nondistended. Lower Extremities: With pigmentation changes distally consistent with chronic venous stasis changes, no edema. DIAGNOSTIC STUDIES/LAB DATA: CBC with leukocytosis to 14, hemoglobin slightly decreased to 13.1 with MCV 83. BMP unremarkable. Hemoglobin A1c 7.7. Troponin peaked at 0.81, down trended before discharge. Chest x-ray with stable elevation of right hemidiaphragm Transthoracic echocardiogram with LV cavity size normal, wall thickness mildly to moderately increased, systolic function reduced with estimated EF 45%-50%, RV cavity size upper limits of normal with systolic function moderately reduced. All valves appear grossly structurally normal with normal function, ascending aorta mildly dilated, no prior echocardiogram available to compare. Brain CT without acute findings. A 12-lead EKG after lidocaine with AFib, with nonspecific QRS widening, axis +30 , ST segments unremarkable, rate was 135 beats a minute. EKG prior to that shows regular wide complex tachycardia, 300 beats a minute, axis changed from baseline EKG consistent with V-tach. DISCHARGE PLAN: The patient will be discharged today to follow up closely with his outpatient spool sorter and primary care physician. He will also return to Coumadin clinic on Tuesday for INR check. His outpatient spool sorter was made aware of hospitalization and findings and will see him this week. The patient was given higher dose of metoprolol succinate for discharge. He was asked to hold his warfarin until educated to restart per his Coumadin Clinic. His INR on discharge was 3.75. Medication adherence was significantly stressed by multiple medical providers this admission. The patient was educated on return precautions which include but are not limited to significant palpitations or new symptoms of chest pain or recurrence of syncope. He was educated to resume a healthy diet low in processed foods and activity as tolerated, but cannot exert himself significantly until after seen by his outpatient spool sorter. He is motivated to follow up with the [facility] in preparation for bariatric surgery later this year. DISPOSITION: To home. CONDITION: Improved. TIME SPENT: Approximately 60 minutes was spent on discharge of this patient, more than half of which was spent with care coordination at bedside for interview and exam. [id number]/[facility] #: [id number] [facility]TDD
[2019-08-26] MEDS ORDERED: Gabapentin CAP(*) 300 MG PO SCH (21:00)
== END 2019-08-26 14:03 | disposition home or self-care (01) | DRG 201 ==
LOC: ED 18:54 → MEDTELE 21:26
PROVIDERS: ADMIT Internal Medicine; ATTEND Internal Medicine
DX: I47.2 Ventricular tachycardia (principal); I42.8 Other cardiomyopathies; Z68.43 Body mass index [BMI] 50.0-59.9, adult; I48.19 Other persistent atrial fibrillation; E66.01 Morbid (severe) obesity due to excess calories; I10 Essential (primary) hypertension; E11.9 Type 2 diabetes mellitus without complications; E78.5 Hyperlipidemia, unspecified; G47.33 Obstructive sleep apnea (adult) (pediatric); R74.8 Abnormal levels of other serum enzymes; Z79.4 Long term (current) use of insulin; Z79.01 Long term (current) use of anticoagulants; Z79.84 Long term (current) use of oral hypoglycemic drugs; Z79.51 Long term (current) use of inhaled steroids; Z79.899 Other long term (current) drug therapy; Z88.8 Allergy status to other drugs, medicaments and biological substances; Z82.49 Family history of ischemic heart disease and other diseases of the circulatory system; Z82.3 Family history of stroke; Z87.891 Personal history of nicotine dependence; Z99.89 Dependence on other enabling machines and devices
CPT/HCPCS: 36415; 70450; 71045; 80048; 80053; 81003; 83036; 83735; 83880; 84484; 85025; 85610; 85730; 93005; 93306; 94660; 96365; 96375; 99285; A9270-GY; C8929; J0282

== ENCOUNTER 2019-08-30 09:45 | Emergency (ER) | payer OTHER ==
--- OUTSIDE RECORDS SUMMARY | 2019-08-30 09:55 | XMS REPORT | Summary of Care ---
:1975 Author Organization [facility] Address [address] [facility] [place] [address] Care Team Providers Name Role Phone Ashley Christie MD Primary Care Provider Reason for Referral Refer to Department Only (Routine) Status Reason Specialty Diagnoses / Referred By Referred To Procedures Contact Contact Pending Review CARDIOLOGY / Diagnoses VT (ventricular tachycardia) (HCC) Atrial fibrillation, unspecified type (HCC) Nerissa Esparza, Cardiology MD Gen Donato MD [address] [place] [address] [place] [phone] Phone: Fax: Reason for Visit Reason Comments Hospital F/U [facility] 08-25 thru 08-26-19, Vtach, syncope and INR high. Scheduled for cardioversion 09-04-19. Encounter Details Date Type Department Care Team Description 08/27/2019 Office Visit Stephanie Clintonbrooks Esparza, Persistent atrial fibrillation (Primary Dx); Cardiology MD Tanmay ASHD (arteriosclerotic heart disease); [facility] [address] Essential hypertension; [place] [address] [place] [address] Chronic diastolic congestive heart failure (HCC); [phone] VT (ventricular tachycardia) (HCC); Atrial fibrillation, unspecified type (HCC) Allergies Active Allergy Reactions Severity Noted Date Comments Metformin GI Reaction 08/16/2016 documented as of this encounter (statuses as of 08/27/2019) Medications Medication Sig Dispensed Refills Start End [...] long-term current use of insulin ([facility]) fluticasone-salmet Take 1 INHL by 1 Inhaler [...] long-term preferred, E11.9 current use of insulin ([facility]) Glucose Blood In 100 Strips by In [...] organism, unspecified laterality, unspecified part of lung amLodipine TAKE ONE TABLET 30 Tab 5 Active (NORVASC) 10 MG BY MOUTH EVERY 9 Oral DAY TabIndications: Benign hypertension Insulin Pen Needle 1 Device by 100 Each 5 Active (NOVOFINE) 32G X 6 Injection route 9 MM Does not apply DAILY. MiscIndications: Type 2 diabetes mellitus with diabetic polyneuropathy, without long-term current use of insulin ([facility]) Ertugliflozin Take 15 mg by 30 Tab 5 Active L-PyroglutamicAc mouth DAILY. New 9 (STEGLATRO) 15 MG higher dose Oral TabIndications: Type 2 diabetes mellitus with diabetic polyneuropathy, with long-term current use of insulin ([facility]) Insulin Glargine Inject 65-75 10 Device 11 Active (BASAGLAR KWIKPEN) Units beneath 9 100 UNIT/ML the skin DAILY. Subcutaneous Solution Pen-injectorIndica tions: Type 2 diabetes mellitus with diabetic polyneuropathy, with long-term current use of insulin ([facility]) glimepiride Take 1 Tab by 60 Tab 5 Active (AMARYL) 4 MG Oral mouth TWICE 9 TabIndications: DAILY. Type 2 diabetes mellitus with diabetic polyneuropathy, with long-term current use of insulin ([facility]) furosemide (LASIX) Take 1 Tab by 30 Tab 5 Active 40 MG Oral mouth DAILY. 9 TabIndications: Edema of both legs spironolactone Take 1 Tab by 90 Tab 3 Active (ALDACTONE) 25 MG mouth DAILY. 9 Oral TabIndications: Chronic diastolic congestive heart failure ([facility]) warfarin Take 2-3 Tabs by 60 Tab 2 Active (COUMADIN) 5 MG mouth DAILY. As 9 Oral directed TabIndications: Atrial fibrillation, unspecified type ([facility]) lisinopril Take 1 Tab by 30 Tab 5 Active (PRINIVIL, mouth DAILY. 9 ZESTRIL) 20 MG Oral TabIndications: Benign hypertension metoprolol Take 1 Tab by 90 Tab 3 Active succinate (TOPROL mouth DAILY. 9 XL) 100 MG Oral TABLET SR 24 HRIndications: Atrial fibrillation, unspecified type (HCC) metoprolol Take 1 Tab by 90 Tab 3 08/27/20 Discontinued succinate (TOPROL mouth DAILY. 9 19 (Dose XL) 50 MG Oral Adjustment) TABLET SR 24 HRIndications: Atrial fibrillation, unspecified type (HCC) documented as of this encounter (statuses as of 08/27/2019) Active Problems Problem Noted Date Abnormal cardiovascular function study 06/14/2019 Overview: Added automatically from request for surgery [id number] Atrial fibrillation 06/06/2019 Atrial fibrillation, unspecified type 06/06/2019 BMI 50.0-59.9, adult 08/16/2016 Benign hypertension 08/16/2016 Type 2 diabetes mellitus with diabetic polyneuropathy, with long-term 2015 current use of insulin documented as of this encounter (statuses as of 08/27/2019) Immunizations Name Administration Dates Next Due Influenza [...] Sign Reading Time Taken Comments Blood Pressure 135/73 08/27/2019 11:04 AM EDT Pulse 72 08/27/2019 11:04 AM EDT Temperature - - Respiratory Rate - - Oxygen Saturation 94% 08/27/2019 11:04 AM EDT Inhaled Oxygen Concentration - - Weight 198.2 kg (437 lb) 08/27/2019 11:04 AM EDT Height 195.6 cm (6' 5") 08/27/2019 11:04 AM EDT Body Mass Index 51.82 08/27/2019 11:04 AM EDT documented in this encounter Patient Instructions Patient InstructionsMcTanmay Gandara MD - 08/27/2019 11:20 AM EDT INCREASE the metoprolol to 100mg once daily. Avoid strenuous exertion for now. As we discussed, I want you to see the electrical heart doctor (Dr. Multani) in [place] to get his opinion about your heart rhythm issues. Let's hold off on scheduling follow up with me until you're seen by EP. documented in this encounter Progress Notes Tanmay Esparza MD - 08/27/2019 11:20 AM EDT [facility] Patient: Jitendra Ann Date of : 1975 Date of Service: 08/27/2019 REFERRING PRACTITIONER: Ashley Christie PRIMARY CARE PROVIDER: Ashley Christie Chief Complaint: Chief Complaint Patient presents with Hospital F/U [facility] 08-25 thru 08-26-19, Vtach, syncope and INR high. Scheduled for cardioversion 09-04-19. History of Present Illness: We had the pleasure of seeing Jitendra Ann today at the [facility]. He is a 43-y.o. male with morbid obesity, severe KYM, DM2, and HTN. He also has persistent atrial fibrillation. He had a false positive nuclear stress test 05/2019 with subsequent left heart cath showing minimal nonobstructive CAD. On 08/25/2019 he presented to [facility] with a sustained wide complex tachycardia (presumed to be VT ) while hiking and converted to Afib with amio and lidocaine. Mr. Ann returns to cardiology clinic today for close f/u after a recent hospitalization at [facility] for sustained VT. He went for a hike and says that he hadn't taken any of his usual medications (including his metoprolol) that day. He says that he was feeling totally fine that day and didn't feel like he was "overdoing it" on the hike. As he finished the hike he suddenly felt very lightheaded and went to sit down on a picnic table and then blacked out and fell to the ground. He says that he was able to hear people while he was out and came to within a minute or so but felt very lightheaded stillafter regaining full consciousness. EMS was called and he was able to stand on his own. No significant CP or dyspnea during the symptoms. At the hospital, he was given an amiodarone load and eventually lidocaine in the ER, which reportedly converted him from VT back to Afib. While we have the EMS 12 lead EKG and a post-conversion 12 lead, there are no 12 lead EKGs from the ER when he initially presented in VT. He was monitored overnight and troponin peaked at 0.8. Other labs were fine. He was seen by Dr. Eaton while in the hospital, and I was in contact with her over the weekend. We agreed that we could increase his beta jeramie and send him home with close f/u. From a symptom standpoint now, he reports feeling OK. No recurrence of his prior symptoms but he does feel pretty fatigued. No significant dyspnea or any CP. No lightheadedness or palpitations and he continues to wear his CPAP. Since his INR was high in the hospital they had instructed him to holdit and unfortunately it was 1.8 today. Patient Active Problem List Diagnosis BMI 50.0-59.9, [...] HEART LEFT; Surgeon: Singh Chaves MD; Location: [facility] Allergies Allergen Reactions Metformin GI Reaction Current [...] HR Take 1 Tab by mouth DAILY. (Patient taking differently: Take 75 mg by mouth DAILY.) spironolactone (ALDACTONE) 25 MG Oral Tab Take [...] file Gets together: Not on file Attends jehovah's witness service: Not on file Active member of [...] History Narrative Works in a Kitchen at [employer] His father lives with him Pet: dog Review of Systems - Negative except as noted in HPI. Physical Exam: Vitals: 08/27/19 1104 BP: 135/73 Pulse: 72 SpO2: 94% Weight: (!) 437 lb (198.2 kg) Height: 6' 5" (1.956 m) Body mass index is 51.82 kg/m. General: Obese, alert 43-y.o. male in [...] Labs: Lab Results Component Value Date NA 138 08/23/2019 K 4.5 08/23/2019 CL 101 08/23/2019 CO2 27 08/23/2019 GLUCOSE 128 (H) 08/23/2019 BUN 16 08/23/2019 CREATININE 0.6 (L) 08/23/2019 CALCIUM 9.3 08/23/2019 TP 6.9 05/10/2019 ALBUMIN 3.7 05/10/2019 AST 19 05/10/2019 ALT 22 05/10/2019 ALK 85 05/10/2019 TBILI 0.4 05/10/2019 EGFR >60 08/23/2019 No results found for: BNP Lab Results Component Value Date CHOL 199 10/26/2018 TRIG 135 10/26/2018 HDL 38 (L) 10/26/2018 LDL 134 (H) 10/26/2018 LDLHDLRATIO 3.5 10/26/2018 CHOLHDLRATIO 5.2 10/26/2018 Cardiac Studies: EKG Today (I personally reviewed): Afib in 90s. Poor R wave progression. Borderline inferior Q waves. No sig change from prior. TTE at [facility] 08/26/2019: -Technically limited study -Mild-moderate LVH. -Estimated LVEF 45-50% -Upper normal RV size with mildly reduced contractility -No gross valvular disease Left Heart Cath 06/19/2019: Non-obstructive coronary artery [...] left heart cath showing minimal nonobstructive CAD. On 08/25/2019 he presented to [facility] with a sustained widecomplex tachycardia (presumed to be VT) while hiking and converted to Afib with amio and lidocaine. ICD-9-CM ICD-10-CM 1. Persistent atrial fibrillation 427.31 I48.19 2. ASHD (arteriosclerotic heart disease) 414.00 I25.10 3. Essential hypertension 401.9 I10 4. Chronic diastolic congestive heart failure (HCC) 428.32 I50.32 428.0 5. VT (ventricular tachycardia) ([facility]) 427.1 I47.2 1. Wide Complex Tachycardia: Dr. Eaton and I both agree that the appearance of the patient's tracing on his 12 lead from EMS looks to be VT. However, given his history of Afib, the rate of 300 bpm, and his young age, I think it's also possible that he had a 1:1 atrial flutter with aberrancy. Givenhis only mild CAD by cath in May, I think an ischemic cause of VT is unlikely. Will proceed as follows: Increasing Toprol XL to [id number] dose of 100mg daily. I've referred him to EP for further evaluation and consideration of whether he needs an EPS. Will hold off on our previous plan for cardioversion out of Afib until he sees EP and we see what their recommendation is. 2. Persistent Atrial Fibrillation: The etiology of atrial fibrillation in this patient is most likely related to obesity, KYM, HTN, and DM. The heart-rate is currently well controlled on the current medical regimen. This patient's [id number] -Vasc score is 2. I recommend the following treatment strategy and medical regimen for this patient: Stroke prevention: Based on the patient's [id number] risk profile, I recommend continuing OACtherapy. Given his morbid obesity, we are using warfarin and his INR had finally become therapeuticstarting on 08/01. He was unfortunately subtherapeutic today after being instructed to hold his doseby the hospital. Rate control: Increasing Toprol XL as above. Rhythm control: Given his young age and the fact that this is "new onset" Afib, I would like to do a trial of sinus rhythm to see if it helps to reduce his dyspnea. I was planning to do that on September 04, but now I'm going to hold off on that until he sees EP. Further workup/management issues: This patient has known obstructive sleep apnea, and I strongly encouraged him to continue wearing his CPAP regularly. 2. Morbid Obesity: I again explained to him that I really want him to go through with bariatric surgery and that ultimately I believe his risk from surgery will be fairly low despite the new diagnosis of Afib. However, given the recent syncope and wide complex tachycardia, he needs EP evaluation prior to undergoing bariatric surgery. 3. Diastolic CHF: Symptoms stable. Continue [...] will plan on f/u in our office sometime after his EP evaluation. If you have any questions or concerns please feel free to call our office at . Tanmay Esparza MD, 08/27/2019, 11:13 This note was created using my previous note as a template; changes were made where appropriate, andall information in the current note is up to date to the best of my knowledge.Electronically signed by Tanmay Esparza MD at 2018 11:58 AM EDTdocumented in this encounter Plan of Treatment Date Type Specialty Care Team Description 08/30/2019 AntiCoag Anticoagulation 09/03/2019 Office Visit Cardiology Gen Multani MD [address] [place] [address] [phone] 10/10/2019 Lab Internal Medicine 10/17/2019 Office Visit Family [facility] Ashley Christie MD [address] [place] [address] [phone] Name Type Priority Associated Diagnoses Order Schedule REFER TO ELECTROPHYSIOLOGY Referral Routine VT (ventricular Expected: tachycardia) ([facility]) 08/27/2019, Atrial fibrillation, Expires: unspecified type ([facility]) 08/27/2020 Health Maintenance Due Date Last Done Comments [...] Author Type Problems Progress Blood Pressure Blood 135/73 No Shahnaz, < 140/90 Pressure (08/27/2019 Ashley Messina, 11:04 AM EDT) Note: This is an individualized treatment (blood pressure) goal for Jitendra Ann: Displayed above (on the left) is your goal for blood pressure control. Your most recent blood pressure is also shown above, on the right. You should try to achieve blood pressures that are lower than your goal listed above (on the left). Weight increase vs. 18 mo CHF 4 (08/27/2019 11:04 AM EDT) No Karen Cuellar RN min (lbs) < 5 Note: This is an individualized treatment (congestive heart failure, CHF) goal for Jitendra Ann: Displayed above (on the right) is how many pounds you are in excess of your lowest weight over the past 18 months. Note that lower numbers are better. Excessive weight gain often indicates fluid reten tion and worsening heart failure. You should contact your doctor immediately if the above number is too high (above your goal, the number on the left). Glycohemoglobin A1c < 7.0 Diabetes 8.3 (07/18/2019 9:14 Ashley Roberts AM, MD Note: This is an individualized treatment (diabetes control, HgbA1C) goal for Jitendra Ann: Displayed above is your progress towards your HgbA1C goal. Your goal is shown above (on the left); your most recent HgbA1C is shown on the right. Note that lower numbers are better. Weight loss vs. 18 Lifestyle 21 (08/27/2019 11:04 AM No Ashley Christie mo max (lbs) >= 10 NEHA ARANDA Note: This is an individualized lifestyle [...] of Care, and any After Visit Summaries. Consume a [id number] diet Lifestyle No Mariama Cuellar RN Note: This is an individualized lifestyle goal for Jitendra Ann: Please do not add additional salt to your food. Additional salt may lead to fluid retention and worsen your congestive heart failure. Take all prescribed medications as Self-management No [...] to be addressed on an ongoing basis. Check your weight daily Self-management Mariama Suarez RN Note: This is an individualized self-management goal for Jitendra Ann: Please check your weight daily. Refer to the accompanying CHF treatment goal and call your doctor immediately for further instructions on how to respond to unexpected weight gain. documented as of this encounter Results Not on filedocumented in this encounter Visit Diagnoses Diagnosis Persistent atrial fibrillation - Primary Atrial fibrillation ASHD (arteriosclerotic heart disease) Coronary atherosclerosis of unspecified type of vessel, chilkat or graft Essential hypertension Unspecified essential hypertension Chronic diastolic congestive heart failure (HCC) Chronic diastolic heart failure VT (ventricular tachycardia) (HCC) Paroxysmal ventricular tachycardia Atrial fibrillation, unspecified type (HCC) documented in this encounter documented as of this encounter Advance Directives Code Status Date Activated Date Inactivated Comments Full Code 06/28/2019 11:36 AM Does the patient have decision making capacity? Yes Order was discussed with: Patient I discussed all options and patient/surrogate requested and agreed to: Full Code
--- NOTE | 2019-08-30 10:11 | ED ---
HPI Cardiac - HPI Summary HPI Summary: Patient is a 43 y/o M presenting to the ED for a chief complaint of palpitations and dizziness. Pt is present with his father. Patient was previously seen at [facility] [place] for dizziness, near syncope, chest pressure, and palpitations after hiking on a trail. Patient does not believe he lost consciousness at that time and reports that the dizziness subsided after sitting. Patient was discharged from [facility] on 08/26/29. Patient states that the most recent episode occurred the night of 08/29/19 when the patient was at rest sitting on a chair. Patient felt dizziness, chest pressure, fatigue, and palpitations he describes as a flutter. Patient also describes pressure on the sides of the neck that began on 08/25/19. Patient denies myalgia. Patient subsequently used oxygen and a CPAP machine when going to sleep which he states gave him some relief. Patient typically uses oxygen at night, for occasional SOB , and a PMHx of pneumonia. Patient states the most recent episode is less severe than the first episode. Patient recently had his Metoprolol dosage increased. Patient saw a stereotyper on 08/27/19 and will see another stereotyper on 09/03/19 at [place]. Patient has a PMHx of HTN, DM, and atrial fibrillation. Patient admits rare alcohol use, but denies tobacco or drug use. Allergies noted. Medications reviewed. - History of Current Complaint Chief Complaint: EDDysrhythmPalp Stated Complaint: CHEST PRESSURE/HEART FLUTTERS PER PT Time Seen by Provider: 08/30/19 09:58 Hx Obtained From: Patient Onset/Duration: Started Days Ago, Atraumatic, Still Present Timing: Intermittent, Lasting Days Initial Severity: Mild Current Severity: Mild Pain Intensity: 1 Pain Scale Used: 0-10 Numeric Chest Pain Location: Diffuse Chest Pain Radiates: No Character: Pressure/Squeezing, Other: - "Flutter" Aggravating Factor(s): Exertion Alleviating Factor(s): Rest, Oxygen Associated Signs and Symptoms: Positive: Chest Pain - Chest pressure, Dizziness , Shortness of Breath - Occasional, not at present time, Palpitations, Other: - Positive fatigue, near syncope, resolved; negative myalgia. Negative: Syncope - Additional Pertinent History Primary Care Physician: [id number] - Allergy/Home Medications Allergies/Adverse Reactions: Allergies Allergy/AdvReac Type Severity Reaction Status Date / Time metformin Allergy Diarrhea Verified 07/25/18 15:04 Home Medications: Home Medications Warfarin TAB(*) 08/30/19 [History] PMH/Surg Hx/FS Hx/Imm Hx Previously Healthy: Yes Endocrine/Hematology History: Reports: Hx Diabetes - type 2 Denies: Hx Thyroid Disease Cardiovascular History: Reports: Hx Atrial Fibrillation, Hx Hypertension Denies: Hx Coronary Artery Disease Respiratory History: Reports: Hx Asthma - as a child Denies: Hx Chronic Obstructive Pulmonary Disease (COPD) GI History: Reports: Other GI Disorders - umbilical hernia Denies: Hx Ulcer Musculoskeletal History: Reports: Other Musculoskeletal History - right ankle fracture at 21yrs old Sensory History: Reports: Hx Vision Problem - Wears glasses at home Denies: Hx Contacts or Glasses, Hx Legally Blind, Hx Deafness, Hx Hearing Aid , Hx Hearing Problem Opthamlomology History: Reports: Hx Vision Problem - Wears glasses at home Denies: Hx Contacts or Glasses, Hx Legally Blind EENT History: Denies: Hx Deafness - Surgical History Surgical History: None Surgery Procedure, Year, and Place: none - Immunization History Date of Influenza Vaccine: 08/14/2019 Immunizations Up to Date: Yes Infectious Disease History: No Infectious Disease History: Denies: Hx Clostridium Difficile, Hx Hepatitis, Hx Human Immunodeficiency Virus (HIV), Hx of Known/Suspected MRSA, Hx Shingles, Hx Tuberculosis, History Other Infectious Disease, Traveled Outside the in Last 30 Days - Family History Known Family History: Positive: Hypertension - Father's side, Diabetes Negative: Cardiac Disease - Social History Occupation: Unemployed Lives: With Family Alcohol Use: Rare Alcohol Amount: 4 drinks a month Hx Substance Use: No Substance Use Type: Reports: None Substance Use Comment - Amount & Last Used: Occasional use for pain Hx Tobacco Use: Yes Smoking Status (MU): Former Smoker Type: Cigarettes Have You Smoked in the Last Year: No Review of Systems Positive: Palpitations, Other - Positive chest pressure Positive: Shortness Of Breath - Occasional Negative: Myalgia Neurological: Other - Positive dizziness, near syncope that is resolved Negative: Syncope All Other Systems Reviewed And Are Negative: Yes Physical Exam - Summary Physical Exam Summary: Constitutional: Well-developed, Well-nourished, Alert. (-) Distressed Skin: Warm, Dry HENT: Normocephalic; Atraumatic Eyes: Conjunctiva normal Neck: Musculoskeletal ROM normal neck. (-) JVD, (-) Stridor, (-) Tracheal deviation Cardio: Rhythm regular, rate normal, Heart sounds normal; Intact distal pulses; Radial pulses are 2+ and symmetric. (-) Murmur. HR is between 115-119 in the room. Pulmonary/Chest wall: Effort normal. (-) Respiratory distress, (-) Wheezes, (-) Rales Abd: Soft, (-) tenderness, (-) Distension, (-) Guarding, (-) Rebound Musculoskeletal: (-) Edema. Good pulses bilaterally in radius, No calf tenderness, No venous cords, No pain with dorsiflexion of foot. Lymph: (-) Cervical adenopathy Neuro: Alert, Oriented x3 Psych: Mood and affect Normal Triage Information Reviewed: Yes Vital Signs On Initial Exam: Initial Vitals Temp Pulse Resp BP Pulse Ox 97.0 F 90 18 149/73 97 08/30/19 09:52 08/30/19 09:52 08/30/19 09:52 08/30/19 09:52 08/30/19 09:52 Vital Signs Reviewed: Yes Procedures - Sedation Patient Received Moderate/Deep Sedation with Procedure: No Diagnostics - Vital Signs Vital Signs Temp Pulse Resp BP Pulse Ox 08/30/19 09:52 97.0 F 90 18 149/73 97 - Laboratory Result Diagrams: 08/30/19 10:21 08/30/19 10:21 Lab Statement: Any lab studies that have been ordered have been reviewed, and results considered in the medical decision making process. - Radiology Chest X-ray Radiology Interpretation Completed By: Radiologist Summary of Radiographic Findings: Chest X-ray IMPRESSION: HYPOINFLATED LUNGS WITH UNCHANGED ELEVATION OF THE RIGHT HEMIDIAPHRAGM. Reviewed by ED physician. - EKG 09:45 Cardiac Rate: Other Rate - 93 BPM EKG Rhythm: Atrial Fibrillation ST Segment: Normal Ectopy: None Summary of EKG Findings: EKG at 09:45 reveals 93 BPM with atrial fibrillation, no STEMI. Reviewed and interpreted by ED physician. Disposition - Course Course Of Treatment: Patient is here with an episode of dizziness. Patient was seen here over the weekend where he had an episode of ventricular tachycardia with resolution following lidocaine. Patient was in atrial fibrillation not in RVR upon arrival here. Patient's hematuria is stable and overall well- appearing. Patient blood performed which was grossly unremarkable. Patient had an elevated troponin over the weekend with downtrending troponin here. Brian was called and do not think patient needs admission to the hospital as he has great follow-up and is taking his medications. - Diagnoses Provider Diagnoses: Dizziness - Physician Notifications Discussed Care Of Patient With: Gabriel Lo - At 11:10, Dr. Azar Lo says the patient can go home and follow up with an US. Time Discussed With Above Provider: 11:10 Discharge ED - Sign-Out/Discharge Documenting (check all that apply): Patient Departure - Discharge - Discharge Plan Condition: Stable Disposition: HOME Patient Education Materials: Dizziness (ED) Referrals: Ashley Christie MD [Primary Care Provider] - Additional Instructions: Follow up with your stereotyper on Tuesday. Return to the emergency department if you have chest pain, shortness of breath, repeated dizziness, or if you faint. If you have any of these symptoms, call 911 and do not wait. - Billing Disposition and Condition Condition: STABLE Disposition: Home - Attestation Statements Document Initiated by Arturo: Yes Documenting Scribe: Kiana Watson Provider For Whom Arturo is Documenting (Include Credential): dA Calderon MD Scribe Attestation: I, Kiana Watson, scribed for Ad Calderon MD on 08/30/19 at 2124. Scribe Documentation Reviewed: Yes Provider Attestation: The documentation as recorded by the Kiana thorne accurately reflects the service I personally performed and the decisions made by me, Ad Calderon MD Status of Scribe Document: Viewed
[2019-08-30 10:37] LABS: ABS Basophils 0.1 10^3/ul (0-0.2); ABS Eosinophils 0.1 10^3/ul (0-0.6); ABS Lymphocytes 1.2 10^3/ul (1.0-4.8); ABS Monocytes 0.8 10^3/ul (0-0.8); ABS Neutrophils 9.8 10^3/ul (1.5-7.7); Eosinophil % 0.6 %; Hematocrit 45 % (42-52); Hemoglobin 14.5 g/dL (14.0-18.0); Lymphocyte % 10.3 %; Mean Corpuscular HGB Conc 33 g/dL (31-36); Mean Corpuscular Hemoglobin 27 pg (27-31); Mean Corpuscular Volume 84 fL (80-94); Mean Platelet Volume 8.9 fL (7.4-10.4); Platelet Count 212 10^3/uL (150-450); Red Blood Count 5.34 10^6 /uL (4.18-5.48); Red Cell Distribution Width 16 % (10-15); White Blood Count 11.9 10^3/uL (3.5-10.8)
[2019-08-30 10:43] LABS: INR 2.43 (0.82-1.09)
[2019-08-30 10:53] LABS: ALT 14 U/L (7-52); AST 11 U/L (13-39); Albumin 3.7 g/dL (3.2-5.2); Albumin/Globulin Ratio 1.2 (1-3); Alkaline Phosphatase 80 U/L (34-104); Anion Gap 6 mmol/L (2-11); BUN/Creatinine Ratio 30.9 (8-20); Blood Urea Nitrogen 21 mg/dL (6-24); CO2 Carbon Dioxide 31 mmol/L (22-32); Calcium 9.4 mg/dL (8.6-10.3); Chloride 100 mmol/L (101-111); EGFR African American 155.5 (>60); EGFR Non-African American 128.5 (>60); Glucose 236 mg/dL (70-100); Potassium 4.8 mmol/L (3.5-5.0); Sodium 137 mmol/L (135-145); Total Protein 6.7 g/dL (6.4-8.9)
[2019-08-30 11:07] LABS: Troponin I 0.06 ng/mL (<0.04)
[2019-08-30 11:32] VITALS: BP 125/50
== END 2019-08-30 11:35 | disposition home or self-care (01) ==
LOC: ED 09:45
DX: R42 Dizziness and giddiness (principal); E11.9 Type 2 diabetes mellitus without complications; I48.91 Unspecified atrial fibrillation; I10 Essential (primary) hypertension; Z87.891 Personal history of nicotine dependence; Z79.01 Long term (current) use of anticoagulants; Z88.8 Allergy status to other drugs, medicaments and biological substances
CPT/HCPCS: 36415; 71045; 80053; 83735; 84484; 85025; 85610; 93005; 99282

== ENCOUNTER 2019-09-21 21:39 | Emergency (ER) | payer OTHER ==
[2019-09-21] MEDS ORDERED: Lidocaine 2% (CARDIAC)* 20 MG/ML 5 ML SYRINGE (100 MG) INJ ONE (21:47)
[2019-09-21] MEDS ORDERED: Amiodarone 150 MG IVPREMIX* 150 MG/100 ML BAG IV ONE (21:49)
[2019-09-21] MEDS ORDERED: Amiodarone IV VIAL** 50 MG/ML 3 ML (150 MG) VIAL SLOW PUSH ONE (21:50)
[2019-09-21] MEDS ORDERED: Diltiazem IV push/loading dose 5 MG/ML 5 ML vial (25 mg) ONE (21:54)
--- NOTE | 2019-09-21 21:56 | ED ---
HPI Cardiac - HPI Summary HPI Summary: Patient is a 43 y/o M w/ Hx of v-tach, afib, diabetes who presents to [facility] via EMS in tach. EMS arrival at 2137 to ED, provider in room immediately upon arrival. Patient reports that earlier today, 09/21/19, he had become suddenly fatigued, dizzy, and subsequently fell. No head injury is noted, the patient states that he remembers the fall. EMS was called. Patient was noted to be profusely diaphoretic on EMS arrival and also to be in v-tach. Patient was started on amioderone drip, 150 mg. It is noted that the patient presented to [facility] a few weeks ago with similar Sx. Patient's V-tach was broken after administration of lidocaine. He denies chest pain but notes some SOB at present. Patient denies having any cardiac stents but reports previous cardiac catheterization. He is alert and oriented x3 at present. On 10 L o2, he is 93% o2 sat. Home medications and allergies are reviewed. - History of Current Complaint Stated Complaint: ABNORMAL HEART RATE PER PT Hx Obtained From: Patient, EMS Onset/Duration: Still Present Timing: Constant Current Severity: None - chest pain denied Pain Scale Used: 0-10 Numeric Character: Dyspnea at Rest Alleviating Factor(s): Medication Associated Signs and Symptoms: Positive: Dizziness, Shortness of Breath, Diaphoresis, Other: - positive - fatigue, fall; negative - head injury. Negative: Chest Pain - Additional Pertinent History Primary Care Physician: [id number] - Allergy/Home Medications Allergies/Adverse Reactions: Allergies Allergy/AdvReac Type Severity Reaction Status Date / Time metformin Allergy Diarrhea Verified 07/25/18 15:04 Home Medications: Home Medications Albuterol HFA INHALER* [Ventolin HFA Inhaler*] 1 puff INH Q4H PRN 09/21/19 [ History Confirmed 09/21/19] Ertugliflozin Pidolate [Steglatro] 15 mg PO DAILY 09/21/19 [History Confirmed ] Furosemide TAB* [Lasix TAB*] 40 mg PO DAILY 09/21/19 [History Confirmed 09/21/19 ] Insulin Glargine,Hum.rec.anlog [Samreenagljulia Eric U-100] 65 - 75 unit SUBCUT DAILY 09/21/19 [History Confirmed 09/21/19] Metoprolol Succinate XL TAB* [Toprol XL TAB*] 100 mg PO DAILY 09/21/19 [History Confirmed 09/21/19] Sertraline* [Zoloft*] 75 mg PO DAILY 09/21/19 [History Confirmed 09/21/19] Spironolactone TAB* [Aldactone TAB*] 25 mg PO DAILY 09/21/19 [History Confirmed 09/21/19] Warfarin TAB(*) [Coumadin TAB(*)] 12.5 mg PO SUTUTHSA 09/21/19 [History Confirmed 09/21/19] Warfarin TAB(*) [Coumadin TAB(*)] 15 mg PO MOWEFR 09/21/19 [History Confirmed ] amLODIPine TAB* [Norvasc 5 mg TAB*] 10 mg PO DAILY 09/21/19 [History Confirmed 09/21/19] PMH/Surg Hx/FS Hx/Imm Hx Endocrine/Hematology History: Reports: Hx Diabetes - type 2 Denies: Hx Thyroid Disease Cardiovascular History: Reports: Hx Atrial Fibrillation, Hx Hypertension, Other Cardiovascular Problems/Disorders - V-tach Denies: Hx Coronary Artery Disease Respiratory History: Reports: Hx Asthma - as a child Denies: Hx Chronic Obstructive Pulmonary Disease (COPD) GI History: Reports: Other GI Disorders - umbilical hernia Denies: Hx Ulcer Musculoskeletal History: Reports: Other Musculoskeletal History - right ankle fracture at 21yrs old Sensory History: Reports: Hx Vision Problem - Wears glasses at home Denies: Hx Contacts or Glasses, Hx Legally Blind, Hx Deafness, Hx Hearing Aid , Hx Hearing Problem Opthamlomology History: Reports: Hx Vision Problem - Wears glasses at home Denies: Hx Contacts or Glasses, Hx Legally Blind - Surgical History Surgery Procedure, Year, and Place: none - Immunization History Date of Influenza Vaccine: 08/14/2019 Infectious Disease History: Denies: Hx Clostridium Difficile, Hx Hepatitis, Hx Human Immunodeficiency Virus (HIV), Hx of Known/Suspected MRSA, Hx Shingles, Hx Tuberculosis, History Other Infectious Disease - Family History Known Family History: Positive: Hypertension - Father's side, Diabetes Negative: Cardiac Disease - Social History Alcohol Use: Rare Alcohol Amount: 4 drinks a month Hx Substance Use: No Substance Use Type: Reports: None Substance Use Comment - Amount & Last Used: Occasional use for pain Hx Tobacco Use: Yes Smoking Status (MU): Former Smoker Type: Cigarettes Have You Smoked in the Last Year: No Review of Systems - ROS Summary Review of Systems Summary: Home Medications Medication Instructions Recorded Confirmed Type Atorvastatin* [Lipitor 10 MG*] 10 mg PO DAILY #30 tab 09/08/17 09/21/19 Rx Gabapentin CAP(*) [Neurontin 300 300 mg PO BEDTIME #30 cap 09/08/17 09/21/19 Rx CAP(*)] Glimepiride (NF) 4 mg PO BID 08/25/19 09/21/19 History Lisinopril TAB* [Prinivil TAB 10 20 mg PO DAILY 08/25/19 09/21/19 History MG*] Clotrimazole 1% CREAM* 1 applic TOPICAL BID #15 tube 08/26/19 09/21/19 Rx [Clotrimazole 1%*] Albuterol HFA INHALER* [Ventolin 1 puff INH Q4H PRN 09/21/19 09/21/19 History HFA Inhaler*] Ertugliflozin Pidolate [Steglatro] 15 mg PO DAILY 09/21/19 09/21/19 History Furosemide TAB* [Lasix TAB*] 40 mg PO DAILY 09/21/19 09/21/19 History Insulin Glargine,Hum.rec.anlog 65 - 75 unit SUBCUT DAILY 09/21/19 09/21/19 History [Basaglar Kwikpen U-100] Metoprolol Succinate XL TAB* 100 mg PO DAILY 09/21/19 09/21/19 History [Toprol XL TAB*] Sertraline* [Zoloft*] 75 mg PO DAILY 09/21/19 09/21/19 History Spironolactone TAB* [Aldactone 25 mg PO DAILY 09/21/19 09/21/19 History TAB*] Warfarin TAB(*) [Coumadin TAB(*)] 12.5 mg PO SUTUTHSA 09/21/19 09/21/19 History Warfarin TAB(*) [Coumadin TAB(*)] 15 mg PO MOWEFR 09/21/19 09/21/19 History amLODIPine TAB* [Norvasc 5 mg TAB*] 10 mg PO DAILY 11/22/19 11/22/19 History Positive: Fatigue, Skin Diaphoresis Negative: Chest Pain Positive: Shortness Of Breath Musculoskeletal: Other - positive - fall Neurological: Other - negative - head injury; positive - dizziness All Other Systems Reviewed And Are Negative: Yes Physical Exam - Summary Physical Exam Summary: General: Well-developed, Morbidly Obese Male. Appears in Moderate Discomfort. HEENT: Normocephalic, Atraumatic. Eyes: Conjuctiva normal, PERRL. Ears: TMs within normal limits. Nares: (-) discharge, (-) erythema. Oropharynx: Clear, mucous membranes moist, (-) exudates. Neck: Soft, FROM, (-) lymphadenopathy, (-) thyromegaly, (-) JVD. Cardiovascular: Rapid heart rate, (-) murmur. Lungs: Distant breath sounds bilaterally (-) wheezes, (-) rales, (-) rhonchi. Abdomen: Soft, non-tender, non-distended, (-) organomegaly, normal bowel sounds. Back: (-) CVA tenderness Extremities: 1+ pitting BLE edema. Skin: Warm, diaphoretic, (-) rash. Neuro: Alert and oriented x3, no focal deficits. Psychiatric: Mood normal, affect normal. Triage Information Reviewed: Yes Vital Signs On Initial Exam: Initial Vitals Temp Pulse Resp BP Pulse Ox 96.6 F 253 18 77/59 98 09/21/19 21:40 09/21/19 21:40 09/21/19 21:40 09/21/19 21:40 09/21/19 21:40 Vital Signs Reviewed: Yes Procedures - Sedation Patient Received Moderate/Deep Sedation with Procedure: No Diagnostics - Laboratory Result Diagrams: 09/21/19 22:20 09/21/19 22:20 Lab Statement: Any lab studies that have been ordered have been reviewed, and results considered in the medical decision making process. - Radiology CXR Radiology Interpretation Completed By: ED Physician Summary of Radiographic Findings: No infiltrate. No pleural effusion. Pending official report. - EKG 2144 Cardiac Rate: Other Rate - Wide QRS tachycardia with rate of 270 BPM Summary of EKG Findings: EKG showed wide QRS tachycardia with rate of 270 BPM, RBBB, no STEMI. This EKG was reviewed and interpreted by Dr. Chris. 215 Cardiac Rate: Other Rate - afib with rate of 119 BPM EKG Rhythm: Atrial Fibrillation EKG Comparison: Other - patient is no longer in v-tach Summary of EKG Findings: EKG showed afib with rate of 119 BPM, no STEMI. This EKG was reviewed and interpreted by Dr. Chris. Re-Evaluation - Re-Evaluation First Eval Re-Evaluation Time: 21:56 Change: Improved Comment: After administration of lidocaine and amiodarone, patient is no longer in v-tach and is in afib currently. Diltiazem, amiodarone drip, and fluids to be administered. Second Eval Re-Evaluation Time: 23:59 Change: Unchanged Comment: Consults were discussed with the patient, he is agreeable with transfer. Third Eval Re-Evaluation Time: 00:02 Change: Unchanged Comment: Transfer center was reached, initial report was given. Disposition - Course Course Of Treatment: 43 y/o M brought in by EMS after episode of near-syncope. Patient found to be in v-tach. He received amiodarone in the ambulance with improvement in rhythm and rate. Upon arrival, however, patient is in v-tach. Patient appeared in significant distress with diaphoresis and hypotension. Patient was given second dose of amiodarone and lidocaine with conversion of rhythm to afib. Patient was givne 2 L IV fluids and amiodarone drip. BP improved , patient was given cardizem. Troponin was 0.03, lactic 3.7, patient is therapeutic on Warfarin with INR of 3.87. He is acidotic on VBG. BG 330 noted. He is also noted to have elevated white count with no fever, no infection noted on CXR or urine. TSH elevated. Discussed patient with hospitalist. After conferring with medical staff specialist head neck surgeon, hospitalist recommended transfer to institution with electrophysiology capabilities. Patient accepted and transferred to [facility] by Dr. Romero. He will be transferred by ambulance with amiodarone drip. - Diagnoses Provider Diagnoses: V tach, Hyperglycemia due to type 2 diabetes mellitus, Near syncope - Physician Notifications Discussed Care Of Patient With: Tahmina Dolan Time Discussed With Above Provider: 23:11 Instructed by Provider To: Other - 2311 - Patient's case was discussed with Dr. Dolan, Dr. Dolan will evaluate the patient and discuss case with cardiology. [id number] - Dr. Dolan reports that she spoke with Dr. Lo, cardiology, about the patient's case. She relays that Dr. Lo advises transfer as the patient will require electrophysiology services for ablation. Transfer process to be intiated. [id number] - Patients case was discussed with Dr. Jhon Romero, cardiology, from [facility]. Dr. Romero accepts for transfer to [facility]. Reason For Transfer: Specialty or service not available at [facility] [place]. Discharge ED - Sign-Out/Discharge Documenting (check all that apply): Patient Departure - transfer - Discharge Plan Condition: Stable Disposition: TRANS HIGHER LVL OF CARE FAC Referrals: Ashley Christie MD [Primary Care Provider] - - Billing Disposition and Condition Condition: STABLE Disposition: Trans Higher Lvl of Care Fac - Attestation Statements Document Initiated by Scribe: Yes Documenting Scribe: YOLETTE PRECIADO Provider For Whom Scribe is Documenting (Include Credential): DK CHRIS MD Scribe Attestation: I, YOLETTE PRECIADO, scribed for DK CHRIS MD on 09/22/19 at 0051. Scribe Documentation Reviewed: Yes Provider Attestation: The documentation as recorded by the YOLETTE thorne accurately reflects the service I personally performed and the decisions made by me, DK CHRIS MD Status of Scribe Document: Viewed
[2019-09-21] MEDS ORDERED: NS 0.9% 1000 ML** 2,000 ML IV ONE (21:58)
[2019-09-21] MEDS ORDERED: Diltiazem IV push/loading dose 5 MG/ML 5 ML vial (25 mg) IV PUSH ONE (21:58)
[2019-09-21] MEDS ORDERED: Amiodarone 360 MG IVPREMIX* 360 MG/200 ML BAG IV ONE (22:10)
[2019-09-21 22:30] LABS: ABS Basophils 0.1 10^3/ul (0-0.2); ABS Lymphocytes 1.3 10^3/ul (1.0-4.8); ABS Monocytes 0.9 10^3/ul (0-0.8); ABS Neutrophils 14.4 10^3/ul (1.5-7.7); Eosinophil % 0.1 %; Hematocrit 41 % (42-52); Hemoglobin 13.4 g/dL (14.0-18.0); Lymphocyte % 7.6 %; Mean Corpuscular HGB Conc 33 g/dL (31-36); Mean Corpuscular Hemoglobin 27 pg (27-31); Mean Corpuscular Volume 84 fL (80-94); Mean Platelet Volume 8.8 fL (7.4-10.4); Platelet Count 236 10^3/uL (150-450); Red Blood Count 4.89 10^6 /uL (4.18-5.48); Red Cell Distribution Width 16 % (10-15); White Blood Count 16.7 10^3/uL (3.5-10.8)
[2019-09-21 22:39] LABS: INR 3.87 (0.82-1.09)
[2019-09-21 22:47] LABS: ALT 18 U/L (7-52); AST 19 U/L (13-39); Albumin 3.6 g/dL (3.2-5.2); Albumin/Globulin Ratio 1.2 (1-3); Alkaline Phosphatase 73 U/L (34-104); Anion Gap 14 mmol/L (2-11); BUN/Creatinine Ratio 16.8 (8-20); Blood Urea Nitrogen 23 mg/dL (6-24); CO2 Carbon Dioxide 22 mmol/L (22-32); Calcium 8.9 mg/dL (8.6-10.3); Chloride 97 mmol/L (101-111); EGFR African American 69.3 (>60); EGFR Non-African American 57.3 (>60); Globulin 2.9 g/dL (2-4); Glucose 331 mg/dL (70-100); Potassium 4.1 mmol/L (3.5-5.0); Sodium 133 mmol/L (135-145); Total Protein 6.5 g/dL (6.4-8.9)
--- OUTSIDE RECORDS SUMMARY | 2019-09-21 22:54 | XMS REPORT | Summary of Care ---
:1975 Author Organization [facility] Address [address] [place] [address] Care Team Providers Name Role Phone Ashley Christie MD Primary Care Provider Reason for Visit Reason Comments Hospital Follow Up Encounter Details Date Type Department Care Team Description 08/31/2019 Office Visit [facility] Hospital discharge follow -up (Primary Dx); Practice Ashley Messina MD Paroxysmal atrial fibrillation ([facility]); [address] Hx of ventricular tachycardia; [place] [address] [place] [address] BMI 50.0-59.9, adult ([facility]); [phone] Type 2 diabetes mellitus with diabetic polyneuropathy, with long-term current use of insulin ([facility]); AARON (generalized anxiety disorder) Allergies Active Allergy Reactions Severity Noted Date Comments Metformin GI Reaction 08/16/2016 documented as of this encounter (statuses as of 08/31/2019) Medications Medication Sig Dispensed Refills Start Date [...] gabapentin Take 1 Cap by 30 Cap 07/19/2018 Active (NEURONTIN) 300 MG mouth EVERY Oral CapIndications: BEDTIME. Type 2 diabetes mellitus with diabetic polyneuropathy, with long-term current use of insulin ([facility]) fluticasone-salmetero Take 1 INHL by 1 Inhaler [...] insurance long-term current use preferred of insulin ([facility]) Lancets Does not by Does not apply 100 Each 07/19/2018 Active apply route DIRECTED. MiscIndications: Type Insulin dependent 2 diabetes mellitus diabetes. Brand: with diabetic insurance polyneuropathy, with preferred, E11.9 long-term current use of insulin ([facility]) Glucose Blood In 100 Strips by In 100 Strip 0 07/19/2018 Active Vitro Vitro route DAILY. StripIndications: uncontrolled Type 2 diabetes non-insulin mellitus with dependent diabetic diabetes; One polyneuropathy, with Touch Verio please long-term current use if covered. of insulin ([facility]) VENTOLIN HFA 108 (90 INHALE TWO PUFFS 18 g 05/01/2019 Active Base) MCG/ACT BY MOUTH EVERY 4 Inhalation Aero HOURS NEEDED ( SolnIndications: WHEEZING) Pneumonia due to infectious organism, unspecified laterality, unspecified part of lung amLodipine (NORVASC) TAKE ONE TABLET BY 30 Tab 5 06/19/2019 Active 10 MG Oral MOUTH EVERY DAY TabIndications: Benign hypertension Insulin Pen Needle 1 Device by 100 Each 06/22/2019 Active (NOVOFINE) 32G X 6 MM Injection route Does not apply DAILY. MiscIndications: Type 2 diabetes mellitus with diabetic polyneuropathy, without long-term current use of insulin ([facility]) Ertugliflozin Take 15 mg by 30 Tab 5 06/29/2019 Active L-PyroglutamicAc mouth DAILY. New (STEGLATRO) 15 MG higher dose Oral TabIndications: Type 2 diabetes mellitus with diabetic polyneuropathy, with long-term current use of insulin ([facility]) Insulin Glargine Inject 65-75 Units 10 Device 11 06/29/2019 Active (BASAGLAR KWIKPEN) beneath the skin 100 UNIT/ML DAILY. Subcutaneous Solution Pen-injectorIndicatio ns: Type 2 diabetes mellitus with diabetic polyneuropathy, with long-term current use of insulin ([facility]) glimepiride (AMARYL) Take 1 Tab by 60 Tab 5 06/29/2019 Active 4 MG Oral mouth TWICE DAILY. TabIndications: Type 2 diabetes mellitus with diabetic polyneuropathy, with long-term current use of insulin ([facility]) furosemide (LASIX) 40 Take 1 Tab by 30 Tab 5 06/29/2019 Active MG Oral mouth DAILY. TabIndications: Edema of both legs spironolactone Take 1 Tab by 90 Tab 3 07/04/2019 Active (ALDACTONE) 25 MG mouth DAILY. Oral TabIndications: Chronic diastolic congestive heart failure ([facility]) warfarin (COUMADIN) 5 Take 2-3 Tabs by 60 Tab 2 07/11/2019 Active MG Oral mouth DAILY. As TabIndications: directed Atrial fibrillation, unspecified type ([facility]) lisinopril (PRINIVIL, Take 1 Tab by 30 Tab 5 08/10/2019 Active ZESTRIL) 20 MG Oral mouth DAILY. TabIndications: Benign hypertension metoprolol succinate Take 1 Tab by 90 Tab 3 08/27/2019 Active (TOPROL XL) 100 MG mouth DAILY. Oral TABLET SR 24 HRIndications: Atrial fibrillation, unspecified type ([facility]) hydrOXYzine HCL Take 0.5-1 Tabs by 30 Tab 1 08/31/2019 Active (ATARAX) 25 MG Oral mouth THREE TIMES TabIndications: AARON DAILY NEEDED (generalized anxiety (anxiety attack). disorder) sedating sertraline (ZOLOFT) Take 1 Tab by 30 Tab 3 08/31/2019 Active 50 MG Oral mouth DAILY. 1/2 TabIndications: AARON tab daily x 1 (generalized anxiety week, then go up disorder) to a full tablet daily. documented as of this encounter (statuses as of 08/31/2019) Active Problems Problem Noted Date Abnormal cardiovascular function study 06/14/2019 Overview: Added automatically from request for surgery [id number] Atrial fibrillation 06/06/2019 Atrial fibrillation, unspecified type 06/06/2019 BMI 50.0-59.9, adult 08/16/2016 Benign hypertension 08/16/2016 Type 2 diabetes mellitus with diabetic polyneuropathy, with long-term 2015 current use of insulin documented as of this encounter (statuses as of 08/31/2019) Immunizations Name Administration Dates Next Due Influenza [...] Sign Reading Time Taken Comments Blood Pressure 120/70 08/31/2019 11:23 AM EDT Pulse 58 08/31/2019 11:23 AM EDT Temperature 36.4 08/31/2019 11:23 AM EDT C (97.6 F) Respiratory Rate - - Oxygen Saturation 91% 08/31/2019 11:23 AM EDT Inhaled Oxygen Concentration - - Weight 196.4 kg (433 lb) 08/31/2019 11:23 AM EDT Height 195.6 cm (6' 5") 08/31/2019 11:23 AM EDT Body Mass Index 51.35 08/31/2019 11:23 AM EDT documented in this encounter Patient Instructions Patient InstructionsAshley Christie MD - 08/31/2019 11:20 AM EDTFor anxiety start sertraline 1/2 tab daily x 1 week, and then go up to a full tab daily. If you feel worse instead of better, stop it an let me know. See me in follow up in 2-3 weeks. If suicidal or homicidal go right to the ER. Your diabetes laboratory tests are due in 3 months. Suicide prevention phone numbers: [facility] behavioral services unit: [phone] Suicide Prevention and Crisis Services: [phone] [employer] Suicide Prevention Lifeline: 126-131-IKGW(8255 Domestic Violence Hotline 24 hours: 241.777.4616 Domestic Violence office (M-F 9-5): [phone] Stay hydrated, continue your current medications. ER is recommended for chest pain or rapid heart rate again. documented in this encounter Progress Notes Ashley Christie MD - 08/31/2019 11:20 AM EDT Nursing Notes: Fatoumata Art LPN 08/31/2019 11:54 AM Signed Chief Complaint Patient presents with Hospital Follow Up Chief Complaint: Hospital Follow up HPI: TCM Statement. Review of the hospitalization: I am seeing for transition of care following hospitalization. The date of discharge was: 08/25--08/26/19 The discharge diagnosis was Ventricular tachycardia, atrial fibrillation Patient presented after passing out after a hike (he had held his furosemide and metoprolol that morning thinking metoprolol was a water pill), was found to be in V Tach. He was given amiodarone and IVF in the field, did not resolve, so was brought to the ER In the ER he was given amiodarone, 2 g magnesium, and then 200 mg lidocaine which finally resolved the V tach. He was then in atrial fibrillation. His INR was high, 3.75 on discharge, and he admitted to taking an extra dose of warfarin. Metoprolol XL was increased to 75 mg daily I reviewed the discharge summary, discharge instructions, and pertinent additional documentation obtained during hospitalization. I reconciled the medications. I also reviewed the Transition of Care documentation done by staff. Consultants: Dr Eaton, cardiology. Brain CT: NAD chest xray: Elevated right hemidiaphragm A1C 7.7 Troponin peak 0.81 The tests that were not available at the time of discharge were reviewed. Additional tests which are not yet available include: none Since hospitalization has patient improved? Yes, palpitations are a bit better Current patient concerns: Has more and more anxiety since he had his cardiac diagnosis and thinks the anxiety causes rapid HR, and then he panics. He requests medication for this today. Denies depression, no suicidal ideation. He saw Tanmay Esparza MD 08/27/19.he increase his metoprolol to 100 mg daily EPS study ordered, for this coming Tuesday. He wondered if he hat aflutter with aberrant conduction. Lab Results Component Value Date INR 2.43 08/30/2019 INR (POCT) 2.1 08/31/2019 Lab Results Component Value Date GLYCO 8.3 (H) 07/18/2019 GLYCO 9.1 (H) 06/06/2019 GLYCO 10.2 (H) 01/15/2019 Patient Active Problem List Diagnosis BMI 50.0-59.9, adult (HCC) Benign hypertension Type 2 diabetes mellitus with diabetic polyneuropathy, with long-term current use of insulin (HCC) Atrial fibrillation (HCC) Atrial fibrillation, unspecified type (HCC) Abnormal cardiovascular function study Past Medical History: Diagnosis Date Asthma as a young child Atrial fibrillation (HCC) 06/06/2019 Diabetes mellitus ([facility]) dx age 37, type 2 Essential (primary) hypertension Past Surgical History: Procedure Laterality Date CATHETERIZATION HEART LEFT N/A 06/28/2019 Procedure: CATHETERIZATION HEART LEFT; Surgeon: Singh Chaves MD; Location: [facility] Outpatient Medications as of 08/31/2019 Medication Sig Dispense Refill albuterol (ACCUNEB) 1.25 [...] DAILY. 15 g 0 Ertugliflozin L-PyroglutamicAc (STEGLATRO) 15 MG Oral Tab Take 15 mg by mouth DAILY. New higher dose 30 Tab 5 fluticasone-salmeterol diskus (ADVAIR DISKUS) 250-50 MCG/DOSE Inhalation AEROSOL POWDER, BREATH ACTIVATED Take 1 INHL by inhalation TWICE DAILY. Rinse your mouth after to prevent thrush 1 Inhaler 5 furosemide (LASIX) 40 MG Oral Tab Take 1 Tab by mouth DAILY. 30 Tab 5 gabapentin (NEURONTIN) 300 MG Oral Cap Take 1 Cap by mouth EVERY BEDTIME. 30 Cap 5 glimepiride (AMARYL) 4 MG Oral Tab Take 1 Tab by mouth TWICE DAILY. 60 Tab 5 Glucose Blood In Vitro Strip 100 Strips by In Vitro route DAILY. uncontrolled non-insulin dependent diabetes; One Touch Verio please if covered. 100 Strip 0 Insulin Glargine (BASAGLAR KWIKPEN) 100 UNIT/ML Subcutaneous Solution Pen -injector Inject 65-75 Units beneath the skin DAILY. 10 Device 11 Insulin Pen Needle (NOVOFINE) 32G X 6 MM Does not apply Misc 1 Device by Injection route DAILY. 100 Each 5 Lancets Does not apply Misc by Does not apply route DIRECTED. Insulin dependent diabetes. Brand: insurance preferred, E11.9 100 Each 5 lisinopril (PRINIVIL, ZESTRIL) 20 MG Oral Tab Take 1 Tab by mouth DAILY. 30 Tab 5 metoprolol succinate (TOPROL XL) 100 MG Oral TABLET SR 24 HR Take 1 Tab by mouth DAILY. 90 Tab 3 spironolactone (ALDACTONE) 25 MG Oral Tab Take 1 Tab by mouth DAILY. 90 Tab 3 VENTOLIN HFA 108 (90 Base) MCG/ACT Inhalation Aero Soln INHALE TWO PUFFS BY MOUTH EVERY 4 HOURS NEEDED ( WHEEZING) 18 g 5 warfarin (COUMADIN) 5 MG Oral Tab Take 2-3 Tabs by mouth DAILY. As directed 60 Tab 2 No current facility-administered medications on file as of 08/31/2019. Allergies Allergen Reactions Metformin GI Reaction Social History Socioeconomic History Marital status: Single [...] file Gets together: Not on file Attends mandaeism service: Not on file Active member of [...] History Narrative Works in a Kitchen at [employer] His father lives with him Pet: dog Family History Problem Relation Age of Onset Hypertension Father Stroke Father Kidney Disease Paternal Grandmother Hypertension Paternal Grandmother Hypertension Paternal Aunt Hypertension Paternal Uncle Diabetes Maternal Uncle Heart No family history Cancer No family history Health Maintenance Topic Date Due HEMOGLOBIN A1C 10/17/2019 LIPID DISORDER SCREENING 10/26/2019 DEPRESSION SCREENING 10/30/2019 FOOT EXAM 06/29/2020 Diabetic Eye Exam 07/24/2020 PNEUMOCOCCAL 0-64 YRS Completed HPV IMMUNIZATION SERIES Aged Out MENINGOCOCCAL VACCINE IMM Aged Out ROS General ROS: negative for - chills or fever, unexpected weight changes ENT ROS: negative for - headaches Respiratory ROS: negative for - cough, shortness of breath Cardiovascular ROS: negative for - chest pain, dyspnea on exertion, edema or palpitations Gastrointestinal ROS: no abdominal pain, change in bowel habits, or black or bloody stools Genito-Urinary ROS: no dysuria, hematuria Neuro: denies headache, focal weakness, numbness Psych: Denies depression, but has anxiety Exam: BP 120/70 (BP Location: Right arm, Patient Position: Sitting) | Pulse 58 | Temp 97.6 F (36.4 C) (Tympanic) | Ht 6' 5" (1.956 m) | Wt (!) 433 lb ( 196.4 kg) | SpO2 91% | BMI 51.35 kg/m Physical Exam Physical Examination: General appearance - alert, well appearing, and in no distress Mental status - alert, oriented to person, place, and time, normal mood, behavior, speech, dress, motor activity, and thought processes Eyes - pupils equal and reactive, extraocular eye movements intact, sclera anicteric Ears - bilateral TM's and external ear canals normal Neck - supple, no cervical or supraclavicular adenopathy, carotids upstroke normal bilaterally, no bruits, thyroid exam: thyroid is normal in size without nodules or tenderness, no neck masses palpated. Chest/Lungs - clear to auscultation, no wheezes, rales or rhonchi, symmetric air entry, good aeration Heart - normal rate, fairly regular rhythm Abdomen - soft, non tender on palpation, nondistended, no masses or hepatosplenomegaly, bowel soundsnormal, normal to percussion, no guarding or rebound. No costervertebral angle tenderness Neurological - alert, oriented, normal speech, no gross focal findings or movement disorder noted Extremities - dorsalis pedis pulses normal, no pedal edema, no clubbing or cyanosis ASSESSMENT/PLAN: ICD-9-CM ICD-10-CM 1. Hospital discharge follow-up V67.59 Z09 2. Paroxysmal atrial fibrillation (HCC) 427.31 I48.0 3. Hx of ventricular tachycardia V12.59 Z86.79 4. BMI 50.0-59.9, adult (HCC) V85.43 Z68.43 5. Type 2 diabetes mellitus with diabetic polyneuropathy, with long-term current use of insulin (HCC) 250.60 E11.42 GLYCOHEMOGLOBIN A1C 357.2 Z79.4 THYROID STIMULATING HORMONE V58.67 COMPREHENSIVE METABOLIC PANEL 6. AARON (generalized anxiety disorder) 300.02 F41.1 hydrOXYzine HCL (ATARAX) 25 MG Oral Tab sertraline (ZOLOFT) 50 MG Oral Tab Coordination of care. (delete one and this phrase) - I am satisfied that appropriate referrals are in place to deal with the problems identified during hospitalization, and that the patient has adequate community resources and support in place. I confirmed the patient's understanding of the diagnosis and plan of care. Specific education that was provided today: Patient Instructions For anxiety start sertraline 1/2 tab daily x 1 week, and then go up to a full tab daily. If you feel worse instead of better, stop it an let me know. See me in follow up in 2-3 weeks. If suicidal or homicidal go right to the ER. Your diabetes laboratory tests are due in 3 months. Suicide prevention phone numbers: [facility] behavioral services unit: [phone] Suicide Prevention and Crisis Services: [phone] [employer] Suicide Prevention Lifeline: 688-044-UXAE(0983) Domestic Violence Hotline 24 hours: 100.474.9687 Domestic Violence office (M-F 9): [phone] Stay hydrated, continue your current medications. ER is recommended for chest pain or rapid heart rate again. Author: Ashley Christie MD 08/31/2019 12:34 documented in this encounter Plan of Treatment Date Type Specialty Care Team Description 09/03/2019 Orders Only Cardiology 09/03/2019 Office Visit Cardiology Gen Multani MD [address] [place] [address] [phone] 09/07/2019 AntiCoag Anticoagulation 09/18/2019 Office Visit Family Practice Ashley Christie MD [address] [place] [address] [phone] 10/10/2019 Lab Internal Medicine 10/17/2019 Office Visit Family Practice Ashley Christie MD [address] [place] [address] [phone] Name Type Priority Associated Diagnoses Order Schedule GLYCOHEMOGLOBIN A1C Lab Routine Type 2 diabetes Expected: 12/01/2019 mellitus with diabetic (Approximate), polyneuropathy, with Expires: 08/31/2020 long-term current use of insulin (HCC) THYROID STIMULATING HORMONE Lab Routine Type 2 diabetes Expected: 2019 mellitus with diabetic (Approximate), polyneuropathy, with Expires: 08/31/2020 long-term current use of insulin ([facility]) COMPREHENSIVE METABOLIC Lab Routine Type 2 diabetes Expected: 12/01/2019 PANEL mellitus with diabetic (Approximate), polyneuropathy, with Expires: 08/31/2020 long-term current use of insulin (HCC) Health Maintenance Due Date Last Done Comments [...] Author Type Problems Progress Blood Pressure Blood 120/70 No Shahnaz, < 140/90 Pressure (08/31/2019 Ashley Messina, 11:23 AM EDT) Note: This is an individualized treatment (blood pressure) goal for Jitendra Ann: Displayed above (on the left) is your goal for blood pressure control. Your most recent blood pressure is also shown above, on the right. You should try to achieve blood pressures that are lower than your goal listed above (on the left). Weight increase vs. 18 mo CHF 0 (08/31/2019 11:23 AM EDT) No Karen Cuellar RN min [...] better. Weight loss vs. 18 Lifestyle 25 (08/31/2019 11:23 AM Ashley Roberts mo max (lbs) >= 10 NEHA ARANDA [...] and any After Visit Summaries. Consume a [id number]-[id number] diet Lifestyle No Mariama Cuellar RN Note: [...] ongoing basis. Check your weight daily Self-management No Mariama Cuellar, RN Note: This is an individualized self-management goal for Jitendra Ann: Please check your weight daily. Refer to the accompanying CHF treatment goal and call your doctor immediately for further instructions on how to respond to unexpected weight gain. documented as of this encounter Procedures Procedure Name Priority Date/Time Associated Diagnosis Comments GLYCO A1C (EXTERNAL) Routine 08/25/2019 documented in this encounter Results GLYCO A1C (EXTERNAL) (08/25/2019) Glyco A1c (External) 7.7 [facility] POCT Performing Organization Address [facility]State[facility] [address] [address] [place] [address] documented in this encounter Visit Diagnoses Diagnosis Hospital discharge follow-up - Primary Other follow-up examination Paroxysmal atrial fibrillation (HCC) Atrial fibrillation Hx of ventricular tachycardia Personal history of other diseases of circulatory system BMI 50.0-59.9, adult (HCC) Body Mass Index 50.0-59.9, adult Type 2 diabetes mellitus with diabetic polyneuropathy, with long-term current use of insulin (HCC) AARON (generalized anxiety disorder) Generalized anxiety disorder documented in this encounter documented as of this encounter Advance Directives Code Status Date Activated Date Inactivated Comments Full Code 06/28/2019 11:36 AM Does the patient have decision making capacity? Yes Order was discussed with: Patient I discussed all options and patient/surrogate requested and agreed to: Full Code
--- OUTSIDE RECORDS SUMMARY | 2019-09-21 22:54 | XMS REPORT | Continuity of Care Document ---
:1975 External Reference #:[id number] Author Name Michell Molina NP (transmitted by agent of provider Sammi Domingo) Address [address], [address] [place] [address] Care Team Providers Name Role Phone Ashley Christie MD - Care Team Information Um Rn Family Medicine Problems Active Problems Provider Date Type 2 diabetes mellitus Onset: Social History Type Date Description Comments Sex Unknown Tobacco Use Start: Unknown End: Former Cigarette Smoker 5-6 years 1/2 Pack Daily Tobacco Use Start: Unknown Secondhand smoke All of his life, father smokes Smoking Status Reviewed: 09/06/19 Secondhand smoke All of his life, father [...] Cannariato, 40mg Tablets Ashley Bowen MD Metoprolol Tartrate 1 by mouth twice a Unknown 100mg day Tablets Immunizations Description No Information Available Vital Signs Date Vital Result Comment 09/06/2019 1:07pm Height 77 inches 6'5" Weight 442.00 lb Heart Rate 71 /min BP Systolic 120 mmHg BP Diastolic 74 mmHg O2 % BldC Oximetry 93 % BMI (Body Mass Index) 52.4 kg/m2 07/13/2019 12:45pm Height 77 inches 6'5" Weight 442.00 lb Heart Rate 60 /min BP Systolic Sitting 120 mmHg Lue large cuff BP Diastolic Sitting 74 mmHg Lue large cuff Respiratory Rate 12 /min O2 % BldC Oximetry 94 % BMI (Body Mass Index) 52.4 kg/m2 Results Description No Information Available Procedures Date Code Description Status 08/26/2019 11528 ECHO Transthorasic Realtime 2D W Doppler & Color Flow Hosp Completed 03/09/2019 32692 Sleep Study Unattended,HRT Rate,Oxygen Sat,Resp Completed Effort/Airflow Medical Devices Description No Information Available Encounters Type Date Location Provider Dx Diagnosis Office Visit 08/26/2019 [facility] Cat Eaton, R55 Syncope and 1:27p Of Terri M.DMary collapse I47.2 Ventricular tachycardia I48.91 Unspecified atrial fibrillation Office Visit 07/13/2019 [facility] Michell G47.33 Obstructive sleep 2:00p [facility] apnea (adult) [facility] (pediatric) E66.01 Morbid (severe) obesity due to excess calories Z68.43 Body mass index (BMI) 50.0-59.9, adult Assessments Date Code Description Provider 09/06/2019 G47.33 Obstructive sleep apnea (adult) (pediatric) Michell Molina NP 09/06/2019 R53.83 Other fatigue Michell Molina NP 09/06/2019 E66.9 Obesity, unspecified Michell Molina NP 08/26/2019 R55 Syncope and collapse Cat Eaton M.D. 08/26/2019 I47.2 Ventricular tachycardia Cat Eaton M.D. 08/26/2019 I48.91 Unspecified atrial fibrillation Cat Eaton M.D. 07/13/2019 G47.33 Obstructive sleep apnea (adult) (pediatric) Michell Molina NP 07/13/2019 E66.01 Morbid (severe) obesity due to excess Michell Molina NP calories 07/13/2019 Z68.43 Body mass index (BMI) 50.0-59.9, adult Michell Molina NP 03/09/2019 G47.33 Obstructive sleep apnea (adult) (pediatric) Ijeoma Travis MD Plan of Treatment Future Appointment(s):12/07/2019 1:30 pm - Michell Molina NP at [facility]09/06/2019 - Michell Molina NPG47.33 Obstructive sleep apnea (adult) (pediatric)Follow up:3 monthsRecommendations: Now that you are feeling better, please resume CPAP usage. If is very important for you to use your CPAP nightly, especially given your history of abnormal heart rhythms. If you have difficulty with your equipment, or need to replace your mask or hoses, please contact your homecare agency. If you have any further questions, please call the [facility] at [phone] If you have anysleepiness while driving you MUST avoid operating a vehicle or machinery. If you feel tired while driving pot puller and take a nap or switch drivers. If you know you are sleepy and need to go somewhere, arrange for a ride or use public transportation. It is very important to not risk your safety or the safety of others.R53.83 Other poxlqvuQ18.9 Obesity, unspecifiedRecommendations:It is important to bring your [...]
--- OUTSIDE RECORDS SUMMARY | 2019-09-21 22:54 | XMS REPORT | Summary of Care ---
:1975 Author Organization [facility] Address [address] [facility] [place] [address] Care Team Providers Name Role Phone Ashley Christie MD Primary Care Provider Reason for Visit Reason Comments Follow Up Afib, VT, SOB Refer to Department Only (Routine) Status Reason Specialty Diagnoses / Referred By Referred To Procedures Contact Contact Pending Review CARDIOLOGY / Diagnoses VT (ventricular tachycardia) (HCC) Atrial fibrillation, unspecified type (HCC) Nerissa Esparza, Cardiology MD Gen Donato MD [address] [place] [address] [place] [phone] Phone: Fax: Encounter Details Date Type Department Care Team Description 09/10/2019 Office Visit [facility] Gen Multani, Typical atrial flutter (HCC) (Primary Dx); [address] [place] (ventricular tachycardia) (HCC); [place] [phone] [address] [facility] Atrial fibrillation, unspecified type (HCC); [phone] [place] [id number] BMI 50.0-59.9, adult (HCC); [phone] Type 2 diabetes mellitus with diabetic polyneuropathy, with long-term current use of insulin ([facility]); Benign hypertension Allergies Active Allergy Reactions Severity Noted Date Comments Metformin GI Reaction 08/16/2016 documented as of this encounter (statuses as of 09/10/2019) Medications Medication Sig Dispensed Refills Start Date [...] with long-term current use of insulin (HCC) fluticasone-salmetero Take 1 INHL by 1 Inhaler [...] insurance long-term current use preferred of insulin (HCC) Lancets Does not by Does not apply 100 Each 07/19/2018 Active apply route DIRECTED. MiscIndications: Type Insulin dependent 2 diabetes mellitus diabetes. Brand: with diabetic insurance polyneuropathy, with preferred, E11.9 long-term current use of insulin (HCC) Glucose Blood In 100 Strips by In 100 Strip 0 07/19/2018 Active Vitro Vitro route DAILY. StripIndications: uncontrolled Type 2 diabetes non-insulin mellitus with dependent diabetic diabetes; One polyneuropathy, with Touch Verio please long-term current use if covered. of insulin (HCC) VENTOLIN HFA 108 (90 INHALE TWO PUFFS [...] polyneuropathy, without long-term current use of insulin ([facility]) Ertugliflozin Take 15 mg by 30 Tab 5 06/29/2019 Active L-PyroglutamicAc mouth DAILY. New (STEGLATRO) 15 MG higher dose Oral TabIndications: Type 2 diabetes mellitus with diabetic polyneuropathy, with long-term current use of insulin ([facility]) Insulin Glargine Inject 65-75 Units 10 Device 11 06/29/2019 Active (BASAGLAR KWIKPEN) beneath the skin 100 UNIT/ML DAILY. Subcutaneous Solution Pen-injectorIndicatio ns: Type 2 diabetes mellitus with diabetic polyneuropathy, with long-term current use of insulin ([facility]) glimepiride (AMARYL) Take 1 Tab by 60 Tab 5 06/29/2019 Active 4 MG Oral mouth TWICE DAILY. TabIndications: Type 2 diabetes mellitus with diabetic polyneuropathy, with long-term current use of insulin ([facility]) furosemide (LASIX) 40 Take 1 Tab by 30 Tab 5 06/29/2019 Active MG Oral mouth DAILY. TabIndications: Edema of both legs spironolactone Take 1 Tab by 90 Tab 3 07/04/2019 Active (ALDACTONE) 25 MG mouth DAILY. Oral TabIndications: Chronic diastolic congestive heart failure (HCC) warfarin (COUMADIN) 5 Take 2-3 Tabs by 60 Tab 2 07/11/2019 Active MG Oral mouth DAILY. As TabIndications: directed Atrial fibrillation, unspecified type ([facility]) lisinopril (PRINIVIL, Take 1 Tab by 30 Tab 5 08/10/2019 Active ZESTRIL) 20 MG Oral mouth DAILY. TabIndications: Benign hypertension metoprolol succinate Take 1 Tab by 90 Tab 3 08/27/2019 Active (TOPROL XL) 100 MG mouth DAILY. Oral TABLET SR 24 HRIndications: Atrial fibrillation, unspecified type ([facility]) hydrOXYzine HCL Take 0.5-1 Tabs by 30 [...] as of this encounter (statuses as of 09/10/2019) Active Problems Problem Noted Date Abnormal cardiovascular function study 06/14/2019 Overview: Added automatically from request for surgery [id number] Atrial fibrillation 06/06/2019 Atrial fibrillation, unspecified type 06/06/2019 BMI 50.0-59.9, adult 08/16/2016 Benign hypertension 08/16/2016 Type 2 diabetes mellitus with diabetic polyneuropathy, with long-term 2015 current use of insulin documented as of this encounter (statuses as of 09/10/2019) Immunizations Name Administration Dates Next Due Influenza [...] Sign Reading Time Taken Comments Blood Pressure 138/62 09/10/2019 1:49 PM EST Pulse 98 09/10/2019 1:49 PM EST Temperature - - Respiratory Rate - - Oxygen Saturation - - Inhaled Oxygen Concentration - - Weight 199.6 kg (440 lb) 09/10/2019 1:49 PM EST Height 193 cm (6' 4") 09/10/2019 1:49 PM EST Body Mass Index 53.56 09/10/2019 1:49 PM EST documented in this encounter Patient Instructions Patient InstructionsZechariah Green NP - 09/10/2019 2:00 PM ESTWe believe you had an episode of one to one atrial flutter. Please follow up with Dr Esparza for cardioversion. Continue weight loss. Continue current medication.Electronically signed by Zechariah Green NP at 2018 2:26 PM EST documented in this encounter Progress Notes Zechariah Green NP - 09/10/2019 2:00 PM EST PATIENT: Jitendra Ann : 1975 DATE OF SERVICE: 09/10/2019 Chief Complaint Patient presents with Follow Up Afib, VT, SOB Referred by Dr. Esparza I, Zechariah CUENCA am taking down these notes in the presence of Dr Gen Multani. Jitendra Ann is a 43-y.o. male patient presents the office today for evaluation for atrial fibrillation/atrial flutter. Patient has significant history for morbid obesity, obstructive sleep apnea, diabetes, and hypertension. Patient states approximately in December he was going to get bariatric surgery when they found that he was in atrial fibrillation. 06/13/2019 echocardiogram: FINAL IMPRESSION: Technically poor study despite use [...] No prior study is available for comparison. 06/13/19 thallium stress test:FINDINGS: 1. Nuclear stress test performed using intravenous [...] images are pending and will appear separately. 06/28/2019 left heart cath: Non-obstructive coronary artery disease High normal LV filling pressures 08/25 through 08/26/2019 admission to [facility] for possible ventricular tachycardia. Patient relates on 08/25 he was attempting to go on a hike with his new girlfriend. He states he did forget to take his medication however did not feel as though he was overdoing it on the hike. He states after returning and coming off of the [place] he began having lightheadedness was attempting to set on a picnic table and passed out falling to the ground. [facility] found to have tachycardia at rates of 295 bpm. He was treated with amiodarone and lidocaine and converted after medication. Patient states while in the hospital his metoprolol was increased to 100 mg daily and he does not feel as though he has been in tachycardia since that time. He states he had one episode where he had a brief few second feeling of palpitations howeverthis passed without intervention. At this time patient states he is feeling fine he denies lightheadedness, chest pain, shortness of breath, or edema. Current Outpatient Medications Medication Sig albuterol (ACCUNEB) [...] diabetes; One Touch Verio please if covered. hydrOXYzine HCL (ATARAX) 25 MG Oral Tab Take 0.5-1 Tabs by mouth THREE TIMES DAILY NEEDED (anxiety attack). sedating Insulin Glargine (BASAGLAR KWIKPEN) 100 UNIT/ML Subcutaneous [...] by mouth DAILY. metoprolol succinate (TOPROL XL) 100 MG Oral TABLET SR 24 HR Take 1 Tab by mouth DAILY. sertraline (ZOLOFT) 50 MG Oral Tab Take 1 Tab by mouth DAILY. 1/2 tab daily x 1 week, then goup to a full tablet daily. spironolactone (ALDACTONE) 25 MG Oral Tab Take 1 Tab by mouth DAILY. VENTOLIN HFA 108 (90 Base) MCG/ACT Inhalation Aero Soln INHALE TWO PUFFS BY MOUTH EVERY 4 HOURS NEEDED ( WHEEZING) warfarin (COUMADIN) 5 MG Oral Tab Take 2-3 Tabs by mouth DAILY. As directed No current facility-administered medications for this visit. Allergies: is allergic to metformin. Medical History: Past Medical History: Diagnosis Date Asthma as a young child Atrial fibrillation (HCC) 06/06/2019 Diabetes mellitus (HCC) dx age 37, type 2 Essential (primary) hypertension Patient Active Problem List Diagnosis BMI 50.0-59.9, adult (HCC) Benign hypertension Type 2 diabetes mellitus with diabetic polyneuropathy, with long-term current use of insulin (HCC) Atrial fibrillation (HCC) Atrial fibrillation, unspecified type (HCC) Abnormal cardiovascular function study Social History: reports that he is a non-smoker but has been exposed to tobacco smoke. He has been exposed to 0.30 packs per day for the past 4.00 years. He has never used smokeless tobacco. He reports that he does not drink alcohol or use drugs. Family History: family history includes Diabetes in his maternal uncle; Hypertension in his father, paternal aunt, paternal grandmother, and paternal uncle; Kidney Disease in his paternal grandmother; Stroke in his father. Family history noted and non contributory for this patient. Past Surgical History: Procedure Laterality Date CATHETERIZATION HEART LEFT N/A 06/28/2019 Procedure: CATHETERIZATION HEART LEFT; Surgeon: Singh Chaves MD; Location: [facility] REVIEW OF SYSTEMS Constitutional: negative for fever, chills, weight loss, malaise/ fatigue and diaphoresis. HENT: Negative for hearing loss, nosebleeds, congestion, sore throat, neck pain and tinnitus. Eyes: negative for blurred vision, double vision, photophobia, amaurosis fugax, pain, discharge, andredness. Respiratory: Negative for cough, hemoptysis, sputum production, wheezing and stridor. Cardiac: Negative for orthopnea, edema, angina, claudication, palpitations, dizziness, and syncope. GI: Negative for heartburn, nausea, vomiting diarrhea,constipation, and melena. : Negative for dysuria, urgency, frequency, hematuria and flank pain. Musculoskeletal: Negative for myalgias, back pain, joint pain and falls. Skin: Negative for rash and itching. Endocrine/heme: Negative for polydipsia. Does not bruise or bleed easily. Psychiatric/behavioral: Negative for depression/anxiety/ suicidal ideas/ hallucinations I have reviewed the above history collected by clinical staff and review of systems. PHYSICAL EXAM BP 138/62 | Pulse 98 | Ht 6' 4" (1.93 m) | Wt (!) 440 lb (199.6 kg) | BMI 53.56 kg/m Physical Exam Constitutional: He is oriented to person, place, and time. He appears well- developed and well-nourished. No distress. HENT: Head: Normocephalic. Neck: Normal range of motion. Neck supple. No JVD present. Cardiovascular: Normal rate, regular rhythm and normal heart sounds. Exam reveals no gallop and no friction rub. No murmur heard. Pulmonary/Chest: Effort normal and breath sounds normal. Musculoskeletal: Normal range of motion. General: No edema. Neurological: He is alert and oriented to person, place, and time. Skin: Skin is warm and dry. Psychiatric: He has a normal mood and affect. DATA REVIEW: Evaluation to date: 09/10/2019 electrocardiogram atrial fibrillation rate 98 QRSd 104 QTc 467 I have reviewed all pertinent diagnostic studies for this patient. 09/10/2019 Reviewed all pertinent imaging, echocardiograms, and EKG's. IMPRESSION/PLAN ICD-9-CM ICD-10-CM 1. Typical atrial flutter ([facility]) 427.32 I48.3 2. VT (ventricular tachycardia) ([facility]) 427.1 I47.2 REFER TO ELECTROPHYSIOLOGY 3. Atrial fibrillation, unspecified type ([facility]) 427.31 I48.91 REFER TO ELECTROPHYSIOLOGY 4. BMI 50.0-59.9, adult ([facility]) V85.43 Z68.43 5. Type 2 diabetes mellitus with diabetic polyneuropathy, with long-term current use of insulin ([facility]) 250.60 E11.42 357.2 Z79.4 V58.67 6. Benign hypertension 401.1 I10 Status of this condition is stable. Discussed with patient his care. He states he is taking Coumadin at this time to keep his INR above2 then is planned for cardioversion with Dr. Esparza. Patient states he has had no episodes sincebeing on metoprolol. EKG was reviewed at this time it is believed that the EKG is showing one-to-one atrial flutter. Recommendation at this time is that patient remains on anticoagulation and undergoes cardioversion. We will be happy to reevaluate this patient in the future. Instructions: We believe you had an episode of one to one atrial flutter. Please follow up with Dr Esparza for cardioversion. Continue weight loss. Continue current medication. Zechariah Green NP 09/10/2019 16:25 documented in this encounter Plan of Treatment Date Type Specialty Care Team Description 09/14/2019 AntiCoag Anticoagulation 09/18/2019 Office Visit [facility] Ashley Christie MD [address] [place] [address] [phone] 10/10/2019 Lab Internal Medicine 10/17/2019 Office Visit Family Practice Ashley Christie MD [address] [place] [address] [phone] Health Maintenance Due Date Last Done Comments LIPID DISORDER SCREENING 10/26/2019 10/26/2018, 07/31/2018, 03/02/2017, Additional history exists DEPRESSION SCREENING 10/30/2019 10/30/2018 HEMOGLOBIN A1C 11/25/2019 08/25/2019, 07/18/2019, 06/06/2019, Additional history exists FOOT EXAM 06/29/2020 06/29/2019, 06/29/2019, 06/29/2019, Additional [...] Author Type Problems Progress Blood Pressure Blood 138/62 No Shahnaz, < 140/90 Pressure (09/10/2019 Ashley Messina, 1:49 PM EST) Note: This is an individualized treatment (blood pressure) goal for Jitendra Ann: Displayed above (on the left) is your goal for blood pressure control. Your most recent blood pressure is also shown above, on the right. You should try to achieve blood pressures that are lower than your goal listed above (on the left). Weight increase vs. 18 mo CHF 7 (09/10/2019 1:49 PM EST) Karen Suarez RN min (lbs) < 5 Note: This [...] Diabetes 8.3 (07/18/2019 9:14 No Ashley Christie AM, MD Note: This is an individualized treatment (diabetes control, HgbA1C) goal for Jitendra Ann: Displayed above is your progress towards your HgbA1C goal. Your goal is shown above (on the left); your most recent HgbA1C is shown on the right. Note that lower numbers are better. Weight loss vs. 18 Lifestyle 18 (09/10/2019 1:49 PM No Ashley Christie mo max (lbs) >= 10 EST) Note: This is an individualized lifestyle goal [...] and any After Visit Summaries. Consume a [id number] diet Lifestyle No Mariama Cuellar RN Note: [...] basis. Check your weight daily Self-management No Reeter, Mariama, RN Note: This is an individualized self-management goal for Jitendra Nickolas Seth: Please check your weight daily. Refer to the accompanying CHF treatment goal and call your doctor immediately for further instructions on how to respond to unexpected weight gain. documented as of this encounter Results Not on filedocumented in this encounter Visit Diagnoses Diagnosis Typical atrial flutter (HCC) - Primary Atrial flutter VT (ventricular tachycardia) (HCC) Paroxysmal ventricular tachycardia Atrial fibrillation, unspecified type (HCC) BMI 50.0-59.9, adult (HCC) Body Mass Index 50.0-59.9, adult Type 2 diabetes mellitus with diabetic polyneuropathy, with long-term current use of insulin (HCC) Benign hypertension Essential hypertension, benign documented in this encounter documented as of this encounter Advance Directives Code Status Date Activated Date Inactivated Comments Full Code 06/28/2019 11:36 AM Does the patient have decision making capacity? Yes Order was discussed with: Patient I discussed all options and patient/surrogate requested and agreed to: Full Code
[2019-09-21 22:58] LABS: Troponin I 0.03 ng/mL (<0.03)
[2019-09-21 23:21] LABS: TSH (Thyroid Stimulating Horm) 8.42 mcIU/mL (0.34-5.60)
[2019-09-22 00:02] LABS: Urine Appearance Cloudy; Urine Bilirubin Negative (Negative); Urine Blood Negative (Negative); Urine Color Yellow; Urine Glucose 3+(>=500 mg/dL) (Negative); Urine Ketones Trace (Negative); Urine Nitrite Negative (Negative); Urine Protein 2+(100 mg/dL) (Negative); Urine Specific Gravity 1.023 (1.010-1.030); Urine Urobilinogen Negative (Negative)
[2019-09-22 00:09] LABS: Urine Bacteria 1+ (Absent); Urine Red Blood Cell 1+(3-5/hpf) (Absent); Urine Squamous Epithelial Cell Present (Absent); Urine White Blood Cell Trace(0-5/hpf) (Absent)
[2019-09-22] MEDS ORDERED: Aspirin 81 mg CHEW TAB* 81 MG TAB.CHEW PO ONE (00:45)
[2019-09-22 01:40] VITALS: BP 139/89
== END 2019-09-22 01:38 | disposition short-term general hospital (02) ==
LOC: ED 21:39
DX: I47.2 Ventricular tachycardia (principal); E11.65 Type 2 diabetes mellitus with hyperglycemia; R55 Syncope and collapse; I48.91 Unspecified atrial fibrillation; I10 Essential (primary) hypertension; Z87.891 Personal history of nicotine dependence; Z79.01 Long term (current) use of anticoagulants; Z79.4 Long term (current) use of insulin; Z79.899 Other long term (current) drug therapy; Z88.8 Allergy status to other drugs, medicaments and biological substances
CPT/HCPCS: 36415; 71045; 80053; 81003; 81015; 82803; 83605; 83880; 84443; 84484; 85025; 85610; 87086; 93005; 96374; 96375; 96376; 99285; A9270-GY

== ENCOUNTER 2020-01-30 07:30 | Inpatient (IN) | payer OTHER ==
[2020-05-28] MEDS ORDERED: Dexamethasone IV 4 MG/ML VIAL 1 ml VIAL IV SLOW PU ONE (06:00)
[2020-05-28] MEDS ORDERED: Famotidine IV 10 MG/ML 2 ml VIAL (20 mg) IV ONE (06:00)
[2020-05-28] MEDS ORDERED: Buffered Lidocaine 1% SYRIN 1 ml INTRADERM ONE ×2 (06:00→08:33)
[2020-05-28] MEDS ORDERED: Levalbuterol 0.63MG/3ML NEB UNIT OF USE INH ONE ×2 (06:00→08:32)
[2020-05-28] MEDS ORDERED: Lidocaine 2% PF 5 ML VIAL ONE (08:25)
[2020-05-28] MEDS ORDERED: Rocuronium 50 mg VIAL 10 mg/ml 5 ml VIAL (50 mg) ONE ×2 (08:25→12:08)
[2020-05-28] MEDS ORDERED: Ketamine HCL 50 mg/ml 10 ml VIAL (500 MG) ONE (08:26)
[2020-05-28] MEDS ORDERED: fentaNYL 250 mcg/5 ml 50 MCG/ML 5 ml VIAL (250 MCG) ONE (08:26)
[2020-05-28] MEDS ORDERED: Midazolam 5 mg/5 ml VIAL 1 mg/ml 5 ml VIAL (5 mg) ONE (08:26)
[2020-05-28] MEDS ORDERED: Dexamethasone IV 4 MG/ML VIAL 1 ml VIAL ONE (08:31)
[2020-05-28] MEDS ORDERED: Heparin 5000 UNITS/ML 1 mL VIAL ONE (08:31)
[2020-05-28] MEDS ORDERED: ceFAZolin 2 GM PREMIX 2 GM/50 ML BAG ONE (08:32)
[2020-05-28] MEDS ORDERED: Sugammadex 500 MG/5 ML 5 ml VIAL IV PUSH ONE (08:32)
[2020-05-28] MEDS ORDERED: ceFAZolin 1 GM ADVAN 1 GM ADDV.VIAL IVPB ONE (08:32)
[2020-05-28] MEDS ORDERED: Famotidine IV 10 MG/ML 2 ml VIAL (20 mg) ONE (08:33)
[2020-05-28] MEDS ORDERED: Ondansetron 4 mg VIAL 2 MG/ML 2 ml VIAL ONE ×2 (08:35→13:55)
[2020-05-28] MEDS: Lactated Ringers 1000 ml BAG 1,000 ML IV SCH ×4 (08:57→22:22)
[2020-05-28 09:28] LABS: INR 1.3 (0.82-1.09)
[2020-05-28] MEDS ORDERED: Thrombin 5,000 UNITS 1 APPLIC KIT - topical use - TOPICAL ONE (11:32)
[2020-05-28] MEDS ORDERED: Ondansetron 4 mg VIAL 2 MG/ML 2 ml VIAL IV PRN ×2 (12:27→13:48)
[2020-05-28] MEDS ORDERED: Naloxone 0.4 mg VIAL 0.4 mg/ml 1 ml VIAL IV PRN (12:27)
[2020-05-28] MEDS ORDERED: HYDROmorphone 1 MG/1 ML SYRINGE IV SLOW PU PRN (13:48)
[2020-05-28] MEDS ORDERED: HYDROcodone/ACET. 7.5/325 LIQ 15 ML UDC PO PRN (13:48)
[2020-05-28] MEDS ORDERED: HYDROmorphone 0.5 MG/0.5 ML SYRINGE IV SLOW PU PRN (13:48)
[2020-05-28] MEDS ORDERED: fentaNYL 100 mcg/2 ml 50 MCG/ML VIAL ONE ×2 (13:54→14:24)
[2020-05-28] MEDS: fentaNYL 100 mcg/2 ml 50 MCG/ML VIAL IV PRN ×4 (14:00→14:35)
[2020-05-28] MEDS ORDERED: Albuterol HFA INHALER 8 gm MDI INH PRN (14:04)
[2020-05-28] MEDS ORDERED: Dextrose 50% Syringe 50 ml 25 GM/50 ML SYRINGE IV PUSH PRN (14:11)
[2020-05-28] MEDS: Metoprolol Tartrate 5 mg VIAL 5 ml VIAL (1 mg/ml) IV SCH ×2 (16:47→23:19)
[2020-05-28] MEDS: Famotidine IV 10 MG/ML 2 ml VIAL (20 mg) IV SLOW PU SCH (21:20)
[2020-05-28] MEDS: Heparin 5000 UNITS/ML 1 mL VIAL SUBCUT SCH (22:22)
[2020-05-29 04:37] LABS: ABS Lymphocytes 0.5 10^3/ul (1.0-4.8); ABS Monocytes 0.4 10^3/ul (0-0.8); Hematocrit 44 % (42-52); Hemoglobin 14.8 g/dL (14.0-18.0); Mean Corpuscular HGB Conc 33 g/dL (31-36); Mean Corpuscular Hemoglobin 28 pg (27-31); Mean Corpuscular Volume 85 fL (80-94); Platelet Count 159 10^3/uL (150-450); Red Cell Distribution Width 16 % (10-15); White Blood Count 11.4 10^3/uL (3.5-10.8)
[2020-05-29 04:42] LABS: INR 1.23 (0.82-1.09)
[2020-05-29 04:53] LABS: Albumin 3.7 g/dL (3.2-5.2); Albumin/Globulin Ratio 1.4 (1-3); BUN/Creatinine Ratio 34.8 (8-20); Calcium 8.9 mg/dL (8.6-10.3); EGFR African American 152.1 (>60); EGFR Non-African American 125.7 (>60); Globulin 2.7 g/dL (2-4); Potassium 4.6 mmol/L (3.5-5.0); Total Bilirubin 0.4 mg/dL (0.2-1.0); Total Protein 6.4 g/dL (6.4-8.9)
[2020-05-29] MEDS: Metoprolol Tartrate 5 mg VIAL 5 ml VIAL (1 mg/ml) IV SCH ×4 (04:55→22:56)
[2020-05-29] MEDS: Lactated Ringers 1000 ml BAG 1,000 ML IV SCH ×2 (05:05→12:14)
[2020-05-29] MEDS: Heparin 5000 UNITS/ML 1 mL VIAL SUBCUT SCH ×3 (06:25→21:46)
[2020-05-29] MEDS: Famotidine IV 10 MG/ML 2 ml VIAL (20 mg) IV SLOW PU SCH ×2 (08:04→21:46)
[2020-05-29] MEDS: D5W 1/2 NS KCl 20 meq 1000 ml 1,000 ML IV SCH (16:15)
[2020-05-30] MEDS: D5W 1/2 NS KCl 20 meq 1000 ml 1,000 ML IV SCH (00:27)
[2020-05-30] MEDS: Metoprolol Tartrate 5 mg VIAL 5 ml VIAL (1 mg/ml) IV SCH (04:40)
[2020-05-30] MEDS: Heparin 5000 UNITS/ML 1 mL VIAL SUBCUT SCH (06:14)
[2020-05-30 07:51] VITALS: BP 154/89
[2020-05-30] MEDS: Famotidine IV 10 MG/ML 2 ml VIAL (20 mg) IV SLOW PU SCH (08:53)
[2020-05-31] MEDS ORDERED: Scopolamine PATCH Remove NOTE PATCH OFF SCH (18:59)
== END 2020-05-30 11:10 | disposition home or self-care (01) | DRG 403 ==
LOC: AA 05-28 07:41 → SSU 05-28 13:48
PROVIDERS: ADMIT Surgery; ATTEND Surgery